=== PATIENT | male | born 1955 | race Caucasian/White ===

== ENCOUNTER 2019-01-20 12:32 | Inpatient (IN) ==
--- OUTSIDE RECORDS SUMMARY | 2019-01-20 12:35 | External Medical Summary | Continuity of Care Document ---
:1955 Author Name Micha Ellison Address Unavailable Unavailable , Care Team Providers Name Role Phone Unavailable Unavailable Unavailable Zackery Batres PA-C Unavailable [email or web address] M.D. 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) Dysfunction of right eustachian tube (381.81) (H69.81) Functional Status Hearing loss Allergies and Adverse Reactions No Known Drug Allergies (Allergy) Medications Clarithromycin 500 MG Oral Tablet; Take 1 tablet twice daily NASIR Batres Start: 02-Sep-2015 Quantity: 20 Refills: 0 Procedures Procedures not documented Immunizations Immunizations not documented Family History Unknown Family Member Family history of Diabetes Mellitus (V18.0) Status: Active Comments: Family History Family history of Prostate Cancer (V16.42) Status: Active Comments: Family History Social History - Smoking Status Never smoker Plan of Treatment Planned Observations Planned Goals not documented Results No Known Results Results not documented
[2019-01-20] MEDS ORDERED: KETOROLAC TROMETHAMINE 15 MG/ML VIAL IV STA (13:08)
[2019-01-20] MEDS ORDERED: ONDANSETRON INJ 2 MG/ML 2 ML VIAL IV STA (13:08)
[2019-01-20] MEDS: SODIUM CHLORIDE 0.9% 1000ML 1,000 ML IV SCH ×3 (13:22→22:43)
[2019-01-20 13:30] LABS: Appearance Urine Clear (Clear); Bacteria Urine Automated 3+ (Negative); Bilirubin Urine Negative (Negative); Blood Urine Trace (Negative); Color Urine Dark Yellow; Epithelial Cell Urine Auto 0-5 /lpf (0-5); Glucose Urine UA Negative (Negative); Ketones Urine 2+ (Negative); Leukocyte Esterase Urine 1+ (Negative); Nitrite Urine Positive (Negative); Protein Urine 1+ (Negative); RBC Urine Automated 0-4 /hpf (0-4); Specific Gravity Urine 1.034 (1.000-1.030); Urobilinogen Urine Negative (Negative); WBC Urine Automated >30 /hpf (0-5)
[2019-01-20 13:43] LABS: Albumin Level 3.4 gm/dl (3.4-5.0); BUN Creatinine Ratio 23.7 (10-20); Calcium 8.9 mg/dl (8.5-10.1); Creatinine Clr Calc Pharmacy 106.4 ml/min; Est GFR (African American) 111.3; Est GFR (Non-African American) 96.1; Potassium 4.4 mmol/L (3.5-5.1)
[2019-01-20 13:45] LABS: Bilirubin,Total 0.9 mg/dl (0.2-1); Globulin 3.3 gm/dl (2.5-4.0); Total Protein 6.7 gm/dl (6.4-8.2)
[2019-01-20 13:54] LABS: Hematocrit (blood only) 42.4 % (42-52); Hemoglobin 14.5 g/dL (14.0-18.0); Mean Corpuscular Hemoglobin 30.9 pg (25-34); Mean Corpuscular Hgb Conc 34.2 g/dL (32-36); Mean Corpuscular Volume 90.4 fL (80-100); RDW Standard Deviation 45.8 fL (36.4-46.3); Red Blood Count 4.69 M/uL (4.7-6.1)
[2019-01-20 13:55] LABS: Basophils # (auto) 0.01 K/uL (0-0.2); Basophils % (auto) 0.1 %; Eosinophils # (auto) 0.01 K/uL (0-0.5); Eosinophils % (auto) 0.1 %; Immature Granulocytes # (auto) 0.25 K/uL (0.00-0.02); Immature Granulocytes % (auto) 1.6 %; Lymphocytes # (auto) 2.86 K/uL (1.2-3.4); Lymphocytes % (auto) 17.9 %; Monocytes # (auto) 1.44 K/uL (0.11-0.59); Neutrophils # (auto) 11.43 K/uL (1.4-6.5); Neutrophils % (auto) 71.3 %
[2019-01-20] MEDS ORDERED: IOVERSOL 100ml IV PRN (14:23)
--- NOTE | 2019-01-20 14:39 | CT Scan Report ---
ABDOMEN AND PELVIS CT WITH IV CONTRAST CT DOSE: 1176.78 mGycm HISTORY: Acute bilateral flank pain b/l flank pain, ?renal stone on urgent KUB TECHNIQUE: Multiaxial CT images of the abdomen and pelvis were performed following the use of intrave nous contrast. A dose lowering technique was utilized adhering to the principles of ALARA. COMPARISON STUDY: Chest radiograph 08/26/2015 FINDINGS: Bibasilar groundglass opacities suggest probable atelectasis. Enlarged subcarinal lymph nodes. There is no pneumatosis or pneumoperitoneum. Imaged inferior cardiac chambers are mildly enlarged. Moderate attenuating circumscribed ovoid 2.3 x 1.3 x 2.8 cm cystic structure about the right epicardial fat p ad is noted abutting the pericardium. Spleen is mildly enlarged, 13.8 cm. Pancreas, gallbladder, adre nal glands appear unremarkable. There is suggestion of hepatic steatosis. Otherwise unremarkable appe arance of the liver. 5 mm hypodense lesion of the inferior right hepatic lobe is too small to charact erize. Patency of the hepatic and portal veins. Multiple renal sinus cysts are noted bilaterally, left greater than right. 1.3 cm cortical cyst of th e inferior pole left kidney. No renal or ureteral calculi or obstructive uropathy. Ureters are unrema rkable. Circumferential wall thickening of the bladder with perivesicular stranding. Prostamegaly. Sm all fat filled left inguinal hernia. Moderate sized right inguinal hernia contains mesenteric fat and nonobstructed loop of ileum. There is no bowel obstruction. Mild rectal wall thickening with mild pe rirectal inflammatory stranding. Moderate formed stool about the ascending and transverse colon. The appendix is not definitively seen. Aorta and IVC are unremarkable. Prominent inguinal chain lymph nodes measure up to 8 mm on the left. Prominent bilateral iliac chain with multiple enlarged retroperitoneal lymph nodes involving the nsaeem caval, and periaortic distributions. Index lymph node in the periaortic distribution measures 2.0 x 1 .1 cm on image 268 of series 3. Enlarged periportal and multiple prominent mesenteric lymph nodes are also present. Cluster of adenopathy seen about the right lower quadrant mesentery. Enlarged left axi llary chain lymph nodes measure up to 11 mm in short axis. Left iliac chain lymph node measures up to 2.3 x 1.8 cm. Soft tissues are within normal limits. No suspicious lytic or blastic bony lesions. De generative changes of the pelvis, hips and spine. IMPRESSION: 1. No renal calculi, ureteral calculi or obstructive uropathy. 2. Prostamegaly with urinary bladder wall thickening and perivesicular stranding. Correlate with urin alysis to exclude cystitis. 3. Mild rectal wall thickening with perirectal inflammation and prominent perirectal lymph nodes. Cor relate clinically to exclude proctitis. Findings also be correlated with colonoscopy if clinically wa rranted. 4. Enlarged subcarinal, periaortic, pericaval, iliac and axillary chain with prominent inguinal chain and mesenteric lymph nodes are nonspecific. Primary differential considerations would be a lymphopro liferative disorder or metastatic disease from unknown primary. Oncologic workup recommended. 5. Moderate right inguinal hernia contains mesenteric fat and nonobstructed loop of ileum. 6. Probable pericardial cyst, 2.8 cm. Electronically signed by: Osman Ness M.D. 01/20/2019 2:38 PM
[2019-01-20] MEDS ORDERED: cefTRIAXone SODIUM 2,000 MG/70 ML BAG IV STA (14:42)
[2019-01-20] MEDS ORDERED: SODIUM CHLORIDE 0.9% 1000ML 2,000 ML IV ONE (14:42)
[2019-01-20] MEDS ORDERED: PROCHLORPERAZINE 2 ML IV ONE (16:41)
[2019-01-20] MEDS ORDERED: ACETAMINOPHEN 1,000 MG/100 ML VIAL IV STA (16:41)
--- NOTE | 2019-01-20 21:24 | History and Physical Report ---
DATE OF ADMISSION: 01/20/2019 CHIEF COMPLAINT: Abdominal pain, flank pain and fever. HISTORY OF PRESENT ILLNESS: This is a 63-year-old male with no significant past medical history except for having UTI about 25 years ago, not on any medications, presents with ongoing fever, abdominal discomfort and flank pain and burning micturition going for last 3 days. Denies any hematuria. He was constipated a couple of days ago, but that got relieved. He did not eat anything in the last 24 hours, feeling nauseous, but currently hungry and wants to eat. Has some headaches. No blurred vision, no earache, no runny nose. Complains of some soreness in the neck, but no stiffness of the neck. No difficulty swallowing. No cough, no chest pain, no shortness of breath. No black stools or blood in the stools. No swelling in the legs, no rash. He is currently very weak and requiring help for ambulation. Prior to this episode, he was active. ALLERGIES: No known drug allergies. PAST MEDICAL HISTORY: As mentioned above. PAST SURGICAL HISTORY: Repair of inguinal hernia. MEDICATIONS: None. FAMILY HISTORY: Significant for mother had diabetes. SOCIAL HISTORY: . No smoking, no alcohol, no drugs. REVIEW OF SYMPTOMS: As per HPI. Rest of review of systems is negative. PHYSICAL EXAMINATION: GENERAL: The patient is of moderate build, not in acute distress. VITAL SIGNS: Temperature 36.9, pulse 77, respiratory rate 19, blood pressure 91/54, oxygen 94% on room air. HEENT: No pallor, no icterus. Pupils equal, round, reactive to light. NECK: No JVD, no neck masses, no carotid bruits. CARDIOVASCULAR: S1, S2 heard, regular rate and rhythm, no murmur, no gallop. RESPIRATORY SYSTEM: Normal AP diameter. No accessory muscle use. No wheezing, no crackles. ABDOMEN: Soft, bowel sounds present. Mild diffuse discomfort. No guarding, no rigidity. No distention. CENTRAL NERVOUS SYSTEM: Cranial nerves II-XII grossly nonfocal. EXTREMITIES: No edema, no erythema. LABORATORY DATA: WBC 16, hemoglobin 14.5, hematocrit 42.4. Sodium 136, potassium 4.4, chloride 105, bicarbonate 24, BUN 19, creatinine 0.7, serum glucose 123, calcium 8.9, total bilirubin 0.9, AST 18, ALT 24, alkaline phosphatase 71, lipase 59. Urinalysis positive for nitrite, leukocyte esterase. CT of abdomen and pelvis, no renal calculi, ureteral calculi or obstructive uropathy, prostatomegaly with urinary bladder wall thickening and perivascular stranding, correlate with urinalysis to exclude cystitis, mild rectal wall thickening with perirectal inflammation and prominent perirectal lymph nodes. Correlate clinically to exclude proctitis. Findings may be correlated with colonoscopy if clinically warranted. Enlarged subcarinal, periaortic, pericaval, iliac and axillary chain with prominent inguinal chain and mesenteric lymph nodes are nonspecific. Primary differential considerations are of lymphoproliferative disorder or metastatic disease of unknown primary. Oncology workup is recommended. Moderate right inguinal hernia containing mesenteric fat and nonobstructing loop of ileum, probable pericardial shift is 2.8 cm. ASSESSMENT AND PLAN: A 63-year-old male presents with ongoing cystitis,possible pyelonephritis. 1. Cystitis,possible pyelonephritis, ongoing fever, burning micturition,with abdominal pain for last 3 days, history of infection of urine 25 years ago. Received Rocephin in the ER. We will follow the cultures. UA is positive. Continue IV Rocephin, IV fluids. Closely monitor on the medical floor. Has prostatomegaly may consider consulting Urology or followup as outpatient. 2. Possible proctitis and rectal wall thickening. He did not have a colonoscopy in more than 10 years. We will consult GI while patient is here in the hospital. 3. Pericardial cyst on the CAT scan. We will get echocardiogram. 4. Enlarged lymphadenopathy in subcarinal, periaortic, pericaval, iliac and axillary chain and mesenteric lymph nodes, questionable differentials include lymphoproliferative disorder or metastatic disease from unknown primary. Needs an Oncology workup. Await GI input. Needs followup. 5. Deep venous thrombosis prophylaxis, sequential compression devices. 6. Disposition: Closely monitor on medical floor. Level 1 full code. MTDD
--- NOTE | 2019-01-20 21:27 | Emergency Department Note ---
Entered by Inocencia Molina acting as a scribe for History of Present Illness General Chief complaint: Flank Pain Stated complaint: LOWER BACK PAIN, AVALOS, FEVER Time Seen by Provider: 01/20/19 12:39 Source: patient History of Present Illness Provider complaint: Flank Pain Onset (ago): day(s) 2 Location: back (flank) Pain Consistency: + constant Maximum Pain Intensity: 10 Relieved By: not by medication (anti-nausea medication) Exacerbated By: + movement Associated symptoms: + denies other symptoms (diarrhea), + nausea/vomiting and + other (Painful Urination) The patient is a 63 year old male who presents to the Emergency Room with complaints of constant flank pain that began two days ago. The patient denies any diarrhea but reports nausea, vomiting, and painful urination. The patient states he has experienced about 5 episodes today while taking anti-nausea medication. He notes that the pain is worse with movement. The patient mentioned he had a previous bacterial infection in his kidneys 25 years prior but denies any history of kidney stones. Home Medications Home Medications Medication Instructions Recorded Confirmed Type acetaminophen [Tylenol Extra 500 mg PO Q6H PRN 01/20/19 01/20/19 History Strength] ibuprofen 200 mg PO Q6H PRN 01/20/19 01/20/19 History ondansetron 4 mg PO ONCE 01/20/19 01/20/19 History ondansetron 4 mg PO Q6H PRN 01/20/19 01/20/19 History Allergies Allergy/AdvReac Type Severity Reaction Status Date / Time No Known Allergies Allergy Unverified 01/20/19 14:18 Past Med/Surg History Medical History Kidney infection Family History Other No pertinent family history in first degree relatives Social History Preferred Language: Sinhala Communication Ability: Effective Beliefs That Will Affect Care: None Current Living Situation: Significant Other Other Information That Helps Us Care for You: No Feels Safe at Home: Yes Safety Concerns: Feels Safe At This Time Smoking Status: Never smoker Hx Alcohol Use: No Hx Substance Use: No Review of Systems See HPI for pertinent positives & negatives. and A total of 10 systems reviewed and were otherwise negative Physical Exam Vital Signs Vital Signs - 24 hr 01/20/19 12:35 01/20/19 13:25 01/20/19 13:27 Temperature 36.7 C Temperature Source Oral Sepsis Recent Fever Within 48 Hours No Sepsis New/Unexplained Change in Mental Status No Sepsis Action Taken by Nursing No Action Required Pulse Rate 78 72 Pulse Rate [Finger] Pulse Rate from SpO2 Sensor 72 Respiratory Rate 18 21 Respiratory Effort / Characteristics Non-Labored Respiratory Depth Normal Blood Pressure 112/72 Blood Pressure [Left Arm] Blood Pressure Mean 85 Blood Pressure Mean [Left Arm] Pulse Oximetry 96 94 94 Oxygen Delivery Method Room Air Room Air 01/20/19 13:30 01/20/19 14:00 01/20/19 14:30 Temperature Temperature Source Sepsis Recent Fever Within 48 Hours Sepsis New/Unexplained Change in Mental Status Sepsis Action Taken by Nursing Pulse Rate 73 70 69 Pulse Rate [Finger] Pulse Rate from SpO2 Sensor 72 70 Respiratory Rate 21 20 22 Respiratory Effort / Characteristics Respiratory Depth Blood Pressure Blood Pressure [Left Arm] Blood Pressure Mean Blood Pressure Mean [Left Arm] Pulse Oximetry 93 92 Oxygen Delivery Method 01/20/19 14:32 01/20/19 15:00 01/20/19 15:17 Temperature Temperature Source Sepsis Recent Fever Within 48 Hours Sepsis New/Unexplained Change in Mental Status Sepsis Action Taken by Nursing Pulse Rate 69 75 84 Pulse Rate [Finger] 66 Pulse Rate from SpO2 Sensor 69 74 82 Respiratory Rate 19 22 17 Respiratory Effort / Characteristics Respiratory Depth Blood Pressure 94/58 L 124/80 Blood Pressure [Left Arm] 94/58 L Blood Pressure Mean 70 94 Blood Pressure Mean [Left Arm] 70 Pulse Oximetry 94 95 94 Oxygen Delivery Method Room Air 01/20/19 15:20 01/20/19 15:21 01/20/19 15:30 Temperature Temperature Source Sepsis Recent Fever Within 48 Hours Sepsis New/Unexplained Change in Mental Status Sepsis Action Taken by Nursing Pulse Rate 74 74 73 Pulse Rate [Finger] Pulse Rate from SpO2 Sensor 75 74 74 Respiratory Rate 23 23 19 Respiratory Effort / Characteristics Respiratory Depth Blood Pressure 123/80 127/70 Blood Pressure [Left Arm] Blood Pressure Mean 94 89 Blood Pressure Mean [Left Arm] Pulse Oximetry 94 94 95 Oxygen Delivery Method 01/20/19 16:00 01/20/19 16:30 01/20/19 16:34 Temperature Temperature Source Sepsis Recent Fever Within 48 Hours Sepsis New/Unexplained Change in Mental Status Sepsis Action Taken by Nursing Pulse Rate 72 83 76 Pulse Rate [Finger] Pulse Rate from SpO2 Sensor 73 80 76 Respiratory Rate 21 18 26 H Respiratory Effort / Characteristics Respiratory Depth Blood Pressure 107/70 121/74 146/94 H Blood Pressure [Left Arm] Blood Pressure Mean 82 89 111 Blood Pressure Mean [Left Arm] Pulse Oximetry 96 92 94 Oxygen Delivery Method 01/20/19 17:00 01/20/19 17:04 01/20/19 17:30 Temperature Temperature Source Sepsis Recent Fever Within 48 Hours Sepsis New/Unexplained Change in Mental Status Sepsis Action Taken by Nursing Pulse Rate 82 79 82 Pulse Rate [Finger] Pulse Rate from SpO2 Sensor Respiratory Rate 30 H 18 22 Respiratory Effort / Characteristics Respiratory Depth Blood Pressure 114/65 124/75 Blood Pressure [Left Arm] Blood Pressure Mean 81 91 Blood Pressure Mean [Left Arm] Pulse Oximetry Oxygen Delivery Method 01/20/19 17:31 01/20/19 18:00 01/20/19 18:30 Temperature Temperature Source Sepsis Recent Fever Within 48 Hours Sepsis New/Unexplained Change in Mental Status Sepsis Action Taken by Nursing Pulse Rate 77 79 77 Pulse Rate [Finger] Pulse Rate from SpO2 Sensor Respiratory Rate 22 22 24 Respiratory Effort / Characteristics Respiratory Depth Blood Pressure 109/67 101/57 L Blood Pressure [Left Arm] Blood Pressure Mean 81 71 Blood Pressure Mean [Left Arm] Pulse Oximetry Oxygen Delivery Method 01/20/19 19:00 01/20/19 19:03 01/20/19 19:30 Temperature Temperature Source Sepsis Recent Fever Within 48 Hours Sepsis New/Unexplained Change in Mental Status Sepsis Action Taken by Nursing Pulse Rate 77 73 69 Pulse Rate [Finger] Pulse Rate from SpO2 Sensor Respiratory Rate 19 29 H 21 Respiratory Effort / Characteristics Respiratory Depth Blood Pressure 91/54 L 91/54 L 103/62 Blood Pressure [Left Arm] Blood Pressure Mean 66 66 75 Blood Pressure Mean [Left Arm] Pulse Oximetry Oxygen Delivery Method 01/20/19 19:31 01/20/19 20:00 01/20/19 20:01 Temperature Temperature Source Sepsis Recent Fever Within 48 Hours Sepsis New/Unexplained Change in Mental Status Sepsis Action Taken by Nursing Pulse Rate 70 74 75 Pulse Rate [Finger] Pulse Rate from SpO2 Sensor Respiratory Rate 19 18 22 Respiratory Effort / Characteristics Respiratory Depth Blood Pressure 102/64 Blood Pressure [Left Arm] Blood Pressure Mean 76 Blood Pressure Mean [Left Arm] Pulse Oximetry Oxygen Delivery Method GENERAL: Awake, alert, fatigued appearing, in no distress HENT: Normocephalic, atraumatic. Oropharynx with dry mucous membranes and otherwise unremarkable. EYES: Normal conjunctiva. Sclera non-icteric. NECK: Supple. No nuchal rigidity. FROM. No JVD. RESPIRATORY: Clear to auscultation bilaterally. CARDIAC: Regular rate, normal rhythm. Extremities warm and well perfused. Pulses equal. ABDOMEN: Soft, non-distended. No tenderness to palpation. No rebound or guarding. No masses. RECTAL: Deferred. MUSCULOSKELETAL: Chest examination reveals no tenderness. The back is symmetrical on inspection without obvious abnormality. There is no CVA ten derness to palpation. No joint edema. LOWER EXTREMITIES: Calves are equal size bilaterally and non-tender. No edema. No discoloration. NEURO: Normal sensorium. No sensory or motor deficits noted. SKIN: No rash or jaundice noted. Course 1253: Past medical records reviewed. The patient was evaluated in room C12B. A complete history and physical exam was performed. 1445: I reevaluated the patient and he is resting comfortably. I discussed the patient's test results and treatment plan with him. He verbally agrees and understands. 1934: I spoke with Dr. Guy about the patient's case. He will accept the patient for further evaluation. Administered Medications Sodium Chloride (Nss 1000ml) 1,000 mls @ 125 mls/hr IV .Q8H JUAN Stop: 02/19/19 22:01 Last Admin: 01/20/19 22:43 Dose: 125 mls/hr Documented by: [id number] Ondansetron HCl (Zofran) 4 mg IV Q6H PRN PRN Reason: Nausea Stop: 02/19/19 22:01 Last Admin: 01/20/19 22:43 Dose: 4 mg Documented by: [id number] Discontinued Medications Sodium Chloride (Nss 1000ml) 1,000 mls @ 999 mls/hr IV .Q1H1M JUAN Stop: 01/20/19 15:15 Last Infusion: 01/20/19 16:00 Dose: 0 mls/hr Documented by: [id number] Admin: 01/20/19 14:50 Dose: 999 mls/hr Documented by: [id number] Infusion: 01/20/19 14:28 Dose: 0 mls/hr Documented by: [id number] Admin: 01/20/19 13:22 Dose: 999 mls/hr Documented by: [id number] Ceftriaxone Sodium (Rocephin) 2,000 mg in 70 mls @ 140 mls/hr IV NOW STA Stop: 01/20/19 15:11 Last Infusion: 01/20/19 17:02 Dose: 0 mls/hr Documented by: [id number] Admin: 01/20/19 15:21 Dose: 140 mls/hr Documented by: [id number] Sodium Chloride (Nss 1000ml) 2,000 mls @ 999 mls/hr IV .Q2H1M ONE Stop: 01/20/19 16:42 Last Infusion: 01/20/19 17:56 Dose: 0 mls/hr Documented by: [id number] Admin: 01/20/19 15:21 Dose: 999 mls/hr Documented by: [id number] Acetaminophen (Ofirmev) 1,000 mg in 100 mls @ 400 mls/hr IV NOW STA Stop: 01/20/19 16:55 Last Infusion: 01/20/19 17:18 Dose: 0 mls/hr Documented by: [id number] Admin: 01/20/19 16:58 Dose: 400 mls/hr Documented by: [id number] Prochlorperazine (Compazine) 2 mls @ 1 mls/min IV ONE ONE Stop: 01/20/19 16:42 Last Admin: 01/20/19 16:58 Dose: 1 mls/min Documented by: [id number] Ioversol (Optiray 320 100ml) 93 ml IV ONCE PRN PRN Reason: Interaction Checking Stop: 01/24/19 14:22 Last Admin: 01/20/19 14:23 Dose: 93 ml Documented by: [id number] Ketorolac Tromethamine (Toradol) 15 mg IV NOW STA Stop: 01/20/19 13:09 Last Admin: 01/20/19 13:22 Dose: 15 mg Documented by: [id number] Ondansetron HCl (Zofran) 4 mg IV NOW STA Stop: 01/20/19 13:09 Last Admin: 01/20/19 13:22 Dose: 4 mg Documented by: [id number] Medical Decision Making Differential Diagnosis Differential diagnosis: Etiologies such as shingles, pyelonephritis/UTI, renal colic, appendicitis, diverticulitis, mesenteric ischemia, torsion, aortic pathology, infections, inflammatory bowel disease, bowel obstruction, PUD, biliary pathology, as well as others were entertained. Medical Records Attestation: I reviewed the patient's medical records. Home Medications Current Medication List: was personally reviewed by me Laboratory Data Attestation: I reviewed the patient's lab results. Result diagrams: 01/20/19 13:16 01/20/19 13:16 Lab Results 01/20/19 01/20/19 01/20/19 Range/Units 13:16 13:16 13:16 WBC 16.00 H (4.8-10.8) K/uL RBC 4.69 L (4.7-6.1) M/uL Hgb 14.5 (14.0-18.0) g/dL Hct 42.4 (42-52) % MCV 90.4 (80-100) fL MCH 30.9 (25-34) pg MCHC 34.2 (32-36) g/dL RDW Std Deviation 45.8 (36.4-46.3) fL RDW Coeff of Ho 14.0 (11.5-14.5) % Plt Count (130-400) K/uL Immature Gran % (Auto) 1.6 % Neut % (Auto) 71.3 % Lymph % (Auto) 17.9 % [place] % (Auto) 9.0 % Eos % (Auto) 0.1 % Baso % (Auto) 0.1 % Immature Gran # (Auto) 0.25 H (0.00-0.02) K/uL Neut # (Auto) 11.43 H (1.4-6.5) K/uL Lymph # (Auto) 2.86 (1.2-3.4) K/uL [place] # (Auto) 1.44 H (0.11-0.59) K/uL Eos # (Auto) 0.01 (0-0.5) K/uL Baso # (Auto) 0.01 (0-0.2) K/uL Sodium 136 (136-145) mmol/L Potassium 4.4 (3.5-5.1) mmol/L Chloride 105 (98-107) mmol/L Carbon Dioxide 24 (21-32) mmol/L Anion Gap 7.0 (3-11) BUN 19 H (7-18) mg/dl Creatinine 0.78 (0.6-1.4) mg/dl Est Cr Clr Drug Dosing 106.4 ml/min Est GFR ( Amer) 111.3 Est GFR (Non-Af Amer) 96.1 BUN/Creatinine Ratio 23.7 H (10-20) Glucose 123 H (70-99) mg/dl Calcium 8.9 (8.5-10.1) mg/dl Total Bilirubin 0.9 (0.2-1) mg/dl AST 18 (15-37) U/L ALT 24 (12-78) U/L Alkaline Phosphatase 71 (45-117) U/L Total Protein 6.7 (6.4-8.2) gm/dl Albumin 3.4 (3.4-5.0) gm/dl Globulin 3.3 (2.5-4.0) gm/dl Albumin/Globulin Ratio 1.0 (0.9-2) Lipase 59 L (73-393) U/L Specimen Hemolysis Urine Color Dark Yellow Urine Appearance Clear (Clear) Urine pH 5.0 (4.5-7.5) Ur Specific [place] 1.034 H (1.000-1.030) Urine Protein 1+ H (Negative) Urine Glucose (UA) Negative (Negative) Urine Ketones 2+ H (Negative) Urine Blood Trace H (Negative) Urine Nitrite Positive A (Negative) Urine Bilirubin Negative (Negative) Urine Urobilinogen Negative (Negative) Ur Leukocyte Esterase 1+ H (Negative) Urine WBC (Auto) >30 H (0-5) /hpf Urine RBC (Auto) 0-4 (0-4) /hpf U Hyaline Cast (Auto) 10-30 H (0-5) /lpf U Epithel Cells (Auto) 0-5 (0-5) /lpf Urine Bacteria (Auto) 3+ H (Negative) Imaging Data Radiologist's Impression: Radiology results as stated below per my review and the radiologist's interpretation: ABDOMEN AND PELVIS CT WITH IV CONTRAST CT DOSE: 1176.78 mGycm HISTORY: Acute bilateral flank pain b/l flank pain, ?renal stone on urgent KUB TECHNIQUE: Multiaxial CT images of the abdomen and pelvis were performed following the use of intravenous contrast. A dose lowering technique was utilized adhering to the principles of ALARA. COMPARISON STUDY: Chest radiograph 08/26/2015 FINDINGS: Bibasilar groundglass opacities suggest probable atelectasis. Enlarged subcarinal lymph nodes. There is no pneumatosis or pneumoperitoneum. Imaged inferior cardiac chambers are mildly enlarged. Moderate attenuating circumscribed ovoid 2.3 x 1.3 x 2.8 cm cystic structure about the right epicardial fat pad is noted abutting the pericardium. Spleen is mildly enlarged, 13.8 cm. Pancreas, gallbladder, adrenal glands appear unremarkable. There is suggestion of hepatic steatosis. Otherwise unremarkable appearance of the liver. 5 mm hypodense lesion of the inferior right hepatic lobe is too small to characterize. Patency of the hepatic and portal veins. Multiple renal sinus cysts are noted bilaterally, left greater than right. 1.3 cm cortical cyst of the inferior pole left kidney. No renal or ureteral calculi or obstructive uropathy. Ureters are unremarkable. Circumferential wall thickening of the bladder with perivesicular stranding. Prostamegaly. Small fat filled left inguinal hernia. Moderate sized right inguinal hernia contains mesenteric fat and nonobstructed loop of ileum. There is no bowel obstruction. Mild rectal wall thickening with mild perirectal inflammatory stranding. Moderate formed stool about the ascending and transverse colon. The appendix is not definitively seen. Aorta and IVC are unremarkable. Prominent inguinal chain lymph nodes measure up to 8 mm on the left. Prominent bilateral iliac chain with multiple enlarged retroperitoneal lymph nodes involving the pericaval, and periaortic distributions. Index lymph node in the periaortic distribution measures 2.0 x 1.1 cm on image 268 of series 3. Enlarged periportal and multiple prominent mesenteric lymph nodes are also present. Cluster of adenopathy seen about the right lower quadrant mesentery. Enlarged left axillary chain lymph nodes measure up to 11 mm in short axis. Left iliac chain lymph node measures up to 2.3 x 1.8 cm. Soft tissues are within normal limits. No suspicious lytic or blastic bony lesions. Degenerative changes of the pelvis, hips and spine. IMPRESSION: 1. No renal calculi, ureteral calculi or obstructive uropathy. 2. Prostamegaly with urinary bladder wall thickening and perivesicular stranding. Correlate with urinalysis to exclude cystitis. 3. Mild rectal wall thickening with perirectal inflammation and prominent perirectal lymph nodes. Correlate clinically to exclude proctitis. Findings also be correlated with colonoscopy if clinically warranted. 4. Enlarged subcarinal, periaortic, pericaval, iliac and axillary chain with prominent inguinal chain and mesenteric lymph nodes are nonspecific. Primary differential considerations would be a lymphoproliferative disorder or metastatic disease from unknown primary. Oncologic workup recommended. 5. Moderate right inguinal hernia contains mesenteric fat and nonobstructed loop of ileum. 6. Probable pericardial cyst, 2.8 cm. Electronically signed by: Osman Ness M.D. 01/20/2019 2:38 PM Blood Pressure Blood Pressure Findings: Low blood pressure Blood Pressure Disposition: further management by hospitalist MDM Narrative The patient is a pleasant 63-year-old gentleman with a past medical history of pyelonephritis, remotely who presents emergency department with generalized weakness, nausea, bilateral flank pain with question of kidney stone on urgent care KUB sent to the ED for further evaluation per hpi. On arrival the patient is uncomfortable fatigued appearing but no acute distress, afebrile stable vital signs. Abdomen is benign. Patient appears clinically dry. WBC 16K with left shift. H/H within normal limits. Chemistry without acidosis. Electrolytes and LFTs unremarkable. UA consistent with UTI with positive nitrites, WBCs and 3+ bacteria. CT abdomen pelvis demonstrates findings consistent with cystitis and otherwise no evidence of renal or ureteral uropathy. Diffuse LAD seen suspicious for malignancy. Given the patient's generalized symptoms possibly related to early upper infection although no evidence for this on CT. Patient was treated with IV ceftriaxone and IV fluid hydration. On reevaluation patient felt improved however still reporting significant generalized weakness and myalgias and preferred admission. Case was discussed with Dr. Feldman, [facility] hospitalist, who will evaluate the patient for admission. Impression & Plan Acute pyelonephritis, Lymphadenopathy Discharge Plan Visit Data *Final* Discharge Date/Time: 01/20/19 21:44 Chief Complaint: Flank Pain Stated Complaint: LOWER BACK PAIN, AVALOS, FEVER ED Provider: Gurwinder Robin Discharge Problem: Acute pyelonephritis, Lymphadenopathy Patient Disposition: Admitted As Inpatient Discharge Instructions Interventions: ED Discharge Assessment Last Done: 01/20/19 21:44 The scribe's documentation has been prepared under my direction and personally reviewed by me in its entirety. I confirm that the note above accurately reflects all work, treatment, procedures, and medical decision making performed by me.
[2019-01-20] MEDS ORDERED: POLYETHYLENE (MIRALAX) 17 GM PACK PO PRN (22:02)
[2019-01-20] MEDS ORDERED: ONDANSETRON INJ 2 MG/ML 2 ML VIAL IV PRN (22:02)
[2019-01-21 06:14] LABS: BUN Creatinine Ratio 20.4 (10-20); Calcium 7.7 mg/dl (8.5-10.1); Creatinine Clr Calc Pharmacy 113.7 ml/min; Est GFR (African American) 114.4; Est GFR (Non-African American) 98.7; Magnesium 1.9 mg/dl (1.8-2.4)
[2019-01-21] MEDS: SODIUM CHLORIDE 0.9% 1000ML 1,000 ML IV SCH ×3 (06:18→22:14)
[2019-01-21] MEDS: ACETAMINOPHEN 325 MG TAB PO PRN ×3 (06:20→22:14)
[2019-01-21 06:43] LABS: Mean Corpuscular Hgb Conc 34.3 g/dL (32-36)
[2019-01-21 06:44] LABS: Basophils # (auto) 0.02 K/uL (0-0.2); Basophils % (auto) 0.2 %; Echinocytes 1+; Eosinophils # (auto) 0.05 K/uL (0-0.5); Eosinophils % (auto) 0.4 %; Hematocrit (blood only) 36.1 % (42-52); Hemoglobin 12.4 g/dL (14.0-18.0); Immature Granulocytes # (auto) 0.05 K/uL (0.00-0.02); Immature Granulocytes % (auto) 0.4 %; Lymphocytes # (auto) 2.45 K/uL (1.2-3.4); Lymphocytes % (auto) 20.5 %; Mean Corpuscular Hemoglobin 30.9 pg (25-34); Monocytes # (auto) 1.01 K/uL (0.11-0.59); Monocytes % (auto) 8.5 %; Neutrophils # (auto) 8.37 K/uL (1.4-6.5); RDW Standard Deviation 46.6 fL (36.4-46.3); Red Blood Count 4.01 M/uL (4.7-6.1); White Blood Count 11.95 K/uL (4.8-10.8)
--- NOTE | 2019-01-21 09:35 | Hospitalist Progress Note ---
Date of Service January 21, 2019 Assessment & Plan (1) Acute pyelonephritis: (2) Lymphadenopathy: (3) Leukocytosis: Continue Abx, GI to see for abd LAD, WBCs coming down, IVFs ROS-No Headache, No Visual Changes, No Nausea, No Vomiting, + Fever, + Chills, No Neck Pain or Stiffness, No Chest Pain, No Palpitations, No SOB, No MANUEL, No Cough, No Sputum, No Wheezing, No Abdominal Pain, No Diarrhea, No Hematemesis, No Hemoptysis, No Unexpected Weight Loss, + Flank pain, No Melena, No Hematochezia, No Frequency, No Urgency, No Burning, No Hematuria, No Rashes, No Diaphoresis. Appetite is Normal Physical Exam Gen-AAO x 3, NAD, Afebrile Head-NCAT, EOMI, PERRLA, Anicteric Sclera, No Posterior Pharyngeal Erythema Neck-Supple, No JVD, No Thyromegaly, No Masses, No LAD, No Bruits Lungs-Clear to Auscultation Bilaterally, No Rales, No Rhonchi, No Wheezing, No Crepitus Chest-No S4, +S1, +S2, No S3, No Murmurs, No Rubs, No Gallops, No Ectopy Abdomen-Soft, Bowel Sounds Present, Non Tender, Non Distended, No Hepatomegaly, No Splenomegaly, No Palpable Masses, No Rebound, No Rigidity, No Guarding Musculoskeletal-Full Range of Motion Bilaterally, +CVAT Extremities-No Cyanosis, No Clubbing, No Edema Nuero-Cranial Nerves II-XII grossly intact, Motor WNL, DTRs WNL, Strength WNL, Non Focal Psych-Normal Mood Results & Data Vital Signs (Past 12 Hours) Vital Signs Temp Pulse Pulse Resp BP Pulse Ox 01/21/19 07:26 37.4 C 70 16 101/64 91 01/20/19 22:07 37.2 C 80 16 116/73 92 01/20/19 21:40 80 22 Allergies No Known Allergies Allergy (Unverified 01/20/19 14:18) Height/Weight/Isolation Height 6 ft Weight 92 kg CBC 01/20/19 01/20/19 01/20/19 13:16 13:16 13:16 WBC 16.00 H RBC 4.69 L Hgb 14.5 Hct 42.4 MCV 90.4 MCH 30.9 MCHC 34.2 RDW Std Deviation 45.8 RDW Coeff of Ho 14.0 Plt Count Immature Gran % (Auto) 1.6 Neut % (Auto) 71.3 Lymph % (Auto) 17.9 [place] % (Auto) 9.0 Eos % (Auto) 0.1 Baso % (Auto) 0.1 Immature Gran # (Auto) 0.25 H Neut # (Auto) 11.43 H Lymph # (Auto) 2.86 [place] # (Auto) 1.44 H Eos # (Auto) 0.01 Baso # (Auto) 0.01 Echinocytes Sodium 136 Potassium 4.4 Chloride 105 Carbon Dioxide 24 Anion Gap 7.0 BUN 19 H Creatinine 0.78 Est Cr Clr Drug Dosing 106.4 Est GFR ( Amer) 111.3 Est GFR (Non-Af Amer) 96.1 BUN/Creatinine Ratio 23.7 H Glucose 123 H Calcium 8.9 Magnesium Total Bilirubin 0.9 AST 18 ALT 24 Alkaline Phosphatase 71 Total Protein 6.7 Albumin 3.4 Globulin 3.3 Albumin/Globulin Ratio 1.0 Lipase 59 L Specimen Hemolysis Urine Color Dark Yellow Urine Appearance Clear Urine pH 5.0 Ur Specific [place] 1.034 H Urine Protein 1+ H Urine Glucose (UA) Negative Urine Ketones 2+ H Urine Blood Trace H Urine Nitrite Positive A Urine Bilirubin Negative Urine Urobilinogen Negative Ur Leukocyte Esterase 1+ H Urine WBC (Auto) >30 H Urine RBC (Auto) 0-4 U Hyaline Cast (Auto) 10-30 H U Epithel Cells (Auto) 0-5 Urine Bacteria (Auto) 3+ H 01/21/19 01/21/19 05:16 05:16 WBC 11.95 H RBC 4.01 L Hgb 12.4 L Hct 36.1 L MCV 90.0 MCH 30.9 MCHC 34.3 RDW Std Deviation 46.6 H RDW Coeff of Ho 14.0 Plt Count Immature Gran % (Auto) 0.4 Neut % (Auto) 70.0 Lymph % (Auto) 20.5 [place] % (Auto) 8.5 Eos % (Auto) 0.4 Baso % (Auto) 0.2 Immature Gran # (Auto) 0.05 H Neut # (Auto) 8.37 H Lymph # (Auto) 2.45 [place] # (Auto) 1.01 H Eos # (Auto) 0.05 Baso # (Auto) 0.02 Echinocytes 1+ Sodium 140 Potassium 4.0 Chloride 109 H Carbon Dioxide 24 Anion Gap 7.0 BUN 15 Creatinine 0.73 Est Cr Clr Drug Dosing 113.7 Est GFR ( Amer) 114.4 Est GFR (Non-Af Amer) 98.7 BUN/Creatinine Ratio 20.4 H Glucose 113 H Calcium 7.7 L Magnesium 1.9 Total Bilirubin AST ALT Alkaline Phosphatase Total Protein Albumin Globulin Albumin/Globulin Ratio Lipase Specimen Hemolysis Urine Color Urine Appearance Urine pH Ur Specific [place] Urine Protein Urine Glucose (UA) Urine Ketones Urine Blood Urine Nitrite Urine Bilirubin Urine Urobilinogen Ur Leukocyte Esterase Urine WBC (Auto) Urine RBC (Auto) U Hyaline Cast (Auto) U Epithel Cells (Auto) Urine Bacteria (Auto) Chemistry 01/20/19 01/21/19 13:16 05:16 Sodium 136 140 Potassium 4.4 4.0 Chloride 105 109 H Carbon Dioxide 24 24 Anion Gap 7.0 7.0 BUN 19 H 15 Creatinine 0.78 0.73 Glucose 123 H 113 H Urinalysis 01/20/19 13:16 Urine Color Dark Yellow Urine Appearance Clear Urine pH 5.0 Ur Specific [place] 1.034 H Urine Protein 1+ H Urine Glucose (UA) Negative Urine Ketones 2+ H Urine Blood Trace H Urine Nitrite Positive A Urine Bilirubin Negative Microbiology 01/20/19 13:16 Urine,Clean Catch Urine Culture - Preliminary Escherichia coli
--- NOTE | 2019-01-21 11:37 | Gastrointestinal Consultation ---
Date of Consultation January 21, 2019 Assessment & Plan (1) Constipation: (2) Proctitis: Pt is a 63 y/o male, currently admitted for pyelonephritis, Ecoli UTI. During his evaluation CT abd/pelvis showed rectal wall thickening w perirectal inflammation and prominent perirectal lymph nodes suspected to be proctitis. He has hx of constipation but currently denies any rectal pain/bleeding, pressure. - Recommend bowel regimen such as Miralax 17g daily to prevent constipation - Offered colonoscopy eval but given current issues w pyelonephritis, he prefers to have this done after he's discharged in outpt setting. We will thus call him to set up outpt colonoscopy upon his DC. Supervising Physician Co-Signing Physician Notes I have personally seen and examined the patient with YVETTE Lopez. Her note reflects my exam and findings. I agree with her impression and plan. I recommend fully treating urinary infection and we will arrange out patient colonoscopy. Jose Jamison M.D. History of Present Illness Reason for Consultation: Proctitis Requesting Physician: Dr. Jason Barksdale Attending Physician: Dr. Jose Jamison History of Present Illness Pt is a 63 y/o male who presented w bilateral flank pain, lower abd pressure sensation when trying to urinate, found to have E.coli UTI currently being treated w Ceftriaxone IV. During his evaluation, he had CT abd/pelvis evidence of mild rectal wall thickening w perirectal inflammation and prominent perirectal lymph nodes. Findings suspicious for proctitis and thus GI was consulted. Pt reports hx of constipation. However usually managed w dietary changes. He denies any rectal pain, burning, pressure sensation. Hx of colonoscopy [place] [address] Montoya but I was unable to retrieve report. Pt however doesn't remember anything being abnormal in the colonoscopy. Denies any personal or family of colorectal ca or IBD. Allergies Allergy/AdvReac Type Severity Reaction Status Date / Time No Known Allergies Allergy Unverified 01/20/19 14:18 Home Medications Home Medications Medication Instructions Recorded Confirmed Type acetaminophen [Tylenol Extra 500 mg PO Q6H PRN 01/20/19 01/20/19 History Strength] ibuprofen 200 mg PO Q6H PRN 01/20/19 01/20/19 History ondansetron 4 mg PO ONCE 01/20/19 01/20/19 History ondansetron 4 mg PO Q6H PRN 01/20/19 01/20/19 History Patient History Medical History Kidney infection Family History Other No pertinent family history in first degree relatives Social History Preferred Language: German Communication Ability: Effective Beliefs That Will Affect Care: None Current Living Situation: Significant Other Other Information That Helps Us Care for You: No Feels Safe at Home: Yes Safety Concerns: Feels Safe At This Time Smoking Status: Never smoker Hx Alcohol Use: No Hx Substance Use: No Review of Systems Review of Systems: All systems reviewed & are unremarkable except as noted in HPI & below Physical Exam Constitutional: WD/WN, vitals as above well groomed, cooperative and comfortable Eyes: PERRL, conjunctivae normal, anicteric sclerae ENMT: external ear and nose normal, oropharynx normal Respiratory: normal respiratory effort, lungs clear to auscultation Cardiovascular: RRR, no murmur, no edema Gastrointestinal (Abdomen): normal bowel sounds, soft, nontender, no hepatosplenomegaly Skin: no rashes, warm and dry no jaundice Psychiatric: A+Ox3, euthymic affect Lymphatic: no lymphedema Results & Data Vital Signs (Past 12 Hours) Vital Signs Temp Pulse Resp BP Pulse Ox 01/21/19 07:26 37.4 C 70 16 101/64 91 Laboratory Results Laboratory Results - last 72 hr 01/20/19 01/20/19 01/20/19 13:16 13:16 13:16 WBC 16.00 H RBC 4.69 L Hgb 14.5 Hct 42.4 MCV 90.4 MCH 30.9 MCHC 34.2 RDW Std Deviation 45.8 RDW Coeff of Ho 14.0 Plt Count Immature Gran % (Auto) 1.6 Neut % (Auto) 71.3 Lymph % (Auto) 17.9 Swisher % (Auto) 9.0 Eos % (Auto) 0.1 Baso % (Auto) 0.1 Immature Gran # (Auto) 0.25 H Neut # (Auto) 11.43 H Lymph # (Auto) 2.86 Swisher # (Auto) 1.44 H Eos # (Auto) 0.01 Baso # (Auto) 0.01 Echinocytes Sodium 136 Potassium 4.4 Chloride 105 Carbon Dioxide 24 Anion Gap 7.0 BUN 19 H Creatinine 0.78 Est Cr Clr Drug Dosing 106.4 Est GFR ( Amer) 111.3 Est GFR (Non-Af Amer) 96.1 BUN/Creatinine Ratio 23.7 H Glucose 123 H Calcium 8.9 Magnesium Total Bilirubin 0.9 AST 18 ALT 24 Alkaline Phosphatase 71 Total Protein 6.7 Albumin 3.4 Globulin 3.3 Albumin/Globulin Ratio 1.0 Lipase 59 L Specimen Hemolysis Urine Color Dark Yellow Urine Appearance Clear Urine pH 5.0 Ur Specific Topock 1.034 H Urine Protein 1+ H Urine Glucose (UA) Negative Urine Ketones 2+ H Urine Blood Trace H Urine Nitrite Positive A Urine Bilirubin Negative Urine Urobilinogen Negative Ur Leukocyte Esterase 1+ H Urine WBC (Auto) >30 H Urine RBC (Auto) 0-4 U Hyaline Cast (Auto) 10-30 H U Epithel Cells (Auto) 0-5 Urine Bacteria (Auto) 3+ H 01/21/19 01/21/19 05:16 05:16 WBC 11.95 H RBC 4.01 L Hgb 12.4 L Hct 36.1 L MCV 90.0 MCH 30.9 MCHC 34.3 RDW Std Deviation 46.6 H RDW Coeff of Ho 14.0 Plt Count Immature Gran % (Auto) 0.4 Neut % (Auto) 70.0 Lymph % (Auto) 20.5 Swisher % (Auto) 8.5 Eos % (Auto) 0.4 Baso % (Auto) 0.2 Immature Gran # (Auto) 0.05 H Neut # (Auto) 8.37 H Lymph # (Auto) 2.45 Swisher # (Auto) 1.01 H Eos # (Auto) 0.05 Baso # (Auto) 0.02 Echinocytes 1+ Sodium 140 Potassium 4.0 Chloride 109 H Carbon Dioxide 24 Anion Gap 7.0 BUN 15 Creatinine 0.73 Est Cr Clr Drug Dosing 113.7 Est GFR ( Amer) 114.4 Est GFR (Non-Af Amer) 98.7 BUN/Creatinine Ratio 20.4 H Glucose 113 H Calcium 7.7 L Magnesium 1.9 Total Bilirubin AST ALT Alkaline Phosphatase Total Protein Albumin Globulin Albumin/Globulin Ratio Lipase Specimen Hemolysis Urine Color Urine Appearance Urine pH Ur Specific Topock Urine Protein Urine Glucose (UA) Urine Ketones Urine Blood Urine Nitrite Urine Bilirubin Urine Urobilinogen Ur Leukocyte Esterase Urine WBC (Auto) Urine RBC (Auto) U Hyaline Cast (Auto) U Epithel Cells (Auto) Urine Bacteria (Auto)
[2019-01-21] MEDS: cefTRIAXone SODIUM 2,000 MG in DEXTROSE 5% 50 ML IV SCH (13:03)
[2019-01-21] MEDS ORDERED: PNEUMOCOCCAL POLYSACCHARIDES 25 MCG/0.5 ML VIAL/SYR IM ONE (16:30)
[2019-01-21] MEDS ORDERED: PNEUMOCOCCAL ADMINISTRATION CHARGE ONE (16:30)
[2019-01-22] MEDS: SODIUM CHLORIDE 0.9% 1000ML 1,000 ML IV SCH ×3 (05:30→20:58)
[2019-01-22] MEDS: ACETAMINOPHEN 325 MG TAB PO PRN ×2 (05:47→15:34)
[2019-01-22 07:52] LABS: BUN Creatinine Ratio 11.9 (10-20); Calcium 7.8 mg/dl (8.5-10.1); Creatinine Clr Calc Pharmacy 101.2 ml/min; Est GFR (African American) 109.1; Est GFR (Non-African American) 94.1; Potassium 3.8 mmol/L (3.5-5.1)
[2019-01-22] MEDS: DOCUSATE SODIUM 100 MG CAP PO SCH ×2 (11:51→20:57)
[2019-01-22] MEDS: cefTRIAXone SODIUM 2,000 MG in DEXTROSE 5% 50 ML IV SCH (13:01)
--- NOTE | 2019-01-22 18:15 | Hospitalist Progress Note ---
Date of Service January 22, 2019 Assessment & Plan (1) Acute pyelonephritis: CT ABD:No renal calculi, ureteral calculi or obstructive uropathy. Prostamegaly with urinary bladder wall thickening and perivesicular stranding. Correlate with urinalysis to exclude cystitis. Mild rectal wall thickening with perirectal inflammation and prominent perirectal lymph nodes. Correlate clinically to exclude proctitis. Findings also be correlated with colonoscopy if clinically warranted. Enlarged subcarinal, periaortic, pericaval, iliac and axillary chain with prominent inguinal chain and mesenteric lymph nodes are nonspecific. Primary differential considerations would be a lymphoproliferative disorder or metastatic disease from unknown primary. Oncologic workup recommended. Moderate right inguinal hernia contains mesenteric fat and nonobstructed loop of ileum. Probable pericardial cyst, 2.8 cm. Urine Cx:E.coli--Ly sensitive Continue Ceftriaxone DAY #2 Constipation Proctitis Perirectal lymphadenopathy Continue bowel regimen Appreciate GI input Plan for outpatient colonoscopy upon discharge May need oncology evaluation and repeat imaging as outpatient upon discharge once acute infection is treated ?? Pericardial cyst Incidental finding on CT scan Echo--- pericardial cyst not visualized but not excluded consistent with limitations of the study May need follow up PCP/cardiology as outpatient DVT Px: Heparin SQ Code Status Full Code Disposition: Likely to discharge home when stable Subjective Patient is seen and examined at bedside Reports constipation Dysuria resolved States having poor sleep overnight, feels tired today Denies any chest pain, shortness of breath, dizziness, nausea, vomiting Offers no other complaints Review of Systems Review of Systems: All systems reviewed & are unremarkable except as noted in HPI & below Physical Exam Physical Exam: Physical Exam: Vitals signs as noted above General Appearance:Moderately built and nourished, no apparent distress Head: normocephalic, Atraumatic Eyes: normal inspection, EOMI Neck: supple, Trachea midline Respiratory/Chest: Normal breath sounds, CTA Cardiovascular: S1, S2, No murmur Abdomen/GI:Soft, Non tender, Bowel sounds present Extremities/Musculoskelatal:normal inspection, no edema Neurologic/Psych:AAOX3, grossly no focal neurological deficits Skin: normal color, warm Results & Data Vital Signs (Past 12 Hours) Vital Signs Temp Pulse Resp BP Pulse Ox 01/22/19 17:15 37.2 C 01/22/19 15:15 37.6 C H 78 18 123/74 96 01/22/19 07:04 37.4 C 69 16 122/77 94 Laboratory Results [facility] 01/22/19 06:52 Sodium 142 Potassium 3.8 Chloride 112 H Carbon Dioxide 26 BUN 10 D Creatinine 0.82 Glucose 130 H Calcium 7.8 L
[2019-01-22 19:28] LABS: INR 1.1 (0.9-1.1); Prothrombin Time 11.3 Seconds (9.0-12.0)
[2019-01-22] MEDS: HEPARIN SOD 5,000 UNIT/0.5 ML VIAL SQ SCH (20:58)
[2019-01-23] MEDS: SODIUM CHLORIDE 0.9% 1000ML 1,000 ML IV SCH ×2 (04:58→12:45)
[2019-01-23] MEDS: ACETAMINOPHEN 325 MG TAB PO PRN (07:26)
[2019-01-23 07:47] LABS: Hematocrit (blood only) 36.4 % (42-52); Hemoglobin 12.4 g/dL (14.0-18.0); Mean Corpuscular Hemoglobin 30.6 pg (25-34); Mean Corpuscular Hgb Conc 34.1 g/dL (32-36); Mean Corpuscular Volume 89.9 fL (80-100); RDW Coefficient of Variation 14.2 % (11.5-14.5); RDW Standard Deviation 47.1 fL (36.4-46.3); Red Blood Count 4.05 M/uL (4.7-6.1); White Blood Count 9.07 K/uL (4.8-10.8)
[2019-01-23 07:52] LABS: Basophils # (auto) 0.03 K/uL (0-0.2); Basophils % (auto) 0.3 %; Eosinophils # (auto) 0.17 K/uL (0-0.5); Eosinophils % (auto) 1.9 %; Immature Granulocytes # (auto) 0.04 K/uL (0.00-0.02); Immature Granulocytes % (auto) 0.4 %; Lymphocytes # (auto) 3.12 K/uL (1.2-3.4); Lymphocytes % (auto) 34.4 %; Monocytes # (auto) 0.94 K/uL (0.11-0.59); Monocytes % (auto) 10.4 %; Neutrophils # (auto) 4.77 K/uL (1.4-6.5); Neutrophils % (auto) 52.6 %
[2019-01-23 07:56] LABS: BUN Creatinine Ratio 12.3 (10-20); Calcium 8.5 mg/dl (8.5-10.1); Creatinine Clr Calc Pharmacy 127.7 ml/min; Est GFR (Non-African American) 103.5; Magnesium 2.1 mg/dl (1.8-2.4)
[2019-01-23] MEDS: DOCUSATE SODIUM 100 MG CAP PO SCH (09:46)
[2019-01-23] MEDS: HEPARIN SOD 5,000 UNIT/0.5 ML VIAL SQ SCH (09:46)
--- NOTE | 2019-01-23 13:33 | Hospitalist Progress Note ---
Date of Service January 23, 2019 Assessment & Plan (1) Acute pyelonephritis: CT ABD:No renal calculi, ureteral calculi or obstructive uropathy. Prostamegaly with urinary bladder wall thickening and perivesicular stranding. Correlate with urinalysis to exclude cystitis. Mild rectal wall thickening with perirectal inflammation and prominent perirectal lymph nodes. Correlate clinically to exclude proctitis. Findings also be correlated with colonoscopy if clinically warranted. Enlarged subcarinal, periaortic, pericaval, iliac and axillary chain with prominent inguinal chain and mesenteric lymph nodes are nonspecific. Primary differential considerations would be a lymphoproliferative disorder or metastatic disease from unknown primary. Oncologic workup recommended. Moderate right inguinal hernia contains mesenteric fat and nonobstructed loop of ileum. Probable pericardial cyst, 2.8 cm. Urine Cx:E.coli--Ly sensitive Continue Ceftriaxone DAY #3 Plan to transition to PO Abx upon discharge Constipation Proctitis Perirectal lymphadenopathy Continue bowel regimen Appreciate GI input No rectal pain or bleeding Plan for outpatient colonoscopy upon discharge May need oncology evaluation and repeat imaging as outpatient upon discharge once acute infection is treated Continue bowel regimen for constipation ?? Pericardial cyst Incidental finding on CT scan Echo--- pericardial cyst not visualized but not excluded consistent with limitations of the study May need follow up PCP/cardiology as outpatient DVT Px: Heparin SQ Code Status Full Code Disposition: Plan to discharge home today Subjective Patient is seen and examined at bedside Had headache earlier today which improved with Tylenol Constipation and dysuria resolved Denies any chest pain, shortness of breath, dizziness, nausea, vomiting Offers no other complaints Review of Systems Review of Systems: All systems reviewed & are unremarkable except as noted in HPI & below Physical Exam Physical Exam: Physical Exam: Vitals signs as noted above General Appearance:Moderately built and nourished, no apparent distress Head: normocephalic, Atraumatic Eyes: normal inspection, EOMI Neck: supple, Trachea midline Respiratory/Chest: Normal breath sounds, CTA Cardiovascular: S1, S2, No murmur Abdomen/GI:Soft, Non tender, Bowel sounds present Extremities/Musculoskelatal:normal inspection, no edema Neurologic/Psych:AAOX3, grossly no focal neurological deficits Skin: normal color, warm Results & Data Vital Signs (Past 12 Hours) Vital Signs Temp Pulse Resp BP Pulse Ox 01/23/19 07:03 37.2 C 68 18 143/64 H 95 Laboratory Results Short CBC 08/29/19 Range/Units 06:27 WBC 9.07 (4.8-10.8) K/uL Hgb 12.4 L (14.0-18.0) g/dL Hct 36.4 L (42-52) % Plt Count (130-400) K/uL BMP 01/23/19 06:27 Sodium 143 Potassium 4.0 Chloride 112 H Carbon Dioxide 26 BUN 8 Creatinine 0.65 Glucose 107 H Calcium 8.5
--- NOTE | 2019-01-23 13:49 | Discharge Summary ---
Date of Service January 23, 2019 Admission HPI Per Admitting Provider CHIEF COMPLAINT: Abdominal pain, flank pain and fever. HISTORY OF PRESENT ILLNESS: This is a 63-year-old male with no significant past medical history except for having UTI about 25 years ago, not on any medications, presents with ongoing fever, abdominal discomfort and flank pain and burning micturition going for last 3 days. Denies any hematuria. He was constipated a couple of days ago, but that got relieved. He did not eat anything in the last 24 hours, feeling nauseous, but currently hungry and wants to eat. Has some headaches. No blurred vision, no earache, no runny nose. Complains of some soreness in the neck, but no stiffness of the neck. No difficulty swallowing. No cough, no chest pain, no shortness of breath. No black stools or blood in the stools. No swelling in the legs, no rash. He is currently very weak and requiring help for ambulation. Prior to this episode, he was active. Admission Exam Per Admitting Provider PHYSICAL EXAMINATION: GENERAL: The patient is of moderate build, not in acute distress. VITAL SIGNS: Temperature 36.9, pulse 77, respiratory rate 19, blood pressure 91/54, oxygen 94% on room air. HEENT: No pallor, no icterus. Pupils equal, round, reactive to light. NECK: No JVD, no neck masses, no carotid bruits. CARDIOVASCULAR: S1, S2 heard, regular rate and rhythm, no murmur, no gallop. RESPIRATORY SYSTEM: Normal AP diameter. No accessory muscle use. No wheezing, no crackles. ABDOMEN: Soft, bowel sounds present. Mild diffuse discomfort. No guarding, no rigidity. No distention. CENTRAL NERVOUS SYSTEM: Cranial nerves II-XII grossly nonfocal. EXTREMITIES: No edema, no erythema. Principal Diagnosis Discharge Information Discharge Diagnosis Acute pyelonephritis Proctitis Constipation Discharge Goals Decrease discomfort,Improve disease control, Improve function Discharge Activity Limitations Resume your previous activity Discharge Data Allergies Allergy/AdvReac Type Severity Reaction Status Date / Time No Known Allergies Allergy Unverified 01/20/19 14:18 Consultations 01/20/19 19:33 ED Decision to Admit Stat 01/21/19 08:00 Consult Gastroenterology Routine Procedures Performed CT ABD: 1. No renal calculi, ureteral calculi or obstructive uropathy. 2. Prostamegaly with urinary bladder wall thickening and perivesicular stranding. Correlate with urinalysis to exclude cystitis. 3. Mild rectal wall thickening with perirectal inflammation and prominent perirectal lymph nodes. Correlate clinically to exclude proctitis. Findings also be correlated with colonoscopy if clinically warranted. 4. Enlarged subcarinal, periaortic, pericaval, iliac and axillary chain with prominent inguinal chain and mesenteric lymph nodes are nonspecific. Primary differential considerations would be a lymphoproliferative disorder or metastatic disease from unknown primary. Oncologic workup recommended. 5. Moderate right inguinal hernia contains mesenteric fat and nonobstructed loop of ileum. 6. Probable pericardial cyst, 2.8 cm. Ordered Studies 01/20/19 13:06 CT abd pelvis IV con only Stat Hospital Course (1) Acute pyelonephritis: CT ABD:No renal calculi, ureteral calculi or obstructive uropathy. Prostamegaly with urinary bladder wall thickening and perivesicular stranding. Correlate with urinalysis to exclude cystitis. Mild rectal wall thickening with perirectal inflammation and prominent perirectal lymph nodes. Correlate clinically to exclude proctitis. Findings also be correlated with colonoscopy if clinically warranted. Enlarged subcarinal, periaortic, pericaval, iliac and axillary chain with prominent inguinal chain and mesenteric lymph nodes are nonspecific. Primary differential considerations would be a lymphoproliferative disorder or metastatic disease from unknown primary. Oncologic workup recommended. Moderate right inguinal hernia contains mesenteric fat and nonobstructed loop of ileum. Probable pericardial cyst, 2.8 cm. Urine Cx:E.coli--Ly sensitive Continue Ceftriaxone DAY #3 Plan to transition to PO Abx upon discharge Constipation Proctitis Perirectal lymphadenopathy Continue bowel regimen Appreciate GI input No rectal pain or bleeding Plan for outpatient colonoscopy upon discharge May need oncology evaluation and repeat imaging as outpatient upon discharge once acute infection is treated Continue bowel regimen for constipation ?? Pericardial cyst Incidental finding on CT scan Echo--- pericardial cyst not visualized but not excluded consistent with limitations of the study May need follow up PCP/cardiology as outpatient DVT Px: Heparin SQ Code Status Full Code Disposition: Plan to discharge home today Total Time Total Time Spent Total Time Spent (In Minutes): 37 minutes Total Time Includes: Examination of the Patient, Discharge Planning, Medication Reconciliation and Other Discharge Plan Discharge Items Patient Disposition: Home - Self-Care Reason For Visit: FLANK PAIN,FEVER Discharge Diagnosis: Acute pyelonephritis Proctitis Constipation Discharge Goals: Decrease discomfort, Improve disease control and Improve function Activity: Resume your previous activity Exercise/Sports: Gradually increase as tolerated Non-emergency contact: Primary Care Provider and [employer] Call non-emergency contact if: you have any medication questions, your symptoms worsen, your pain is not controlled, your pain is worsening, your pain is unusual for you, your pain is concerning for you and you have a fever Follow-up/Referrals: Norbert Stone MD [Primary Care Provider] - Diet: Heart Healthy Addtl Provider Instructions: Follow-up with your primary care physician Dr. Stone on January 28, 2019 at 12:55 PM Follow-up with your monogram and letter paster Dr. Jamison for colonoscopy as outpatient Consider following up with your oncologist for further work-up of lymphadenopathy noted on CT scan Complete antibiotic course as prescribed Seek immediate medical attention if your symptoms reoccur or worsen Prescriptions: New docusate sodium 100 mg Capsule 100 mg PO BID PRN (Reason: constipation) Qty: 14 RF: 0 polyethylene glycol 3350 [Miralax] 17 gram Powder In Packet 17 g PO DAILY PRN (Reason: constipation) 7 Days Qty: 7 RF: 0 cefuroxime axetil 500 mg tablet 500 mg PO BID Qty: 10 RF: 0 Continued acetaminophen [Tylenol Extra Strength] 500 mg Tablet 500 mg PO Q6H PRN (Reason: Pain) RF: 0 ibuprofen 200 mg Tablet 200 mg PO Q6H PRN (Reason: Pain) RF: 0 ondansetron 4 mg Film 4 mg PO Q6H PRN (Reason: Nausea And Vomiting) RF: 0 Discontinued ondansetron 4 mg Tablet,Disintegrating 4 mg PO ONCE RF: 0 Stand-Alone Forms: [facility], Work/School Release (Inpt) Viki/Other Patient Handouts: Pyelonephritis Dc Discharge Orders: Discharge Order (Routine); Ordered 01/23/19 Ordered By: Amilcar Sterling Admission Data Admit Date/Time: 01/20/19 20:12 Attending Provider: Amilcar Sterling Admit Provider: Artur Feldman Primary Care Provider: Norbert Stone Other Providers: Artur Feldman ; Jose Jamison ; Jason Barksdale Service: Medical Other Interventions: Discharge Summary Assessment (RN) Last Done: 01/23/19 13:57 Pending Studies at Discharge: No DC Date/Time DO NOT enter until pt leaves facility: 01/23/19 15:11
[2019-01-23] MEDS: cefTRIAXone SODIUM 2,000 MG in DEXTROSE 5% 50 ML IV SCH (13:52)
== END 2019-01-23 15:11 | disposition home or self-care (01) | DRG 690 ==
LOC: ED 12:32 → 3W 20:12 → SUATTDRO 20:12 → 3W 21:44

== ENCOUNTER 2021-04-30 12:51 | Inpatient (IN) ==
[2021-04-30] MEDS ORDERED: ONDANSETRON INJ 2 MG/ML 2 ML VIAL IV STA (13:10)
[2021-04-30] MEDS ORDERED: SODIUM CHLORIDE 0.9% 1000ML 500 ML IV ONE (13:25)
--- NOTE | 2021-04-30 13:47 | XRay Report ---
XR chest 1V portable HISTORY: weakness COMPARISON: Chest 08/26/2015 FINDINGS: Bibasilar airspace opacities. There are low lung volumes. No pneumothorax. No pleural effus ions. The heart is mildly enlarged. IMPRESSION: Bibasilar airspace opacities. This likely represents a pneumonia and could be due to a viral process or aspiration. ACT 112: Negative or not required by law. Electronically signed by: Med Judge M.D. 04/30/2021 1:45 PM
[2021-04-30 14:14] LABS: Prothrombin Time 10.6 Seconds (9.0-12.0)
[2021-04-30 14:17] LABS: Alanine Aminotransferase 25 (12-78); Aspartate Aminotransferase 32 U/L (15-37); BUN Creatinine Ratio 26.8 (10-20); Blood Urea Nitrogen 22 mg/dl (7-18); Calcium 8.6 mg/dl (8.5-10.1); Carbon Dioxide 25 mmol/L (21-32); Chloride 104 mmol/L (98-107); Est GFR (African American) 108.7 ml/min; Est GFR (Non-African American) 93.7 ml/min; Glucose 126 mg/dl (70-99); Lipase 131 U/L (73-393); Magnesium 2.4 mg/dl (1.8-2.4); Mean Corpuscular Hgb Conc 33.2 g/dL (32-36); Potassium 4.1 mmol/L (3.5-5.1); Sodium 135 mmol/L (136-145)
[2021-04-30 14:18] LABS: Hematocrit (blood only) 39.1 % (42-52); Mean Corpuscular Hemoglobin 31.4 pg (25-34); Mean Corpuscular Volume 94.4 fL (80-100); RDW Coefficient of Variation 14.3 % (11.5-14.5); RDW Standard Deviation 48.7 fL (36.4-46.3); Red Blood Count 4.14 M/uL (4.7-6.1); White Blood Count 38.48 K/uL (4.8-10.8)
[2021-04-30 14:25] LABS: Albumin Globulin Ratio 0.8 (0.9-2); Alkaline Phosphatase 56 U/L (45-117); Bilirubin,Total 0.7 mg/dl (0.2-1); C Reactive Protein 5.77 mg/dl (0-0.29); Creatine Kinase 65 U/L (39-308); Troponin I < 0.015 ng/ml (0-0.045)
[2021-04-30 14:37] LABS: Basophils # (auto) 0.04 K/uL (0-0.2); Basophils % (auto) 0.1 %; Immature Granulocytes # (auto) 0.09 K/uL (0.00-0.02); Immature Granulocytes % (auto) 0.2 %; Lymphocytes # (auto) 32.19 K/uL (1.2-3.4); Lymphocytes % (auto) 83.7 %; Mean Platelet Volume 10.2 fL (7.4-10.4); Monocytes # (auto) 0.07 K/uL (0.11-0.59); Monocytes % (auto) 0.2 %; Neutrophils # (auto) 6.09 K/uL (1.4-6.5); Neutrophils % (auto) 15.8 %; Platelet Count 131 K/uL (130-400); Platelet Estimate Normal (Normal); Smudge Cells Present
--- NOTE | 2021-04-30 14:59 | Emergency Department Note ---
Impression & Plan 2019 novel coronavirus-infected pneumonia (NCIP), Hypoxia, Nausea & vomiting, B-cell lymphoma ED Provider Note Provider: Jermaine Bradley MD DATE OF SERVICE: 04/30/2021 CHIEF COMPLAINT: Weakness, shortness of breath, nausea vomiting HISTORY OF PRESENT ILLNESS: Patient is a 65-year-old gentleman history of enlarged neck lymph node presenting today with reporting feeling increasingly weak and short of breath with decreased food and liquid intake with nausea and vomiting over the past several weeks but particularly over the last 2 to 3 days. Patient has not vaccinated for Covid. recently tested positive at home test with Covid as did the patient. Patient was seen by his outpatient doctor via a telemedicine visit and given doxycycline for possible sinus infection but has previously completed this. Patient reports significant pain in the epigastrium to chest region prickly with coughing. States significant dry cough reported. Patient did fall several weeks ago but no recent trauma no syncope. Patient feels generally weak. Patient does not have a significant history of smoking or oxygen usage. Patient reports that may have enlarged lymph node in the left neck and some testing on but have not followed up further about this. Became sick the weekend before . Patient did try dose of 2 of prednisone from his several days ago and did not seem to help only made him have insomnia. REVIEW OF SYSTEMS: A total of 10 review of systems was obtained and negative except as stated above in the HPI. PAST MEDICAL HISTORY: As noted above MEDICATIONS: No significant home prescriptions at this time SOCIAL HISTORY: Non-smoker, lives at home with PHYSICAL EXAM: GENERAL: alert and oriented in no acute distress on stretcher however fatigued appearing Head: normocephalic and atraumatic EYES: No injection, discharge or icterus. NECK: Trachea midline. ENT: Mucous membranes pink and moist. LUNGS: Airway patent. No retractions but some tachypnea noted Breath sounds clear HEART: Regular rate and rhythm. No chest wall tenderness ABDOMEN: Soft and non-tender, without guarding or rebound. SKIN: Acyanotic, warm, dry, without rashes EXTREMITIES: Without swelling, tenderness or deformity NEUROLOGICAL: No focal deficits. No aphasia. No facial droop or slurred speech. EK bpm normal sinus rhythm. No PVC or PAC. No acute ST segment elevation or depression. QTC 423. CONTINUOUS CARDIAC MONITORING: was ordered and showed a heart rate of 70s to 90s bpm in normal sinus rhythm Patient's laboratory studies and imaging reviewed. Differential includes Infection, gastrointestinal, dehydration, metabolic abnormality, hypo/hyperglycemia, electrolyte disturbance, anemia, hypoxia, cardiac sources, intracerebral event, toxicologic, neurologic, as well as other pathologies. IMPRESSION/MEDICAL DECISION MAKING: Patient recent Covid exposure and positive home test. Short of breath. Reportedly is not had significant outpatient work-up for diagnosed B-cell lymphoma. White blood cell count likely from that. Procalcitonin not elevated. X-ray consistent with likely viral Covid changes. Needing oxygen supplementation for hypoxia here. Troponin is undetectable and EKGs not impressive for ischemic changes. No significant renal dysfunction or electrolyte abnormality noted. CRP mildly elevated. Lipase not elevated. Covid test and flu test completed positive for Covid only. Given some steroids here given the hypoxia with Covid. Given some Tylenol today. CT the chest completed to exclude PE and per radiology without significant acute PE. Given his hypoxia and generalized weakness discussed with the patient and . Hospitalist be contacted for further inpatient care. Discussed the patient and his at bedside the biopsy findings of the lymph node from the summer and lymphadenopathy on the images and the need for further follow-up of this as it likely represents lymphoma but the elevated white blood cell count. They acknowledged this. Hospitalist is aware as well. Given some Reglan for additional nausea control. DIAGNOSIS: COVID-19 pneumonia, hypoxia, nausea DISPOSITION: Hospitalist will evaluate for further care at hospital Past Med/Surg History Medical History (Updated 04/30/21 @ 16:03 by Jermaine Bradley M.D.) Kidney infection Fall 2018 Surgical History H/O right inguinal hernia repair History of appendectomy History of colonoscopy Family History Father Blood transfusion reaction Prostate cancer Brother Brain tumor, Onset Age: 66 Mother Heart disease Other No family history of adverse response to anesthesia No family history of bleeding disorder No pertinent family history in first degree relatives Denies family history of Ovarian cancer Myocardial infarction Breast cancer Colorectal cancer Social History Smoking Status: Never smoker Second Hand Exposure: No; Hx Alcohol Use: No Hx Substance Use: No Preferred Language: French Communication Ability: Effective Group Managing Director Required: No Beliefs That Will Affect Care: None marital status: Single Current Living Situation: Significant Other current occupational status: employed and retired 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 Feels Safe at Home: Yes caffeine: Yes (Coffee ) Dental Care, Regularly: Yes Physical Activity Frequency: Daily Physical Activity Frequency Comment: Walking, daily housework/cleaning Seatbelt Use: always Sunscreen Use: No Assistive Devices: Denture - Upper and Glasses Allergies Allergies Allergy/AdvReac Type Severity Reaction Status Date / Time No Known Drug Allergies Allergy Verified 04/30/21 14:47 Home Meds Home Medications Medication Instructions Recorded Confirmed ibuprofen 200 mg tablet 800 mg PO Q6H PRN 01/20/19 04/30/21 Previous Rx's Medication Instructions Recorded doxycycline hyclate 100 mg tablet 100 mg PO BID #20 tab 04/20/21 Results & Data (ED) Vital Signs Vital Signs - 24 hr 04/30/21 12:51 04/30/21 12:58 04/30/21 13:11 Temperature 37.5 C Temperature Source Oral Pulse Rate 91 H 73 Pulse Rate [Finger] 80 Respiratory Rate 24 18 20 Blood Pressure 120/73 Blood Pressure [Right Arm] 128/80 Blood Pressure Mean 88 Blood Pressure Mean [Right Arm] 96 Pulse Oximetry 96 87 L 97 Oxygen Delivery Method Nasal Cannula Room Air Nasal Cannula Oxygen Flow Rate 4 4 Sepsis Recent Fever Within 48 Hours No Sepsis New/Unexplained Change in Mental Status No Sepsis Action Taken by Nursing No Action Required Laboratory Data Result diagrams: 04/30/21 13:38 04/30/21 13:38 Lab Results 04/30/21 04/30/21 04/30/21 Range/Units 13:38 13:38 13:38 WBC 38.48 H* (4.8-10.8) K/uL RBC 4.14 L (4.7-6.1) M/uL Hgb 13.0 L (14.0-18.0) g/dL Hct 39.1 L (42-52) % MCV 94.4 (80-100) fL MCH 31.4 (25-34) pg MCHC 33.2 (32-36) g/dL RDW Std Deviation 48.7 H (36.4-46.3) fL RDW Coeff of Ho 14.3 (11.5-14.5) % Plt Count 131 (130-400) K/uL MPV 10.2 (7.4-10.4) fL Immature Gran % (Auto) 0.2 % Neut % (Auto) 15.8 % Lymph % (Auto) 83.7 % [place] % (Auto) 0.2 % Eos % (Auto) 0.0 % Baso % (Auto) 0.1 % Neut # (Auto) 6.09 (1.4-6.5) K/uL Lymph # (Auto) 32.19 H (1.2-3.4) K/uL [place] # (Auto) 0.07 L (0.11-0.59) K/uL Eos # (Auto) 0.00 (0-0.5) K/uL Baso # (Auto) 0.04 (0-0.2) K/uL Immature Gran # (Auto) 0.09 H (0.00-0.02) K/uL Smudge Cells Present Platelet Estimate Normal (Normal) Plt Count ,Citrate PT 10.6 (9.0-12.0) Seconds INR 1.0 (0.9-1.1) Sodium 135 L (136-145) mmol/L Potassium 4.1 (3.5-5.1) mmol/L Chloride 104 (98-107) mmol/L Carbon Dioxide 25 (21-32) mmol/L Anion Gap 6.0 (3-11) BUN 22 H (7-18) mg/dl Creatinine 0.80 (0.6-1.4) mg/dl Est Cr Clr Drug Dosing 101.0 ml/min Est GFR ( Amer) 108.7 ml/min Est GFR (Non-Af Amer) 93.7 ml/min BUN/Creatinine Ratio 26.8 H (10-20) Glucose 126 H (70-99) mg/dl Lactate (0.4-2.0) mmol/L Calcium 8.6 (8.5-10.1) mg/dl Magnesium 2.4 (1.8-2.4) mg/dl Total Bilirubin 0.7 (0.2-1) mg/dl AST 32 (15-37) U/L ALT 25 (12-78) Alkaline Phosphatase 56 (45-117) U/L Total Creatine Kinase 65 (39-308) U/L Troponin I < 0.015 (0-0.045) ng/ml C-Reactive Protein 5.77 H (0-0.29) mg/dl Total Protein 7.0 (6.4-8.2) gm/dl Albumin 3.0 L (3.4-5.0) gm/dl Globulin 4.0 (2.5-4.0) gm/dl Albumin/Globulin Ratio 0.8 L (0.9-2) Lipase 131 (73-393) U/L Procalcitonin (0-0.5) ng/ml TSH 1.440 (0.300-4.500) uIu/ml SARS-CoV-2 (PCR) (Negative) Influenza Type A (PCR) (Neg) Influenza Type B (PCR) (Neg) RSV (RT-PCR) (Neg) 04/30/21 04/30/21 04/30/21 Range/Units 13:38 14:15 14:22 WBC (4.8-10.8) K/uL RBC (4.7-6.1) M/uL Hgb (14.0-18.0) g/dL Hct (42-52) % MCV (80-100) fL MCH (25-34) pg MCHC (32-36) g/dL RDW Std Deviation (36.4-46.3) fL RDW Coeff of Ho (11.5-14.5) % Plt Count (130-400) K/uL MPV (7.4-10.4) fL Immature Gran % (Auto) % Neut % (Auto) % Lymph % (Auto) % [place] % (Auto) % Eos % (Auto) % Baso % (Auto) % Neut # (Auto) (1.4-6.5) K/uL Lymph # (Auto) (1.2-3.4) K/uL [place] # (Auto) (0.11-0.59) K/uL Eos # (Auto) (0-0.5) K/uL Baso # (Auto) (0-0.2) K/uL Immature Gran # (Auto) (0.00-0.02) K/uL Smudge Cells Platelet Estimate (Normal) Plt Count ,Citrate PT (9.0-12.0) Seconds INR (0.9-1.1) Sodium (136-145) mmol/L Potassium (3.5-5.1) mmol/L Chloride (98-107) mmol/L Carbon Dioxide (21-32) mmol/L Anion Gap (3-11) BUN (7-18) mg/dl Creatinine (0.6-1.4) mg/dl Est Cr Clr Drug Dosing ml/min Est GFR ( Amer) ml/min Est GFR (Non-Af Amer) ml/min BUN/Creatinine Ratio (10-20) Glucose (70-99) mg/dl Lactate 1.0 (0.4-2.0) mmol/L Calcium (8.5-10.1) mg/dl Magnesium (1.8-2.4) mg/dl Total Bilirubin (0.2-1) mg/dl AST (15-37) U/L ALT (12-78) Alkaline Phosphatase (45-117) U/L Total Creatine Kinase (39-308) U/L Troponin I (0-0.045) ng/ml C-Reactive Protein (0-0.29) mg/dl Total Protein (6.4-8.2) gm/dl Albumin (3.4-5.0) gm/dl Globulin (2.5-4.0) gm/dl Albumin/Globulin Ratio (0.9-2) Lipase (73-393) U/L Procalcitonin < 0.05 (0-0.5) ng/ml TSH (0.300-4.500) uIu/ml SARS-CoV-2 (PCR) POSITIVE A* (Negative) Influenza Type A (PCR) Negative (Neg) Influenza Type B (PCR) Negative (Neg) RSV (RT-PCR) Negative (Neg) 04/30/21 Range/Units 14:22 WBC (4.8-10.8) K/uL RBC (4.7-6.1) M/uL Hgb (14.0-18.0) g/dL Hct (42-52) % MCV (80-100) fL MCH (25-34) pg MCHC (32-36) g/dL RDW Std Deviation (36.4-46.3) fL RDW Coeff of Ho (11.5-14.5) % Plt Count (130-400) K/uL MPV (7.4-10.4) fL Immature Gran % (Auto) % Neut % (Auto) % Lymph % (Auto) % [place] % (Auto) % Eos % (Auto) % Baso % (Auto) % Neut # (Auto) (1.4-6.5) K/uL Lymph # (Auto) (1.2-3.4) K/uL [place] # (Auto) (0.11-0.59) K/uL Eos # (Auto) (0-0.5) K/uL Baso # (Auto) (0-0.2) K/uL Immature Gran # (Auto) (0.00-0.02) K/uL Smudge Cells Platelet Estimate (Normal) Plt Count ,Citrate Cancelled PT (9.0-12.0) Seconds INR (0.9-1.1) Sodium (136-145) mmol/L Potassium (3.5-5.1) mmol/L Chloride (98-107) mmol/L Carbon Dioxide (21-32) mmol/L Anion Gap (3-11) BUN (7-18) mg/dl Creatinine (0.6-1.4) mg/dl Est Cr Clr Drug Dosing ml/min Est GFR ( Amer) ml/min Est GFR (Non-Af Amer) ml/min BUN/Creatinine Ratio (10-20) Glucose (70-99) mg/dl Lactate (0.4-2.0) mmol/L Calcium (8.5-10.1) mg/dl Magnesium (1.8-2.4) mg/dl Total Bilirubin (0.2-1) mg/dl AST (15-37) U/L ALT (12-78) Alkaline Phosphatase (45-117) U/L Total Creatine Kinase (39-308) U/L Troponin I (0-0.045) ng/ml C-Reactive Protein (0-0.29) mg/dl Total Protein (6.4-8.2) gm/dl Albumin (3.4-5.0) gm/dl Globulin (2.5-4.0) gm/dl Albumin/Globulin Ratio (0.9-2) Lipase (73-393) U/L Procalcitonin (0-0.5) ng/ml TSH (0.300-4.500) uIu/ml SARS-CoV-2 (PCR) (Negative) Influenza Type A (PCR) (Neg) Influenza Type B (PCR) (Neg) RSV (RT-PCR) (Neg) Administered Medications Discontinued Medications Acetaminophen (Acetaminophen 500 Mg Tab) 1,000 mg PO NOW STA Stop: 04/30/21 15:37 Last Admin: 04/30/21 15:47 Dose: 1,000 mg Documented by: [id number] Benzonatate (Benzonatate 100 Mg Capsule) 100 mg PO NOW ONE Stop: 04/30/21 15:37 Last Admin: 04/30/21 15:46 Dose: 100 mg Documented by: [id number] Dexamethasone Sodium Phosphate (DexamethasonePf 10 Mg/Ml Vial) 6 mg IV NOW ONE Stop: 04/30/21 15:41 Last Admin: 04/30/21 15:47 Dose: 6 mg Documented by: [id number] Sodium Chloride (Nss 1000ml) 500 mls @ 999 mls/hr IV .Q31M ONE Stop: 04/30/21 13:55 Last Infusion: 04/30/21 15:00 Dose: 0 mls/hr Documented by: [id number] Admin: 04/30/21 14:26 Dose: 999 mls/hr Documented by: [id number] Ioversol (Optiray 320 125ml) 119 ml IV ONCE ONE Stop: 04/30/21 15:09 Last Admin: 04/30/21 15:09 Dose: 1 ml Documented by: [id number] Metoclopramide HCl (Metoclopramide Hcl Inj 5 Mg/Ml 2 Ml Vial) 5 mg IV ONE ONE Stop: 04/30/21 15:37 Last Admin: 04/30/21 15:47 Dose: 5 mg Documented by: [id number] Ondansetron HCl (Ondansetron Inj 2 Mg/Ml 2 Ml Vial) 4 mg IV NOW STA Stop: 04/30/21 13:11 Last Admin: 04/30/21 14:26 Dose: 4 mg Documented by: [id number] Imaging Data Radiologist's Impression: Chest CTA 04/30/21 13:10 CHEST CTA for PULMONARY ARTERIES CT DOSE: 431.49 mGy.cm HISTORY: Short of breath. Covid. Hypoxia. TECHNIQUE: Multiaxial CT images of the chest were performed following the intravenous administration of contrast to evaluate the pulmonary arteries. Maximal intensity projection images were also obtained. A dose lowering techn ique was utilized adhering to the principles of ALARA. COMPARISON STUDY: None. FINDINGS: No fractures within the visualized osseous structures. The visualized liver is unremarkable. The spleen appears mildly enlarged. This may be reactive. Normal thyroid gland. There is mediastinal, bilateral hilar, axillary, and supraclavicular lymphadenopathy. A dominant right paratracheal lymph node measures 2.5 x 1.9 cm. Normal esophagus. The heart is borderline enlarged. There are few prominent anterior diaphragmatic lymph nodes. No pleural or pericardial effusions. Normal caliber thoracic aorta with no evidence for dissection. No filling defects within the pulmonary arteries to suggest a pulmonary embolus. No pneumothorax. Multifocal patchy groundglass and consolidative airspace opacities seen throughout the lungs. This is consistent with a viral pneumonia. This is most pronounced within the left lower lobe. IMPRESSION: 1. No evidence for pulmonary embolus. 2. Multifocal patchy bilateral airspace opacities consistent with a viral pneumonia. 3. Mediastinal, hilar, axillary, and supraclavicular lymphadenopathy. There is also mild splenomegaly. Although potentially reactive to the viral process, these findings are concerning for a lymphoproliferative disorder. Follow-up oncology consultation can be performed once the patient's pneumonia has resolved. ACT 112: Positive. There are findings on this exam that require communication between the performing entity and the patient following Patient Test Result Information Act ([place] Act 112) guidelines. Electronically signed by: Med Judge M.D. 04/30/2021 3:23 PM Chest X-Ray 04/30/21 13:11 XR chest 1V portable HISTORY: weakness COMPARISON: Chest 08/26/2015 FINDINGS: Bibasilar airspace opacities. There are low lung volumes. No pneumothorax. No pleural effusions. The heart is mildly enlarged. IMPRESSION: Bibasilar airspace opacities. This likely represents a pneumonia and could be due to a viral process or aspiration. ACT 112: Negative or not required by law. Electronically signed by: Med Judge M.D. 04/30/2021 1:45 PM Discharge Plan Visit Data Chief Complaint: Vomiting Stated Complaint: VOMITING ED Provider: Jermaine Bradley Discharge Problem: 2019 novel coronavirus-infected pneumonia (NCIP), Hypoxia, Nausea & vomiting, B-cell lymphoma Patient Disposition: Being Evaluated by Hospitalist Forms Stand Alone Forms: My [facility] Prescriptions Prescriptions: No Action doxycycline hyclate 100 mg tablet 100 mg PO BID Qty: 20 RF: 0 ibuprofen 200 mg Tablet 800 mg PO Q6H PRN (Reason: Pain) RF: 0 Referrals Referrals: Khang Bernabe DO [Primary Care Provider] -
[2021-04-30] MEDS ORDERED: OPTIRAY 320 125ml IV ONE (15:08)
[2021-04-30 15:14] LABS: Influenza A virus by PCR Negative (Neg); Influenza B virus by PCR Negative (Neg); RSV by PCR Negative (Neg)
--- NOTE | 2021-04-30 15:25 | CT Scan Report ---
CHEST CTA for PULMONARY ARTERIES CT DOSE: 431.49 mGy.cm HISTORY: Short of breath. Covid. Hypoxia. TECHNIQUE: Multiaxial CT images of the chest were performed following the intravenous administration of contrast to evaluate the pulmonary arteries. Maximal intensity projection images were also obtaine d. A dose lowering technique was utilized adhering to the principles of ALARA. COMPARISON STUDY: None. FINDINGS: No fractures within the visualized osseous structures. The visualized liver is unremarkable . The spleen appears mildly enlarged. This may be reactive. Normal thyroid gland. There is mediastina l, bilateral hilar, axillary, and supraclavicular lymphadenopathy. A dominant right paratracheal lymp h node measures 2.5 x 1.9 cm. Normal esophagus. The heart is borderline enlarged. There are few promi nent anterior diaphragmatic lymph nodes. No pleural or pericardial effusions. Normal caliber thoracic aorta with no evidence for dissection. No filling defects within the pulmonary arteries to suggest a pulmonary embolus. No pneumothorax. Multifocal patchy groundglass and consolidative airspace opaciti es seen throughout the lungs. This is consistent with a viral pneumonia. This is most pronounced with in the left lower lobe. IMPRESSION: 1. No evidence for pulmonary embolus. 2. Multifocal patchy bilateral airspace opacities consistent with a viral pneumonia. 3. Mediastinal, hilar, axillary, and supraclavicular lymphadenopathy. There is also mild splenomegaly . Although potentially reactive to the viral process, these findings are concerning for a lymphoproli ferative disorder. Follow-up oncology consultation can be performed once the patient's pneumonia has resolved. ACT 112: Positive. There are findings on this exam that require communication between the performing entity and the patient following Patient Test Result Information Act ([place] Act 112) guidelines. Electronically signed by: Med Judge M.D. 04/30/2021 3:23 PM
--- NOTE | 2021-04-30 15:34 | History & Physical Report ---
Date of Service April 30, 2021 Assessment & Plan (1) 2019 novel coronavirus-infected pneumonia (NCIP): Plan: Unvaccinated Dexamethasone 6mg IV given in the ER, continue 6mg IV daily Outside treatment window for remdesivir. Encourage pronation (2) Hypoxia: Plan: Aim O2 sats > 90% (3) B-cell lymphoma: Plan: Discussed suspected CLL diagnosis with patient. Lost to follow up with hematology. Will contact hematology regarding if any changes to usual COVID-19 treatments. No apparent symptoms other than lymphadenopathy prior to COVID-19 diagnosis. Plan: VTE prophylaxis - Lovenox 40mg SQ daily Diet - regular Disposition - admit COVID isolation on med/surg Admission and Anticipated Discharge Date Admission Date: April 30, 2021 History of Present Illness Chief Complaint: COVID-19 symptoms Primary Care Provider: Khang Bernabe DO Domenic Reardon is a 65 year old male who presents to the ER with COVID-19 symptoms. He is unvaccinated. He reports being unwell for two weeks. Initially with cold symptoms of nasal congestion and sinus pain. Was diagnosed with sinusitis on 04/20 and was treated with doxycycline at that time. He refused the COVID-19 test ordered by the PCP although reports taking a home test that day which was positive. He reports symptoms of fever, chills, nausea, vomiting, coughing, fatigue, mild shortness of breath, diarrhea, loss of taste and smell, poor appetite. Main reason he comes to the ER today is nausea and coughing. In the ER he was hypoxic requiring 4LPm O2 to maintain saturations > 90%. He was referred to medicine for admission and ongoing management of COVID-19 pneumonia. Of note, he was also noted to have a very elevated WBC (lymphocyte) count. He had a biopsy of cervical lymph nodes in November which was concerning for low grade CLL. He denies any symptoms of this prior to COVID-19. They called the hematology office for an appointment but due to no availability at the time of calling they never received a call back and were lost to follow up. Allergies Allergy/AdvReac Type Severity Reaction Status Date / Time No Known Drug Allergies Allergy Verified 04/30/21 14:47 Home Medications Medication Instructions Recorded Confirmed Type ibuprofen 200 mg tablet 800 mg PO Q6H PRN 08/26/19 12/04/21 History doxycycline hyclate 100 mg tablet 100 mg PO BID #20 tab 04/20/21 04/30/21 Rx Past Med/Surg History Medical History (Updated 04/30/21 @ 16:03 by Jermaine Bradley M.D.) Kidney infection Fall 2018 Surgical History H/O right inguinal hernia repair History of appendectomy History of colonoscopy Family History Father Blood transfusion reaction Prostate cancer Brother Brain tumor, Onset Age: 66 Mother Heart disease Other No family history of adverse response to anesthesia No family history of bleeding disorder No pertinent family history in first degree relatives Denies family history of Ovarian cancer Myocardial infarction Breast cancer Colorectal cancer Social History Smoking Status: Never smoker Second Hand Exposure: No; Hx Alcohol Use: No Hx Substance Use: No Preferred Language: Syriac Communication Ability: Effective 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: No Beliefs That Will Affect Care: None marital status: Single Current Living Situation: Significant Other current occupational status: employed and retired 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 Feels Safe at Home: Yes caffeine: Yes (Coffee ) Dental Care, Regularly: Yes Physical Activity Frequency: Daily Physical Activity Frequency Comment: Walking, daily housework/cleaning Seatbelt Use: always Sunscreen Use: No Assistive Devices: Denture - Upper and Glasses Review of Systems Review of Systems: All systems reviewed & are unremarkable except as noted in HPI & below Physical Exam Constitutional: WD/WN, vitals as above Eyes: PERRL, conjunctivae normal, anicteric sclerae ENMT: external ear and nose normal, oropharynx normal Neck: trachea midline, no thyromegaly Respiratory: normal respiratory effort; no respiratory distress Auscultation: + diminished lung sounds (bibasal) and + crackles (bibasal, fine); no rales and no wheezes Cardiovascular: RRR, no murmur, no edema Gastrointestinal (Abdomen): normal bowel sounds, soft, nontender, no hepatosplenomegaly Musculoskeletal: no cyanosis or clubbing, extremities motor strength 5/5 Skin: no rashes, warm and dry Neurologic: moves all extremities and awake; not confused Psychiatric: A+Ox3, euthymic affect Results & Data Results & Data ([facility]) Vital Signs (Past 12 Hours) Vital Signs Temp Pulse Pulse Resp BP BP Pulse Ox 04/30/21 13:11 73 20 97 04/30/21 12:58 37.5 C 91 H 18 120/73 87 L 04/30/21 12:51 80 24 128/80 96 Laboratory Results Abnormal lab results 04/30/21 04/30/21 Range/Units 13:38 13:38 WBC 38.48 H* (4.8-10.8) K/uL RBC 4.14 L (4.7-6.1) M/uL Hgb 13.0 L (14.0-18.0) g/dL Hct 39.1 L (42-52) % RDW Std Deviation 48.7 H (36.4-46.3) fL Lymph # (Auto) 32.19 H (1.2-3.4) K/uL [place] # (Auto) 0.07 L (0.11-0.59) K/uL Immature Gran # (Auto) 0.09 H (0.00-0.02) K/uL Sodium 135 L (136-145) mmol/L BUN 22 H (7-18) mg/dl BUN/Creatinine Ratio 26.8 H (10-20) Glucose 126 H (70-99) mg/dl C-Reactive Protein 5.77 H (0-0.29) mg/dl Albumin 3.0 L (3.4-5.0) gm/dl Albumin/Globulin Ratio 0.8 L (0.9-2) Diagnostic Findings XR chest 1V portable HISTORY: weakness COMPARISON: Chest 08/26/2015 FINDINGS: Bibasilar airspace opacities. There are low lung volumes. No pneumothorax. No pleural effusions. The heart is mildly enlarged. IMPRESSION: Bibasilar airspace opacities. This likely represents a pneumonia and could be due to a viral process or aspiration. CHEST CTA for PULMONARY ARTERIES CT DOSE: 431.49 mGy.cm HISTORY: Short of breath. Covid. Hypoxia. TECHNIQUE: Multiaxial CT images of the chest were performed following the intravenous administration of contrast to evaluate the pulmonary arteries. Maximal intensity projection images were also obtained. A dose lowering technique was utilized adhering to the principles of ALARA. COMPARISON STUDY: None. FINDINGS: No fractures within the visualized osseous structures. The visualized liver is unremarkable. The spleen appears mildly enlarged. This may be reactive. Normal thyroid gland. There is mediastinal, bilateral hilar, axillary, and supraclavicular lymphadenopathy. A dominant right paratracheal lymph node measures 2.5 x 1.9 cm. Normal esophagus. The heart is borderline enlarged. There are few prominent anterior diaphragmatic lymph nodes. No pleural or pericardial effusions. Normal caliber thoracic aorta with no evidence for dissection. No filling defects within the pulmonary arteries to suggest a pulmonary embolus. No pneumothorax. Multifocal patchy groundglass and consolidative airspace opacities seen throughout the lungs. This is consistent with a viral pneumonia. This is most pronounced within the left lower lobe. IMPRESSION: 1. No evidence for pulmonary embolus. 2. Multifocal patchy bilateral airspace opacities consistent with a viral pneumonia. 3. Mediastinal, hilar, axillary, and supraclavicular lymphadenopathy. There is also mild splenomegaly. Although potentially reactive to the viral process, these findings are concerning for a lymphoproliferative disorder. Follow-up oncology consultation can be performed once the patient's pneumonia has resolved. Medications Administered ER Medications Given: Ondansetron 4mg IV NSS 500ml bolus Acetaminophen 1000mg PO Tessalon Perles 100mg PO Metoclopramide 5mg IV ECG Indication: SOB/dyspnea Rate (beats per minute): 76 Rhythm: normal sinus Findings: + other (Left ventricular hypertrophy); no acute ischemic change Comparison ECG Date: from (June 19, 2019) Change: no significant change Code Status & VTE Plan Code Status Full VTE Prophylaxis Plan VTE Prophylaxis will be ordered: Yes PG Care Time/CCT Total # of Minutes Spent Total Time Spent with Patient: Total time spent is greater than 50% in coordination of care (as documented) at patient's floor/unit and/or counseling patient: Coding Level of Care Code 89027 Initial Inpt Care Lvl 2 Diagnoses 2019 novel coronavirus-infected pneumonia (NCIP) U07.1; J12.82 Hypoxia R09.02 B-cell lymphoma C85.10
[2021-04-30] MEDS ORDERED: METOCLOPRAMIDE HCL INJ 5 MG/ML 2 ML VIAL IV ONE (15:36)
[2021-04-30] MEDS ORDERED: BENZONATATE 100 MG CAPSULE PO ONE (15:36)
[2021-04-30] MEDS ORDERED: ACETAMINOPHEN 500 MG TAB PO STA (15:36)
[2021-04-30] MEDS ORDERED: dexAMETHasone**PF** 10 MG/ML VIAL IV ONE (15:40)
[2021-04-30 17:39] LABS: Appearance Urine Clear (Clear); Bacteria Urine Automated Negative (Negative); Bilirubin Urine Negative (Negative); Blood Urine Negative (Negative); Cast Urine Automated 0 /lpf (0-5); Color Urine Yellow; Epithelial Cell Urine Auto 0-5 /lpf (0-5); Glucose Urine UA Negative (Negative); Ketones Urine 1+ (Negative); Leukocyte Esterase Urine Negative (Negative); Nitrite Urine Negative (Negative); Protein Urine Trace (Negative); RBC Urine Automated 0-4 /hpf (0-4); Specific Gravity Urine > 1.045 (1.000-1.030); Urobilinogen Urine Negative (Negative); pH Urine 5.5 (4.5-7.5)
[2021-04-30] MEDS ORDERED: POLYETHYLENE (MIRALAX) 17 GM PACK PO PRN (19:58)
[2021-04-30] MEDS ORDERED: ONDANSETRON INJ 2 MG/ML 2 ML VIAL IV PRN (19:58)
[2021-04-30] MEDS ORDERED: ALUMINUM/MAGNESIUM SUSP 30 ML UDC PO PRN (19:58)
[2021-04-30] MEDS: ENOXAPARIN INJ 40 MG/0.4 ML SYR SQ SCH (21:04)
[2021-05-01] MEDS: dexAMETHasone 6 MG in SYRINGE 0 ML IV SCH (08:37)
[2021-05-01] MEDS: ACETAMINOPHEN 325 MG TAB PO PRN (08:43)
--- NOTE | 2021-05-01 10:16 | Hospitalist Progress Note ---
Date of Service May 01, 2021 Assessment & Plan (1) 2019 novel coronavirus-infected pneumonia (NCIP): Plan: Dexamethasone 6mg IV qAM x 10 days, day 2 today no role for Remdesivir as he is 2 weeks out from onset of symptoms no role for baricitinib, only on 5L encourage him to eat and drink, lay on his side or prone flutter valve and incentive spirometer at the bedside try to wean off oxygen (2) Hypoxia: Plan: Aim O2 sats > 90% requiring 5L today, up slightly from 4L, no distress flutter valve, incentive spirometer consider Lasix if he is drinking fluids consistently (3) B-cell lymphoma: Plan: had a biopsy in the summer of 2020, never followed up with oncology/hematology will work on getting him follow up once recovered from COVID WBC is 38k Plan: VTE prophylaxis - Lovenox 40mg SQ daily Diet - regular Disposition - continue COVID unit Admission and Anticipated Discharge Date Admission Date: April 30, 2021 Subjective patient says he feels better today compared to yesterday, he is not nauseated any more his breathing is a little better, he is on 5L right now while on his left side, saturations are 95% had some oatmeal for breakfast, drinking fluids he confirms he has been sick for about 2 weeks we discussed the CLL diagnosis and getting hematology to see him at some point, not urgent no fever/chills, + weakness, no chest pain, + dyspnea and cough, no diarrhea, nausea resolved Review of Systems Review of Systems: All systems reviewed & are unremarkable except as noted in Subjective Physical Exam Physical Exam: General: well developed, well nourished, ill appearing but not in distress Neck: supple, trachea midline, normal thyroid Lungs: clear to auscultation bilaterally, slightly tachypneic, no accessory muscle use, no distress Heart: regular S1 and S2, no murmur, peripheral pulses normal, capillary refill normal, no edema Abdomen: soft, NT, ND, + BS, no hepatomegaly, normal to percussion Extremities: normal in appearance, no cyanosis, no petechiae, strength is 5/5 bilaterally Neuro: awake, cooperative, moves all extremities, no focal motor deficits, CN II-XII intact, sensation in extremities intact, normal speech Skin: warm, dry, no rash, normal turgor Psych: Awake, alert oriented x 3, euthymic affect Results & Data Results & Data ([facility]) Vital Signs (Past 12 Hours) Vital Signs Temp Pulse Pulse Resp BP BP Pulse Ox 05/01/21 09:00 64 29 H 95 05/01/21 08:45 37.4 C 70 24 119/76 93 05/01/21 08:30 61 24 119/79 98 05/01/21 08:00 63 27 H 92 05/01/21 07:30 61 25 H 112/73 92 05/01/21 07:00 62 35 H 93 05/01/21 06:30 62 23 96 05/01/21 06:00 61 25 H 95 05/01/21 05:30 61 24 93 05/01/21 05:00 59 L 28 H 94 05/01/21 04:30 69 27 H 103/61 95 05/01/21 04:00 55 L 12 111/66 94 05/01/21 03:30 62 18 116/73 93 05/01/21 03:06 61 22 121/93 90 05/01/21 03:00 75 32 H 84 L 05/01/21 02:30 59 L 26 H 120/77 95 05/01/21 02:00 55 L 20 103/72 94 05/01/21 01:30 59 L 29 H 118/79 94 05/01/21 01:00 58 L 25 H 95 05/01/21 00:30 94 05/01/21 00:00 95 04/30/21 23:30 96 04/30/21 23:16 72 18 124/77 94 04/30/21 23:00 96 04/30/21 22:30 96 Laboratory Results Laboratory Results - last 24 hr 04/30/21 04/30/21 04/30/21 13:38 13:38 13:38 WBC 38.48 H* RBC 4.14 L Hgb 13.0 L Hct 39.1 L MCV 94.4 MCH 31.4 MCHC 33.2 RDW Std Deviation 48.7 H RDW Coeff of Ho 14.3 Plt Count 131 MPV 10.2 Immature Gran % (Auto) 0.2 Neut % (Auto) 15.8 Lymph % (Auto) 83.7 [place] % (Auto) 0.2 Eos % (Auto) 0.0 Baso % (Auto) 0.1 Neut # (Auto) 6.09 Lymph # (Auto) 32.19 H [place] # (Auto) 0.07 L Eos # (Auto) 0.00 Baso # (Auto) 0.04 Immature Gran # (Auto) 0.09 H Smudge Cells Present Platelet Estimate Normal Plt Count ,Citrate PT 10.6 INR 1.0 Sodium 135 L Potassium 4.1 Chloride 104 Carbon Dioxide 25 Anion Gap 6.0 BUN 22 H Creatinine 0.80 Est Cr Clr Drug Dosing 101.0 Est GFR ( Amer) 108.7 Est GFR (Non-Af Amer) 93.7 BUN/Creatinine Ratio 26.8 H Glucose 126 H Lactate Calcium 8.6 Magnesium 2.4 Total Bilirubin 0.7 AST 32 ALT 25 Alkaline Phosphatase 56 Total Creatine Kinase 65 Troponin I < 0.015 C-Reactive Protein 5.77 H Total Protein 7.0 Albumin 3.0 L Globulin 4.0 Albumin/Globulin Ratio 0.8 L Lipase 131 Procalcitonin TSH 1.440 Urine Color Urine Appearance Urine pH Ur Specific [place] Urine Protein Urine Glucose (UA) Urine Ketones Urine Blood Urine Nitrite Urine Bilirubin Urine Urobilinogen Ur Leukocyte Esterase Urine WBC (Auto) Urine RBC (Auto) U Hyaline Cast (Auto) U Epithel Cells (Auto) Urine Bacteria (Auto) SARS-CoV-2 (PCR) Influenza Type A (PCR) Influenza Type B (PCR) RSV (RT-PCR) 04/30/21 04/30/21 04/30/21 13:38 14:15 14:22 WBC RBC Hgb Hct MCV MCH MCHC RDW Std Deviation RDW Coeff of Ho Plt Count MPV Immature Gran % (Auto) Neut % (Auto) Lymph % (Auto) [place] % (Auto) Eos % (Auto) Baso % (Auto) Neut # (Auto) Lymph # (Auto) [place] # (Auto) Eos # (Auto) Baso # (Auto) Immature Gran # (Auto) Smudge Cells Platelet Estimate Plt Count ,Citrate PT INR Sodium Potassium Chloride Carbon Dioxide Anion Gap BUN Creatinine Est Cr Clr Drug Dosing Est GFR ( Amer) Est GFR (Non-Af Amer) BUN/Creatinine Ratio Glucose Lactate 1.0 Calcium Magnesium Total Bilirubin AST ALT Alkaline Phosphatase Total Creatine Kinase Troponin I C-Reactive Protein Total Protein Albumin Globulin Albumin/Globulin Ratio Lipase Procalcitonin < 0.05 TSH Urine Color Urine Appearance Urine pH Ur Specific [place] Urine Protein Urine Glucose (UA) Urine Ketones Urine Blood Urine Nitrite Urine Bilirubin Urine Urobilinogen Ur Leukocyte Esterase Urine WBC (Auto) Urine RBC (Auto) U Hyaline Cast (Auto) U Epithel Cells (Auto) Urine Bacteria (Auto) SARS-CoV-2 (PCR) POSITIVE A* Influenza Type A (PCR) Negative Influenza Type B (PCR) Negative RSV (RT-PCR) Negative 04/30/21 04/30/21 14:22 16:47 WBC RBC Hgb Hct MCV MCH MCHC RDW Std Deviation RDW Coeff of Ho Plt Count MPV Immature Gran % (Auto) Neut % (Auto) Lymph % (Auto) [place] % (Auto) Eos % (Auto) Baso % (Auto) Neut # (Auto) Lymph # (Auto) [place] # (Auto) Eos # (Auto) Baso # (Auto) Immature Gran # (Auto) Smudge Cells Platelet Estimate Plt Count ,Citrate Cancelled PT INR Sodium Potassium Chloride Carbon Dioxide Anion Gap BUN Creatinine Est Cr Clr Drug Dosing Est GFR ( Amer) Est GFR (Non-Af Amer) BUN/Creatinine Ratio Glucose Lactate Calcium Magnesium Total Bilirubin AST ALT Alkaline Phosphatase Total Creatine Kinase Troponin I C-Reactive Protein Total Protein Albumin Globulin Albumin/Globulin Ratio Lipase Procalcitonin TSH Urine Color Yellow Urine Appearance Clear Urine pH 5.5 Ur Specific [place] > 1.045 H Urine Protein Trace H Urine Glucose (UA) Negative Urine Ketones 1+ H Urine Blood Negative Urine Nitrite Negative Urine Bilirubin Negative Urine Urobilinogen Negative Ur Leukocyte Esterase Negative Urine WBC (Auto) 1-5 Urine RBC (Auto) 0-4 U Hyaline Cast (Auto) 0 U Epithel Cells (Auto) 0-5 Urine Bacteria (Auto) Negative SARS-CoV-2 (PCR) Influenza Type A (PCR) Influenza Type B (PCR) RSV (RT-PCR) Medications Administered Current Inpatient Medications Acetaminophen (Acetaminophen 325 Mg Tab) 650 mg PO Q4H PRN PRN Reason: pain/fever Stop: 05/30/21 19:57 Last Admin: 05/01/21 08:43 Dose: 650 mg Documented by: Al Hydrox/Mg Hydrox/Simethicone (Aluminum/Magnesium Susp 30 Ml Udc) 30 ml PO Q6H PRN PRN Reason: Dyspepsia Stop: 05/30/21 19:57 Enoxaparin Sodium (Enoxaparin Inj 40 Mg/0.4 Ml Syr) 40 mg SQ QPM [facility] Stop: 05/30/21 20:59 Last Admin: 04/30/21 21:04 Dose: 40 mg Documented by: Dexamethasone 6 mg/ Syringe 1.5 mls @ 1 mls/min IV QAM [facility] Stop: 05/31/21 08:59 Last Admin: 05/01/21 08:37 Dose: 1 mls/min Documented by: Ondansetron HCl (Ondansetron Inj 2 Mg/Ml 2 Ml Vial) 4 mg IV Q6H PRN PRN Reason: Nausea Stop: 05/30/21 19:57 Polyethylene Glycol (Polyethylene (Miralax) 17 Gm Pack) 17 gm PO DAILY PRN PRN Reason: Constipation Stop: 05/30/21 19:57 PG Care Time/CCT Total # of Minutes Spent Total Time Spent with Patient: Total time spent is greater than 50% in coordination of care (as documented) at patient's floor/unit and/or counseling patient: Coding Level of Care Code 58404 Subseq Hosp Care Lvl 2 Diagnoses 2019 novel coronavirus-infected pneumonia (NCIP) U07.1; J12.82 Hypoxia R09.02 B-cell lymphoma C85.10
--- NOTE | 2021-05-01 12:55 | Electrocardiogram Report ---
Test Reason : Blood Pressure : / mmHG Vent. Rate : 076 BPM Atrial Rate : 076 BPM P-R Int : 126 ms QRS Dur : 082 ms QT Int : 376 ms P-R-T Axes : 027 -08 005 degrees QTc Int : 423 ms Poor data quality, interpretation may be adversely affected Normal sinus rhythm Possible Left atrial enlargement Left ventricular hypertrophy Abnormal ECG When compared with ECG of 19-JUN-2019 10:48, No significant change was found Confirmed by Rc Quezada ([id number]) on 05/01/2021 12:55:27 PM Referred By: REFERRED SELF Confirmed By:Rc Quezada
[2021-05-01] MEDS ORDERED: ALBUT/IPRATROP 3MG/0.5MG NEB 3 ML VIAL NEB PRN (18:37)
[2021-05-01] MEDS: guaiFENesin/CODEINE 100MG/10MG 5ML UDC PO PRN (18:44)
[2021-05-01] MEDS: ENOXAPARIN INJ 40 MG/0.4 ML SYR SQ SCH (19:58)
[2021-05-02 05:11] LABS: Hematocrit (blood only) 36.7 % (42-52); Mean Corpuscular Hemoglobin 31.2 pg (25-34); Mean Corpuscular Hgb Conc 32.7 g/dL (32-36); Mean Corpuscular Volume 95.3 fL (80-100); Mean Platelet Volume 9.9 fL (7.4-10.4); Platelet Count 151 K/uL (130-400); RDW Coefficient of Variation 14.2 % (11.5-14.5); RDW Standard Deviation 49.3 fL (36.4-46.3); Red Blood Count 3.85 M/uL (4.7-6.1)
[2021-05-02 05:38] LABS: BUN Creatinine Ratio 28.5 (10-20); C Reactive Protein 2.05 mg/dl (0-0.29); Calcium 8.5 mg/dl (8.5-10.1); Est GFR (African American) 110.4 ml/min; Est GFR (Non-African American) 95.2 ml/min; Potassium 3.9 mmol/L (3.5-5.1)
[2021-05-02] MEDS: dexAMETHasone 6 MG in SYRINGE 0 ML IV SCH (10:07)
--- NOTE | 2021-05-02 15:53 | Hospitalist Progress Note ---
Date of Service May 02, 2021 Assessment & Plan (1) 2019 novel coronavirus-infected pneumonia (NCIP): Plan: Dexamethasone 6mg IV qAM x 10 days, day 3 today no role for Remdesivir as he is 2 weeks out from onset of symptoms no role for baricitinib, only on 7L if he is up to high flow tomorrow then consider baricitinib encourage him to eat and drink (not doing very well), lay on his side or prone flutter valve and incentive spirometer at the bedside try to wean off oxygen (2) Hypoxia: Plan: Aim O2 sats > 90% requiring 7L today, up slightly from 5L, no distress flutter valve, incentive spirometer consider Lasix but he is not drinking much fluid (3) B-cell lymphoma: Plan: had a biopsy in the summer of 2020, never followed up with oncology/hematology will work on getting him follow up once recovered from COVID WBC is 29k Plan: VTE prophylaxis - Lovenox 40mg SQ daily Diet - regular Disposition - continue COVID unit Admission and Anticipated Discharge Date Admission Date: April 30, 2021 Subjective patient with very flat affect, but he says he feels maybe a little better has a dry cough, not very short of breath no fever/chills he has no appetite, denies nausea or diarrhea he is up to 7L oxy mask today Review of Systems Review of Systems: All systems reviewed & are unremarkable except as noted in Subjective Physical Exam Physical Exam: General: well developed, well nourished, ill appearing but not in distress Neck: supple, trachea midline, normal thyroid Lungs: clear to auscultation bilaterally, slightly tachypneic, no accessory muscle use, no distress Heart: regular S1 and S2, no murmur, peripheral pulses normal, capillary refill normal, no edema Abdomen: soft, NT, ND, + BS, no hepatomegaly, normal to percussion Extremities: normal in appearance, no cyanosis, no petechiae, strength is 5/5 bilaterally Neuro: awake, cooperative, moves all extremities, no focal motor deficits, CN II-XII intact, sensation in extremities intact, normal speech Skin: warm, dry, no rash, normal turgor Psych: Awake, alert oriented x 3, euthymic affect Results & Data Results & Data ([facility]) Vital Signs (Past 12 Hours) Vital Signs Temp Pulse Pulse Resp BP BP Pulse Ox 05/02/21 14:28 37.4 C 72 16 125/81 94 05/02/21 13:10 68 22 101/64 95 05/02/21 08:00 87 18 132/79 95 05/02/21 06:00 78 26 H 117/66 97 05/02/21 05:00 76 30 H 128/76 93 05/02/21 04:00 73 31 H 126/78 96 Laboratory Results Laboratory Results - last 24 hr 05/02/21 05/02/21 04:37 04:37 WBC 29.10 H RBC 3.85 L Hgb 12.0 L Hct 36.7 L MCV 95.3 MCH 31.2 MCHC 32.7 RDW Std Deviation 49.3 H RDW Coeff of Ho 14.2 Plt Count 151 MPV 9.9 Sodium 138 Potassium 3.9 Chloride 105 Carbon Dioxide 28 Anion Gap 5.0 BUN 22 H Creatinine 0.77 Est Cr Clr Drug Dosing 105.0 Est GFR ( Amer) 110.4 Est GFR (Non-Af Amer) 95.2 BUN/Creatinine Ratio 28.5 H Glucose 120 H Calcium 8.5 C-Reactive Protein 2.05 H Medications Administered Current Inpatient Medications Acetaminophen (Acetaminophen 325 Mg Tab) 650 mg PO Q4H PRN PRN Reason: pain/fever Stop: 05/30/21 19:57 Last Admin: 05/01/21 08:43 Dose: 650 mg Documented by: Al Hydrox/Mg Hydrox/Simethicone (Aluminum/Magnesium Susp 30 Ml Udc) 30 ml PO Q6H PRN PRN Reason: Dyspepsia Stop: 05/30/21 19:57 Albuterol (Albut/Ipratrop 3mg/0.5mg Neb 3 Ml Vial) 3 ml NEB Q2R PRN PRN Reason: Dyspnea Stop: 05/31/21 18:36 Last Admin: 05/01/21 19:41 Dose: 3 ml Documented by: Enoxaparin Sodium (Enoxaparin Inj 40 Mg/0.4 Ml Syr) 40 mg SQ QPM JUAN Stop: 05/30/21 20:59 Last Admin: 05/01/21 19:58 Dose: 40 mg Documented by: Guaifenesin/Codeine Phosphate (Guaifenesin/Codeine 100mg/10mg 5ml Udc) 5 ml PO Q6H PRN PRN Reason: Cough Stop: 05/31/21 18:36 Last Admin: 05/01/21 18:44 Dose: 5 ml Documented by: Dexamethasone 6 mg/ Syringe 1.5 mls @ 1 mls/min IV QAM JUAN Stop: 05/31/21 08:59 Last Admin: 05/02/21 10:07 Dose: 1 mls/min Documented by: Ondansetron HCl (Ondansetron Inj 2 Mg/Ml 2 Ml Vial) 4 mg IV Q6H PRN PRN Reason: Nausea Stop: 05/30/21 19:57 Last Admin: 05/02/21 10:11 Dose: 4 mg Documented by: Polyethylene Glycol (Polyethylene (Miralax) 17 Gm Pack) 17 gm PO DAILY PRN PRN Reason: Constipation Stop: 05/30/21 19:57 PG Care Time/CCT Total # of Minutes Spent Total Time Spent with Patient: Total time spent is greater than 50% in coordination of care (as documented) at patient's floor/unit and/or counseling patient: Coding Level of Care Code 09645 Subseq Hosp Care Lvl 2 Diagnoses 2019 novel coronavirus-infected pneumonia (NCIP) U07.1; J12.82 Hypoxia R09.02 B-cell lymphoma C85.10
[2021-05-02 18:17] LABS: SARS CoV2 RNA(COVID-19) InHosp POSITIVE (Negative)
[2021-05-02] MEDS: ENOXAPARIN INJ 40 MG/0.4 ML SYR SQ SCH (20:53)
[2021-05-03] MEDS: ACETAMINOPHEN 325 MG TAB PO PRN (07:39)
[2021-05-03] MEDS: dexAMETHasone 6 MG in SYRINGE 0 ML IV SCH (08:10)
--- NOTE | 2021-05-03 12:34 | Hospitalist Progress Note ---
Date of Service May 03, 2021 Assessment & Plan (1) 2019 novel coronavirus-infected pneumonia (NCIP): Plan: Dexamethasone 6mg IV qAM x 10 days, day 4 today no role for Remdesivir as he is 2 weeks out from onset of symptoms no role for baricitinib, only on 6L encourage him to eat and drink, lay on his side or prone flutter valve and incentive spirometer at the bedside try to wean off oxygen (2) Hypoxia: Plan: Aim O2 sats > 90% requiring 6L today, slightly better than yesterday flutter valve, incentive spirometer consider Lasix but he is not drinking much fluid (3) B-cell lymphoma: Plan: had a biopsy in the summer of 2020, never followed up with oncology/hematology will work on getting him follow up once recovered from COVID WBC was 29k yesterday Plan: VTE prophylaxis - Lovenox 40mg SQ daily Diet - regular Disposition - continue COVID unit Admission and Anticipated Discharge Date Admission Date: April 30, 2021 Subjective patient is actually feeling better, breathing easier actually eating today, no nausea, no abdominal pain, no diarrhea no fever, no cough Review of Systems Review of Systems: All systems reviewed & are unremarkable except as noted in Subjective Respiratory: + cough, + dyspnea and + dyspnea on exertion Physical Exam Physical Exam: General: well developed, well nourished, ill appearing but not in distress Neck: supple, trachea midline, normal thyroid Lungs: clear to auscultation bilaterally, slightly tachypneic, no accessory muscle use, no distress Heart: regular S1 and S2, no murmur, peripheral pulses normal, capillary refill normal, no edema Abdomen: soft, NT, ND, + BS, no hepatomegaly, normal to percussion Extremities: normal in appearance, no cyanosis, no petechiae, strength is 5/5 bilaterally Neuro: awake, cooperative, moves all extremities, no focal motor deficits, CN II-XII intact, sensation in extremities intact, normal speech Skin: warm, dry, no rash, normal turgor Psych: Awake, alert oriented x 3, euthymic affect Results & Data Results & Data ([facility]) Vital Signs (Past 12 Hours) Vital Signs Temp Pulse Resp BP Pulse Ox 05/03/21 08:13 37.2 C 05/03/21 08:01 38.3 C H 86 20 142/80 H 94 Medications Administered Current Inpatient Medications Acetaminophen (Acetaminophen 325 Mg Tab) 650 mg PO Q4H PRN PRN Reason: pain/fever Stop: 05/30/21 19:57 Last Admin: 05/03/21 07:39 Dose: 650 mg Documented by: Al Hydrox/Mg Hydrox/Simethicone (Aluminum/Magnesium Susp 30 Ml Udc) 30 ml PO Q6H PRN PRN Reason: Dyspepsia Stop: 05/30/21 19:57 Albuterol (Albut/Ipratrop 3mg/0.5mg Neb 3 Ml Vial) 3 ml NEB Q2R PRN PRN Reason: Dyspnea Stop: 05/31/21 18:36 Last Admin: 05/01/21 19:41 Dose: 3 ml Documented by: Enoxaparin Sodium (Enoxaparin Inj 40 Mg/0.4 Ml Syr) 40 mg SQ QPM [facility]UAN Stop: 05/30/21 20:59 Last Admin: 05/02/21 20:53 Dose: 40 mg Documented by: Guaifenesin/Codeine Phosphate (Guaifenesin/Codeine 100mg/10mg 5ml Udc) 5 ml PO Q6H PRN PRN Reason: Cough Stop: 05/31/21 18:36 Last Admin: 05/01/21 18:44 Dose: 5 ml Documented by: Dexamethasone 6 mg/ Syringe 1.5 mls @ 1 mls/min IV QAM JUAN Stop: 05/31/21 08:59 Last Admin: 05/03/21 08:10 Dose: 1 mls/min Documented by: Ondansetron HCl (Ondansetron Inj 2 Mg/Ml 2 Ml Vial) 4 mg IV Q6H PRN PRN Reason: Nausea Stop: 05/30/21 19:57 Last Admin: 05/02/21 10:11 Dose: 4 mg Documented by: Polyethylene Glycol (Polyethylene (Miralax) 17 Gm Pack) 17 gm PO DAILY PRN PRN Reason: Constipation Stop: 05/30/21 19:57 PG Care Time/CCT Total # of Minutes Spent Total Time Spent with Patient: Total time spent is greater than 50% in coordination of care (as documented) at patient's floor/unit and/or counseling patient: Coding Level of Care Code 07764 Subseq Hosp Care Lvl 2 Diagnoses 2019 novel coronavirus-infected pneumonia (NCIP) U07.1; J12.82 Hypoxia R09.02 B-cell lymphoma C85.10
[2021-05-03] MEDS: ENOXAPARIN INJ 40 MG/0.4 ML SYR SQ SCH (20:23)
[2021-05-03] MEDS: DOCUSATE SODIUM 100 MG CAP PO SCH (20:23)
[2021-05-04 07:25] LABS: Hematocrit (blood only) 38.1 % (42-52); Hemoglobin 12.5 g/dL (14.0-18.0); Mean Corpuscular Hemoglobin 31.5 pg (25-34); Mean Corpuscular Hgb Conc 32.8 g/dL (32-36); Mean Platelet Volume 10.7 fL (7.4-10.4); Platelet Count 160 K/uL (130-400); RDW Coefficient of Variation 14.2 % (11.5-14.5); RDW Standard Deviation 49.4 fL (36.4-46.3); Red Blood Count 3.97 M/uL (4.7-6.1); White Blood Count 31.21 K/uL (4.8-10.8)
[2021-05-04 07:36] LABS: BUN Creatinine Ratio 38.5 (10-20); C Reactive Protein 5.91 mg/dl (0-0.29); Calcium 8.6 mg/dl (8.5-10.1); Creatinine Clr Calc Pharmacy 128.3 ml/min; Est GFR (African American) 119.9 ml/min; Est GFR (Non-African American) 103.4 ml/min; Potassium 3.8 mmol/L (3.5-5.1)
[2021-05-04] MEDS: ACETAMINOPHEN 325 MG TAB PO PRN (07:45)
[2021-05-04] MEDS: dexAMETHasone 6 MG in SYRINGE 0 ML IV SCH (09:14)
[2021-05-04] MEDS: DOCUSATE SODIUM 100 MG CAP PO SCH ×2 (09:14→20:34)
--- NOTE | 2021-05-04 10:53 | Hospitalist Progress Note ---
Date of Service May 04, 2021 Assessment & Plan (1) 2019 novel coronavirus-infected pneumonia (NCIP): Plan: Dexamethasone 6mg IV qAM x 10 days, day 5 today no role for Remdesivir as he is 2 weeks out from onset of symptoms no role for baricitinib, only on 6-7L encourage him to eat and drink, lay on his side or prone flutter valve and incentive spirometer at the bedside try to wean off oxygen, not moving too much the past two days low grade temp, with his leukocytosis (lymphoma) could be slightly immunocompromised will start Rocephin 2gm IV daily and Zithromax 500mg daily x 5 days, first day 05/04/21 (2) Hypoxia: Plan: Aim O2 sats > 90% requiring 6-7L today, slightly better than yesterday flutter valve, incentive spirometer consider Lasix but he is not drinking much fluid (3) B-cell lymphoma: Plan: had a biopsy in the summer of 2020, never followed up with oncology/hematology will work on getting him follow up once recovered from COVID WBC remains > 30k today Plan: VTE prophylaxis - Lovenox 40mg SQ daily Diet - regular Disposition - continue COVID unit Admission and Anticipated Discharge Date Admission Date: April 30, 2021 Subjective patient with low grade temp this morning, not above 38 very flat affect still he says he is eating, he had two BM yesterday, no nausea discussed starting some antibiotics with the low grade temp, he understands plan stable on 6-7L Review of Systems Review of Systems: All systems reviewed & are unremarkable except as noted in Subjective Respiratory: + cough and + dyspnea Physical Exam Physical Exam: General: well developed, well nourished, ill appearing but not in distress Neck: supple, trachea midline, normal thyroid Lungs: clear to auscultation bilaterally, slightly tachypneic, no accessory muscle use, no distress Heart: regular S1 and S2, no murmur, peripheral pulses normal, capillary refill normal, no edema Abdomen: soft, NT, ND, + BS, no hepatomegaly, normal to percussion Extremities: normal in appearance, no cyanosis, no petechiae, strength is 5/5 bilaterally Neuro: awake, cooperative, moves all extremities, no focal motor deficits, CN II-XII intact, sensation in extremities intact, normal speech Skin: warm, dry, no rash, normal turgor Psych: Awake, alert oriented x 3, flat affect Results & Data Results & Data ([facility]) Vital Signs (Past 12 Hours) Vital Signs Temp Pulse Resp BP BP Pulse Ox 05/04/21 07:59 37.8 C H 91 H 20 132/86 90 05/04/21 03:15 36.7 C 83 24 143/97 H 92 05/03/21 23:14 37.2 C 71 20 129/80 92 Laboratory Results Laboratory Results - last 24 hr 05/04/21 05/04/21 05:29 05:29 WBC 31.21 H* RBC 3.97 L Hgb 12.5 L Hct 38.1 L MCV 96.0 MCH 31.5 MCHC 32.8 RDW Std Deviation 49.4 H RDW Coeff of Ho 14.2 Plt Count 160 MPV 10.7 H Sodium 138 Potassium 3.8 Chloride 104 Carbon Dioxide 25 Anion Gap 9.0 BUN 24 H Creatinine 0.63 Est Cr Clr Drug Dosing 128.3 Est GFR ( Amer) 119.9 Est GFR (Non-Af Amer) 103.4 BUN/Creatinine Ratio 38.5 H Glucose 100 H Calcium 8.6 C-Reactive Protein 5.91 H Medications Administered Current Inpatient Medications Acetaminophen (Acetaminophen 325 Mg Tab) 650 mg PO Q4H PRN PRN Reason: pain/fever Stop: 05/30/21 19:57 Last Admin: 05/04/21 07:45 Dose: 650 mg Documented by: Al Hydrox/Mg Hydrox/Simethicone (Aluminum/Magnesium Susp 30 Ml Udc) 30 ml PO Q6H PRN PRN Reason: Dyspepsia Stop: 05/30/21 19:57 Albuterol (Albut/Ipratrop 3mg/0.5mg Neb 3 Ml Vial) 3 ml NEB Q2R PRN PRN Reason: Dyspnea Stop: 05/31/21 18:36 Last Admin: 05/01/21 19:41 Dose: 3 ml Documented by: Azithromycin (Azithromycin 250 Mg Tab) 500 mg PO QAM [facility]; Protocol Stop: 05/11/21 10:44 Docusate Sodium (Docusate Sodium 100 Mg Cap) 100 mg PO BID JUAN Stop: 06/02/21 20:59 Last Admin: 05/04/21 09:14 Dose: 100 mg Documented by: Enoxaparin Sodium (Enoxaparin Inj 40 Mg/0.4 Ml Syr) 40 mg SQ QPM JUAN Stop: 05/30/21 20:59 Last Admin: 05/03/21 20:23 Dose: 40 mg Documented by: Guaifenesin/Codeine Phosphate (Guaifenesin/Codeine 100mg/10mg 5ml Udc) 5 ml PO Q6H PRN PRN Reason: Cough Stop: 05/31/21 18:36 Last Admin: 05/01/21 18:44 Dose: 5 ml Documented by: Dexamethasone 6 mg/ Syringe 1.5 mls @ 1 mls/min IV QAM JUAN Stop: 05/31/21 08:59 Last Admin: 05/04/21 09:14 Dose: 1 mls/min Documented by: Ceftriaxone Sodium 2,000 mg/ (Dextrose) 70 mls @ 100 mls/hr IV Q24H JUAN; Protocol Stop: 05/11/21 10:59 Ondansetron HCl (Ondansetron Inj 2 Mg/Ml 2 Ml Vial) 4 mg IV Q6H PRN PRN Reason: Nausea Stop: 05/30/21 19:57 Last Admin: 05/02/21 10:11 Dose: 4 mg Documented by: Polyethylene Glycol (Polyethylene (Miralax) 17 Gm Pack) 17 gm PO DAILY PRN PRN Reason: Constipation Stop: 05/30/21 19:57 PG Care Time/CCT Total # of Minutes Spent Total Time Spent with Patient: Total time spent is greater than 50% in coordination of care (as documented) at patient's floor/unit and/or counseling patient: Coding Level of Care Code 61940 Subseq Hosp Care Lvl 2 Diagnoses 2019 novel coronavirus-infected pneumonia (NCIP) U07.1; J12.82 Hypoxia R09.02 B-cell lymphoma C85.10
[2021-05-04] MEDS: cefTRIAXone SODIUM 2,000 MG in DEXTROSE 5% 50 ML IV SCH (11:56)
[2021-05-04] MEDS: AZITHROMYCIN 250 MG TAB PO SCH (11:57)
[2021-05-04] MEDS: ENOXAPARIN INJ 40 MG/0.4 ML SYR SQ SCH (20:34)
[2021-05-04] MEDS: guaiFENesin/CODEINE 100MG/10MG 5ML UDC PO PRN (20:39)
[2021-05-04] MEDS ORDERED: MELATONIN 3 MG TAB PO PRN (22:33)
[2021-05-05] MEDS: dexAMETHasone 6 MG in SYRINGE 0 ML IV SCH (08:27)
[2021-05-05] MEDS: AZITHROMYCIN 250 MG TAB PO SCH (08:28)
[2021-05-05] MEDS: DOCUSATE SODIUM 100 MG CAP PO SCH ×2 (08:28→20:41)
[2021-05-05] MEDS: cefTRIAXone SODIUM 2,000 MG in DEXTROSE 5% 50 ML IV SCH (10:30)
--- NOTE | 2021-05-05 13:32 | Hospitalist Progress Note ---
Date of Service May 05, 2021 Assessment & Plan (1) 2019 novel coronavirus-infected pneumonia (NCIP): Plan: Dexamethasone 6mg IV qAM x 10 days, day 6 today no role for Remdesivir as he is 2 weeks out from onset of symptoms no role for baricitinib, only on 6L encourage him to eat and drink, lay on his side or prone flutter valve and incentive spirometer at the bedside try to wean off oxygen, not moving too much the past three days but also not getting worse give lasix 20mg IV in the morning low grade temp, with his leukocytosis (lymphoma) could be slightly immunocompromised will start Rocephin 2gm IV daily and Zithromax 500mg daily x 5 days, last day would be 05/08/21 (2) Hypoxia: Plan: Aim O2 sats > 90% requiring 6L today, slightly better than yesterday flutter valve, incentive spirometer Lasix tomorrow (3) B-cell lymphoma: Plan: had a biopsy in the summer of 2020, never followed up with oncology/hematology will work on getting him follow up once recovered from COVID WBC remains > 30k on 05/04 Plan: VTE prophylaxis - Lovenox 40mg SQ daily Diet - regular Disposition - continue COVID unit Admission and Anticipated Discharge Date Admission Date: April 30, 2021 Subjective patient doing well, no new issues, he sat up in a chair for a few hours today still on 6L, will try giving Lasix tomorrow to get oxygen down eating better each day, his strength is improving discussed getting down to 2L so he can go home Review of Systems Review of Systems: All systems reviewed & are unremarkable except as noted in Subjective Physical Exam Physical Exam: General: well developed, well nourished, no distress Neck: supple, trachea midline, normal thyroid Lungs: clear to auscultation bilaterally, normal respiratory effort, no accessory muscle use, no distress Heart: regular S1 and S2, no murmur, peripheral pulses normal, capillary refill normal, no edema Abdomen: soft, NT, ND, + BS, no hepatomegaly, normal to percussion Extremities: normal in appearance, no cyanosis, no petechiae, strength is 5/5 bilaterally Neuro: awake, cooperative, moves all extremities, no focal motor deficits, CN II-XII intact, sensation in extremities intact, normal speech Skin: warm, dry, no rash, normal turgor Psych: Awake, alert oriented x 3, flat affect Results & Data Results & Data ([facility]) Vital Signs (Past 12 Hours) Vital Signs Temp Pulse Resp BP Pulse Ox 05/05/21 08:31 37.6 C H 80 20 115/77 93 Medications Administered Current Inpatient Medications Acetaminophen (Acetaminophen 325 Mg Tab) 650 mg PO Q4H PRN PRN Reason: pain/fever Stop: 05/30/21 19:57 Last Admin: 05/04/21 07:45 Dose: 650 mg Documented by: Al Hydrox/Mg Hydrox/Simethicone (Aluminum/Magnesium Susp 30 Ml Udc) 30 ml PO Q6H PRN PRN Reason: Dyspepsia Stop: 05/30/21 19:57 Albuterol (Albut/Ipratrop 3mg/0.5mg Neb 3 Ml Vial) 3 ml NEB Q2R PRN PRN Reason: Dyspnea Stop: 05/31/21 18:36 Last Admin: 05/01/21 19:41 Dose: 3 ml Documented by: Azithromycin ([facility] 250 Mg Tab) [facility] Protocol Stop: 05/11/21 10:44 Last Admin: 05/05/21 08:28 Dose: 500 mg Documented by: Docusate Sodium (Docusate Sodium 100 Mg Cap) 100 mg PO BID [facility] Stop: 06/02/21 20:59 Last Admin: 05/05/21 08:28 Dose: 100 mg Documented by: Enoxaparin Sodium (Enoxaparin Inj 40 Mg/0.4 Ml Syr) 40 mg SQ QPM [facility] Stop: 05/30/21 20:59 Last Admin: 05/04/21 20:34 Dose: 40 mg Documented by: Guaifenesin/Codeine Phosphate (Guaifenesin/Codeine 100mg/10mg 5ml Udc) 5 ml PO Q6H PRN PRN Reason: Cough Stop: 05/31/21 18:36 Last Admin: 05/04/21 20:39 Dose: 5 ml Documented by: Dexamethasone 6 mg/ Syringe 1.5 mls @ 1 mls/min IV QAM [facility] Stop: 05/31/21 08:59 Last Admin: 05/05/21 08:27 Dose: 1 mls/min Documented by: Ceftriaxone Sodium 2,000 mg/ (Dextrose) 70 mls @ 100 mls/hr IV Q24H [facility]; Protocol Stop: 05/11/21 10:59 Last Infusion: 05/05/21 11:15 Dose: Infused Documented by: Melatonin (Melatonin 3 Mg Tab) 6 mg PO HS PRN PRN Reason: Sleep Stop: 06/03/21 22:32 Last Admin: 05/04/21 22:50 Dose: 6 mg Documented by: Ondansetron HCl (Ondansetron Inj 2 Mg/Ml 2 Ml Vial) 4 mg IV Q6H PRN PRN Reason: Nausea Stop: 05/30/21 19:57 Last Admin: 05/02/21 10:11 Dose: 4 mg Documented by: Polyethylene Glycol (Polyethylene (Miralax) 17 Gm Pack) 17 gm PO DAILY PRN PRN Reason: Constipation Stop: 05/30/21 19:57 PG Care Time/CCT Total # of Minutes Spent Total Time Spent with Patient: Total time spent is greater than 50% in coordination of care (as documented) at patient's floor/unit and/or counseling patient: Coding Level of Care Code 36586 Subseq Hosp Care Lvl 2 Diagnoses 2019 novel coronavirus-infected pneumonia (NCIP) U07.1; J12.82 Hypoxia R09.02 B-cell lymphoma C85.10
[2021-05-05] MEDS: ENOXAPARIN INJ 40 MG/0.4 ML SYR SQ SCH (20:41)
[2021-05-06] MEDS: AZITHROMYCIN 250 MG TAB PO SCH (08:20)
[2021-05-06] MEDS: dexAMETHasone 6 MG in SYRINGE 0 ML IV SCH (08:21)
[2021-05-06] MEDS: DOCUSATE SODIUM 100 MG CAP PO SCH ×2 (08:21→20:01)
[2021-05-06] MEDS ORDERED: FUROSEMIDE INJ 20 MG/2 ML VIAL IV ONE (10:47)
[2021-05-06] MEDS: cefTRIAXone SODIUM 2,000 MG in DEXTROSE 5% 50 ML IV SCH (10:49)
[2021-05-06] MEDS: ENOXAPARIN INJ 40 MG/0.4 ML SYR SQ SCH (20:02)
--- NOTE | 2021-05-07 01:38 | Hospitalist Progress Note ---
Date of Service May 06, 2021 Assessment & Plan (1) 2019 novel coronavirus-infected pneumonia (NCIP): Plan: Dexamethasone 6mg IV qAM x 10 days, day 7 today no role for Remdesivir as he is 2 weeks out from onset of symptoms no role for baricitinib, only on 5L encourage him to eat and drink, lay on his side or prone flutter valve and incentive spirometer at the bedside try to wean off oxygen, not moving too much the past three days but also not getting worse give lasix 20mg IV qAM low grade temp, with his leukocytosis (lymphoma) could be slightly immunocompromised will start Rocephin 2gm IV daily and Zithromax 500mg daily x 5 days, last day would be 05/08/21 (2) Hypoxia: Plan: Aim O2 sats > 90% requiring 5L today, slightly better than yesterday flutter valve, incentive spirometer Lasix tomorrow (3) B-cell lymphoma: Plan: had a biopsy in the summer of 2020, never followed up with oncology/hematology will work on getting him follow up once recovered from COVID WBC remains > 30k on 05/04 Plan: VTE prophylaxis - Lovenox 40mg SQ daily Diet - regular Disposition - continue COVID unit Admission and Anticipated Discharge Date Admission Date: April 30, 2021 Subjective patient having a better day, no distress at all, breathing better on 5L mask will try Lasix 20mg IV, see how he responds eating better, no diarrhea, no fever he is hoping to get home in a few days Review of Systems Review of Systems: All systems reviewed & are unremarkable except as noted in Subjective Physical Exam Physical Exam: General: well developed, well nourished, no distress Neck: supple, trachea midline, normal thyroid Lungs: clear to auscultation bilaterally, normal respiratory effort, no accessory muscle use, no distress Heart: regular S1 and S2, no murmur, peripheral pulses normal, capillary refill normal, no edema Abdomen: soft, NT, ND, + BS, no hepatomegaly, normal to percussion Extremities: normal in appearance, no cyanosis, no petechiae, strength is 5/5 bilaterally Neuro: awake, cooperative, moves all extremities, no focal motor deficits, CN II-XII intact, sensation in extremities intact, normal speech Skin: warm, dry, no rash, normal turgor Psych: Awake, alert oriented x 3, flat affect Results & Data Results & Data ([facility]) Vital Signs (Past 12 Hours) Vital Signs Temp Pulse Resp BP BP Pulse Ox 05/06/21 23:24 36.7 C 73 18 139/84 96 05/06/21 15:15 36.5 C 68 19 119/75 92 Medications Administered Current Inpatient Medications Acetaminophen (Acetaminophen 325 Mg Tab) 650 mg PO Q4H PRN PRN Reason: pain/fever Stop: 05/30/21 19:57 Last Admin: 05/04/21 07:45 Dose: 650 mg Documented by: Al Hydrox/Mg Hydrox/Simethicone (Aluminum/Magnesium Susp 30 Ml Udc) 30 ml PO Q6H PRN PRN Reason: Dyspepsia Stop: 05/30/21 19:57 Albuterol (Albut/Ipratrop 3mg/0.5mg Neb 3 Ml Vial) 3 ml NEB Q2R PRN PRN Reason: Dyspnea Stop: 05/31/21 18:36 Last Admin: 05/01/21 19:41 Dose: 3 ml Documented by: Azithromycin (Azithromycin 250 Mg Tab) [facility] [place]; Protocol Stop: 05/11/21 10:44 Last Admin: 05/06/21 08:20 Dose: 500 mg Documented by: Docusate Sodium (Docusate Sodium 100 Mg Cap) 100 mg PO BID [facility] Stop: 06/02/21 20:59 Last Admin: 05/06/21 20:01 Dose: Not Given Documented by: Enoxaparin Sodium (Enoxaparin Inj 40 Mg/0.4 Ml Syr) 40 mg SQ QPM [facility] Stop: 05/30/21 20:59 Last Admin: 05/06/21 20:02 Dose: 40 mg Documented by: Guaifenesin/Codeine Phosphate (Guaifenesin/Codeine 100mg/10mg 5ml Udc) 5 ml PO Q6H PRN PRN Reason: Cough Stop: 05/31/21 18:36 Last Admin: 05/04/21 20:39 Dose: 5 ml Documented by: Dexamethasone 6 mg/ Syringe 1.5 mls @ 1 mls/min IV [facility] Stop: 05/31/21 08:59 Last Admin: 05/06/21 08:21 Dose: 1 mls/min Documented by: Ceftriaxone Sodium 2,000 mg/ (Dextrose) 70 mls @ 100 mls/hr IV Q24H [facility]; Protocol Stop: 05/11/21 10:59 Last Infusion: 05/06/21 11:31 Dose: Infused Documented by: Melatonin (Melatonin 3 Mg Tab) 6 mg PO HS PRN PRN Reason: Sleep Stop: 06/03/21 22:32 Last Admin: 05/04/21 22:50 Dose: 6 mg Documented by: Ondansetron HCl (Ondansetron Inj 2 Mg/Ml 2 Ml Vial) 4 mg IV Q6H PRN PRN Reason: Nausea Stop: 05/30/21 19:57 Last Admin: 05/02/21 10:11 Dose: 4 mg Documented by: Polyethylene Glycol (Polyethylene (Miralax) 17 Gm Pack) 17 gm PO DAILY PRN PRN Reason: Constipation Stop: 05/30/21 19:57 PG Care Time/CCT Total # of Minutes Spent Total Time Spent with Patient: Total time spent is greater than 50% in coordination of care (as documented) at patient's floor/unit and/or counseling patient: Coding Level of Care Code 76739 Subseq Hosp Care Lvl 2 Diagnoses 2019 novel coronavirus-infected pneumonia (NCIP) U07.1; J12.82 Hypoxia R09.02 B-cell lymphoma C85.10
[2021-05-07] MEDS: DOCUSATE SODIUM 100 MG CAP PO SCH ×3 (08:37→20:59)
[2021-05-07] MEDS: AZITHROMYCIN 250 MG TAB PO SCH (08:37)
[2021-05-07] MEDS: dexAMETHasone 6 MG in SYRINGE 0 ML IV SCH (08:38)
[2021-05-07 10:35] LABS: Hematocrit (blood only) 36.8 % (42-52); Mean Corpuscular Hemoglobin 31.1 pg (25-34); Mean Corpuscular Hgb Conc 32.6 g/dL (32-36); Mean Corpuscular Volume 95.3 fL (80-100); Mean Platelet Volume 10.2 fL (7.4-10.4); Platelet Count 222 K/uL (130-400); RDW Coefficient of Variation 13.6 % (11.5-14.5); RDW Standard Deviation 47.2 fL (36.4-46.3); Red Blood Count 3.86 M/uL (4.7-6.1)
[2021-05-07 11:01] LABS: BUN Creatinine Ratio 29.4 (10-20); C Reactive Protein 3.89 mg/dl (0-0.29); Calcium 8.9 mg/dl (8.5-10.1); Creatinine Clr Calc Pharmacy 109.2 ml/min; Est GFR (African American) 112.2 ml/min; Est GFR (Non-African American) 96.8 ml/min; Potassium 3.7 mmol/L (3.5-5.1)
[2021-05-07] MEDS: cefTRIAXone SODIUM 2,000 MG in DEXTROSE 5% 50 ML IV SCH (11:01)
[2021-05-07 11:04] LABS: Basophils # (auto) 0.02 K/uL (0-0.2); Basophils % (auto) 0.1 %; Eosinophils # (auto) 0.06 K/uL (0-0.5); Eosinophils % (auto) 0.2 %; Immature Granulocytes # (auto) 0.06 K/uL (0.00-0.02); Immature Granulocytes % (auto) 0.2 %; Lymphocytes # (auto) 27.75 K/uL (1.2-3.4); Lymphocytes % (auto) 80.2 %; Monocytes # (auto) 0.64 K/uL (0.11-0.59); Monocytes % (auto) 1.8 %; Neutrophils # (auto) 6.07 K/uL (1.4-6.5); Neutrophils % (auto) 17.5 %
[2021-05-07] MEDS ORDERED: SODIUM CHLORIDE 0.65% NA SOLN 45 ML (OCEAN) PRN ×2 (13:31→13:34)
--- NOTE | 2021-05-07 13:35 | Hospitalist Progress Note ---
Date of Service May 07, 2021 Assessment & Plan (1) 2019 novel coronavirus-infected pneumonia (NCIP): Plan: IMPROVING cont to wean NC O2 cont pulm toilet Dexamethasone 6mg IV qAM x 10 days, day 8 today was not candidate for Remdesivir or Baricitinib early in admission currently on IV abx due to concern of bacterial superinfection in setting of lymphoma day #4 rocephin day #4 zithromax can likely stop abx tomorrow (2) B-cell lymphoma: Plan: had a biopsy in the summer of 2020, never followed up with oncology/hematology will arrange f/u post-d/c to [facility] (3) Acute respiratory failure with hypoxia: Plan: 2nd to #1 improving Plan: VTE prophylaxis - Lovenox 40mg SQ daily Diet - regular d/c tele - ok to move to [facility] med/surg COVID unit Admission and Anticipated Discharge Date Admission Date: April 30, 2021 Subjective patient doing better energy, cough, dyspnea all improved eating improved denies any new complaints Review of Systems Review of Systems: gen - no fever/chills CV - no cp, no orthopnea pulm - no sputum GI - no N/V/abd pain Physical Exam Physical Exam: gen - looks well, pleasant mouth - MMM neck - no JVD heart - RRR, s1 s2, no murmurs lungs - minimal rales bases, CTA b/l otherwise abd - soft NT ND BS+ ext - no edema, pulses 2+ b/l Results & Data Results & Data ([facility]) Vital Signs (Past 12 Hours) Vital Signs Temp Pulse Resp BP Pulse Ox 05/07/21 12:44 18 96 05/07/21 06:35 37.1 C 65 20 104/69 95 Laboratory Results wbc elevated - 34 cr wnl PG Care Time/CCT Total # of Minutes Spent Total Time Spent with Patient: Total time spent is greater than 50% in coordination of care (as documented) at patient's floor/unit and/or counseling patient: Coding Level of Care Code 28798 Subseq Hosp Care Lvl 2 Diagnoses 2019 novel coronavirus-infected pneumonia (NCIP) U07.1; J12.82 B-cell lymphoma C85.10 Acute respiratory failure with hypoxia J96.01
[2021-05-07] MEDS: ENOXAPARIN INJ 40 MG/0.4 ML SYR SQ SCH (20:59)
[2021-05-08] MEDS: DOCUSATE SODIUM 100 MG CAP PO SCH ×2 (09:55→20:44)
[2021-05-08] MEDS: AZITHROMYCIN 250 MG TAB PO SCH (09:56)
[2021-05-08] MEDS: dexAMETHasone 6 MG in SYRINGE 0 ML IV SCH (09:57)
[2021-05-08] MEDS: cefTRIAXone SODIUM 2,000 MG in DEXTROSE 5% 50 ML IV SCH (11:57)
[2021-05-08] MEDS: ENOXAPARIN INJ 40 MG/0.4 ML SYR SQ SCH (20:44)
--- NOTE | 2021-05-08 22:55 | Hospitalist Progress Note ---
Date of Service May 08, 2021 Assessment & Plan (1) 2019 novel coronavirus-infected pneumonia (NCIP): Plan: IMPROVING very nicely cont to wean NC O2 cont pulm toilet Dexamethasone 6mg IV qAM x 10 days, day 9 today was not candidate for Remdesivir or Baricitinib early in admission currently on IV abx due to concern of bacterial superinfection in setting of lymphoma day #5 rocephin day #5 zithromax stop abx after today's doses (2) B-cell lymphoma: Plan: had a biopsy in the summer of 2020, never followed up with oncology/hematology will arrange f/u post-d/c to [facility] (3) Acute respiratory failure with hypoxia: Plan: 2nd to #1 improving 2-step at discharge Plan: VTE prophylaxis - Lovenox 40mg SQ daily Diet - regular anticipate possible d/c tomorrow would send home with xarelto 10mg daily x 30 days -- high risk of VTE given his lymphoma status and concomitant COVID illness Admission and Anticipated Discharge Date Admission Date: April 30, 2021 Subjective feeling very good today O2 weaned to 2 L during my bedside visit -- sats maintained in mid 90s on such he "got a good shave today, good bowel movement, sat up a while" -- he feels very good today good appetite minimal cough energy improved Review of Systems Review of Systems: gen - no fevers or chills CV - no cp pulm - minimal MANUEL GI - no N/V/D/constipation/pain Physical Exam Physical Exam: gen - looks well, pleasant mouth - MMM neck - no JVD heart - RRR, s1 s2, no murmurs lungs - scant rales bases, CTA b/l otherwise abd - soft NT ND BS+ ext - no edema, pulses 2+ b/l psych - a/o x 3 Results & Data Results & Data ([facility]) Vital Signs (Past 12 Hours) Vital Signs Temp Pulse Resp BP Pulse Ox 05/08/21 22:28 36.8 C 70 18 125/79 95 05/08/21 17:25 95 05/08/21 15:43 36.9 C 71 18 124/79 96 PG Care Time/CCT Total # of Minutes Spent Total Time Spent with Patient: Total time spent is greater than 50% in coordination of care (as documented) at patient's floor/unit and/or counseling patient: Coding Level of Care Code 62392 Subseq Hosp Care Lvl 2 Diagnoses 2019 novel coronavirus-infected pneumonia (NCIP) U07.1; J12.82 B-cell lymphoma C85.10 Acute respiratory failure with hypoxia J96.01
[2021-05-09] MEDS: dexAMETHasone 6 MG in SYRINGE 0 ML IV SCH (07:52)
[2021-05-09] MEDS: DOCUSATE SODIUM 100 MG CAP PO SCH (07:52)
--- NOTE | 2021-05-09 16:51 | Discharge Summary ---
Date of Service date of admission - April 30, 2021 date of discharge - May 09, 2021 Admission HPI Per Admitting Provider Domenic Reardon is a 65 year old male who presents to the ER with COVID-19 symptoms. He is unvaccinated. He reports being unwell for two weeks. Initially with cold symptoms of nasal congestion and sinus pain. Was diagnosed with sinusitis on 04/20 and was treated with doxycycline at that time. He refused the COVID-19 test ordered by the PCP although reports taking a home test that day which was positive. He reports symptoms of fever, chills, nausea, vomiting, coughing, fatigue, mild shortness of breath, diarrhea, loss of taste and smell, poor appetite. Main reason he comes to the ER today is nausea and coughing. In the ER he was hypoxic requiring 4LPm O2 to maintain saturations > 90%. He was referred to medicine for admission and ongoing management of COVID-19 pneumonia. Of note, he was also noted to have a very elevated WBC (lymphocyte) count. He had a biopsy of cervical lymph nodes in November which was concerning for low grade CLL. He denies any symptoms of this prior to COVID-19. They called the hematology office for an appointment but due to no availability at the time of calling they never received a call back and were lost to follow up. Principal Diagnosis Acute hypoxic respiratory failure 2nd to COVID-19 pneumonia Discharge Exam gen - looks well, pleasant mouth - MMM neck - no JVD heart - RRR, s1 s2, no murmurs lungs - scant rales bases, CTA b/l otherwise abd - soft NT ND BS+ ext - no edema, pulses 2+ b/l psych - a/o x 3 Discharge Data Allergies Allergy/AdvReac Type Severity Reaction Status Date / Time No Known Drug Allergies Allergy Unknown Unknown Verified 05/04/21 22:39 Procedures Performed 2-step ambulatory oxygen test - no need for home O2 Ordered Studies Chest CTA 04/30/21 13:10 CHEST CTA for PULMONARY ARTERIES CT DOSE: 431.49 mGy.cm HISTORY: Short of breath. Covid. Hypoxia. TECHNIQUE: Multiaxial CT images of the chest were performed following the intravenous administration of contrast to evaluate the pulmonary arteries. Maximal intensity projection images were also obtained. A dose lowering technique was utilized adhering to the principles of ALARA. COMPARISON STUDY: None. FINDINGS: No fractures within the visualized osseous structures. The visualized liver is unremarkable. The spleen appears mildly enlarged. This may be reactive. Normal thyroid gland. There is mediastinal, bilateral hilar, axillary, and supraclavicular lymphadenopathy. A dominant right paratracheal lymph node measures 2.5 x 1.9 cm. Normal esophagus. The heart is borderline enlarged. There are few prominent anterior diaphragmatic lymph nodes. No pleural or pericardial effusions. Normal caliber thoracic aorta with no evidence for dissection. No filling defects within the pulmonary arteries to suggest a pulmonary embolus. No pneumothorax. Multifocal patchy groundglass and consolidative airspace opacities seen throughout the lungs. This is consistent with a viral pneumonia. This is most pronounced within the left lower lobe. IMPRESSION: 1. No evidence for pulmonary embolus. 2. Multifocal patchy bilateral airspace opacities consistent with a viral pneumonia. 3. Mediastinal, hilar, axillary, and supraclavicular lymphadenopathy. There is also mild splenomegaly. Although potentially reactive to the viral process, these findings are concerning for a lymphoproliferative disorder. Follow-up oncology consultation can be performed once the patient's pneumonia has resolved. ACT 112: Positive. There are findings on this exam that require communication between the performing entity and the patient following Patient Test Result Information Act ([place] Act 112) guidelines. Electronically signed by: Med Judge M.D. 04/30/2021 3:23 PM Chest X-Ray 04/30/21 13:11 XR chest 1V portable HISTORY: weakness COMPARISON: Chest 08/26/2015 FINDINGS: Bibasilar airspace opacities. There are low lung volumes. No pneumothorax. No pleural effusions. The heart is mildly enlarged. IMPRESSION: Bibasilar airspace opacities. This likely represents a pneumonia and could be due to a viral process or aspiration. ACT 112: Negative or not required by law. Electronically signed by: Med Judge M.D. 04/30/2021 1:45 PM Hospital Course (2018 novel coronavirus-infected pneumonia (NCIP): Received a full 10-day course of Dexamethasone while hospitalized. He was never a candidate for Remdesivir or Baricitinib during the stay. He was treated for possible bacterial superinfection in the setting of lymphoma and thus received IV rocephin/zithromax. Peak O2 requirement was 7 L NC O2. O2 was weaned off during the visit and he passed his 2-step ambulatory O2 test. He will complete a 30-day course of Xarelto 10mg daily for DVT prophylaxis post- discharge. 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 He never had heme/onc follow-up, however. He was counseled on the importance of heme/onc consultation post-discharge. He will be referred to the [facility] for ongoing management. (4) DVT prophylaxis: Received lovenox SC while hospitalized. Due to the severity of his illness and concomitant lymphoma he is at higher risk of VTE than others. Thus, at discharge, advised Xarelto 10mg once daily x 30 days. Total Time Total Time Spent Total Time Spent (In Minutes): 40 Discharge Plan Discharge Items Patient Disposition: Home - Self-Care Reason For Visit: COVID-19 PNEUMONIA Discharge Diagnosis: 1. COVID-19 pneumonia - resolving 2. Lymphoma - oncology follow-up needed Activity: As commented below Activity Comment: gradually increase your activities over the next 1-2 weeks Sexual Activity: Wait until after follow-up appointment Exercise/Sports: Wait until after follow-up appointment Driving/Machine Use: No limitations Non-emergency contact: Primary Care Provider and Oncologist Call non-emergency contact if: you have any medication questions, your symptoms worsen and you have a fever Follow-up/Referrals: Khang Bernabe DO [Primary Care Provider] - (see Dr Bernabe within 1 week ) Aleyda Lyman MD [Physician] - ([facility] will be contacting you with a follow-up appointment for your lymphoma ) Diet: Regular Addtl Attending Provider Instructions: Mr Mccoy, You were treated for severe COVID-19 pneumonia over your 10-day stay. You received steroids, antibiotics, oxygen, and other supportive measures. You improved gradually with time. On the day of discharge we did a formal walking test to see if you needed oxygen at home. You passed this test and thus you do not need oxygen. Recommendations - 1. For prevention of DVT blood clots of the legs / blood clots of the lungs while you are recovering from COVID - * take Xarelto 10mg once daily for 30 days, first dose on 05/10/21 * be sure to take the voucher to the pharmacy to receive the medication for free 2. Continue to use your flutter valve and incentive spirometry over the next 7- 10 days. 3. OK to use [id number]-[id number] mucinex up to 1200mg twice daily as needed for cough/congestion. 4. Purchase a pulse oximeter from [facility] or any other pharmacy so that you can monitor your oxygen levels on your finger at home. If your oxygen levels are consistently greater than 90% this is acceptable. If your oxygen levels are consistently LESS THAN 90% please seek medical attention. Recommend checking your oxygen levels 2-3 times each day at various times. 5. Please be sure to listen to your body and rest when needed. You will have a few more weeks of recovery from your illness. When you are tired it is ok to nap. Gradually increase your activities over the next few weeks. You may notice some shortness of breath for a period of time when you do activities. This will ultimately resolve as your lungs heal further. Plan to rest at home for the next few days. 6. Strongly consider a flu shot in about 3-4 weeks. 7. Strongly consider a COVID vaccine in about 3 months. 8. Wear a mask any time you leave your home. 9. Follow-up - * see your family doctor within 1 week * see the Cancer Center within 3-4 weeks for your Lymphoma 10. You are unlikely to be contagious to others at this time. It is ok to re- enter the community as desired. You do not need to isolate at home following discharge. Return to [facility] if - * you have fevers over 100 degrees * you have worsening shortness of breath * you have chest pain * you have oxygen levels on your finger less than 90% * you have bleeding from any location * any other concerns It was our pleasure caring for you at [facility]! Continue to feel better, Dr Estrella Addtl Patient Registration Supervisor Provider Instructions: Anticoagulation (blood thinner) Medication Instructions: While recovering from COVID we are recommending a blood thinner to take for 30 days. Blood thinners/anticoagulants will thin your blood to help prevent DVT blood clots of the legs and blood clots of the lungs. Your blood thinner is "XARELTO." * You should take your medication exactly as directed. * Never skip a dose. * Never take a double dose. If you miss a dose, take it as soon as you remember. Call your Primary Care doctor if you experience any of the following: * Swelling or Pain in your leg * Sudden, continuous pain deep in a muscle * Pain that worsens when you are active or when you stand still for a long time * Chest Pain * Sudden Shortness of Breath * Rapid or pounding heart beat * Fainting * Dizziness * Cough with blood or bloody sputum * Sweating more than normal * Bruises * Heavy or uncontrolled bleeding * Blood in your urine, stool or vomit * Black or tarry stools * Severe nose bleeding Caring for Your Self at Home: * Avoid sitting, standing or lying down for long periods without moving your legs and feet * When traveling by car, stop to get out and move around at least once every 3 hours * On long airplane, train or bus rides, get up and move around when possible * If you can't get up, wiggle your toes and tighten your calves to keep your blood moving Pending Studies at Discharge: No Stand-Alone Forms: My [facility] [employer], Smoking Cessation Medications and DC Order Prescriptions: New Xarelto 10 mg tablet 10 mg PO DAILY 30 Days Qty: 30 RF: 0 Discontinued doxycycline hyclate 100 mg tablet 100 mg PO BID Qty: 20 RF: 0 ibuprofen 200 mg Tablet 800 mg PO Q6H PRN (Reason: Pain) RF: 0 Discharge Orders: Discharge Order (Routine); Ordered 05/09/21 Ordered By: Connor Drew/Other Patient Handouts: How COVID-19 Spreads, 2019-nCoV, COVID-19 Prevention, COVID-19 Home Care, Preventing the Spread of ... Admission Data Admit Date/Time: 04/30/21 16:25 Attending Provider: Connor Estrella Admit Provider: Connor Tony Primary Care Provider: Khang Bernabe Other Providers: Connor Tony ; Rodney Foster V. Other Interventions: Discharge Summary Assessment (RN) Last Done: 05/09/21 16:44 Coding Level of Care Code D/C DAY MANAGEMENT >30 MINS Diagnoses 2019 novel coronavirus-infected pneumonia (NCIP) U07.1; J12.82 B-cell lymphoma C85.10 Acute respiratory failure with hypoxia J96.01 DVT prophylaxis Z29.9
== END 2021-05-09 17:41 | disposition home or self-care (01) | DRG 177 ==
LOC: ED 12:51 → SUATTDRO 16:25 → EDINP 16:25 → 2W 05-02 14:22 → 3W 05-07 15:59
DX: C85.10 Unspecified B-cell lymphoma, unspecified site; R19.7 Diarrhea, unspecified; R11.2 Nausea with vomiting, unspecified; J12.82 Pneumonia due to coronavirus disease 2019; A49.9 Bacterial infection, unspecified; R43.8 Other disturbances of smell and taste; U07.1 COVID-19; J96.01 Acute respiratory failure with hypoxia

== ENCOUNTER 2023-09-16 14:38 | Inpatient (IN) ==
--- NOTE | 2023-09-16 15:14 | Emergency Department Note ---
Impression & Plan Anemia, Chronic lymphocytic leukemia, Thrombocytopenia, MANUEL (dyspnea on exertion) ED Provider Note NAME: JANINE SANTIZO Sr AGE: 68 SEX: M : 1955 ARRIVES VIA: Walk-In INFORMANT: Patient, ED PROVIDER(S): Rc Herrera DO CHIEF COMPLAINT: Shortness of breath HPI: The patient is a 68-year-old male who presented to the emergency department for an evaluation of shortness of breath. The patient's been having symptoms of the course the last 6 days. He was seen by his family doctor for the symptoms. He had some testing done on Sunday. He was not able to have blood work done. The patient denies having any fever. He denies having any cough. He denies having any lower extremity swelling or pain. He has been noticing shortness of breath especially with exertion. His has been checking his pulse ox and noted it was low. He denies having any black or tarry stools. He denies having any vomiting. The patient came to emergency department today because he was doing yard work and realized that if symptoms were worsening. ROS: See above HPI for pertinent positives & negatives. A total of 10 systems reviewed and were otherwise negative. PAST MEDICAL HISTORY: See Below PAST SURGICAL HISTORY: See Below FAMILY HISTORY: See Below SOCIAL HISTORY: See Below HOME MEDICATIONS: See Below ALLERGIES: See Below VITALS: See Below PHYSICAL EXAMINATION: GENERAL: Patient is awake alert in no acute distress patient is resting comfortably and showing no signs of anxiety EYES: The conjunctivae are pale. The pupils are round and reactive. EARS, NOSE, MOUTH AND THROAT: The nose is without any evidence of any deformity. NECK: The neck is nontender and supple. RESPIRATORY: Normal respiratory effort is noted there is no evidence of wheezing rhonchi or rales CARDIOVASCULAR: Regular rate and rhythm noted there no murmurs rubs or gallops normal S1 normal S2. GASTROINTESTINAL: The abdomen is soft. Abdomen is nontender. MUSCULOSKELETAL/EXTREMITIES: There is no evidence of gross deformity full range of motion is noted in the hips and shoulders. SKIN: There is no obvious evidence of any rash. There are no petechiae, pallor or cyanosis noted. NEUROLOGIC: Patient is awake alert and oriented x3 MEDICAL DECISION MAKING: The patient is a 68-year-old male who has a history of CLL who presented to the emergency department for an evaluation of difficulty breathing. The patient has been experiencing difficulty breathing especially with exertion over the course last week. He was seen by his family doctor and he was started on antibiotic. The patient was negative for COVID at that time. The patient denies having any cough or fever. The patient does have a history of elevated white blood cell count has never had severe anemia although his hemoglobin has been trending down. The patient was found to have a very severe anemia in the emergency department. He was sent for type and screen. I discussed the patient's laboratory and radiographic studies with him. I discussed his condition with the on-call [facility] hospitalist as well as the on-call rail transit operator. The patient is most likely going to receive a blood transfusion. Triage Nursing notes reviewed. Prior medical records reviewed Vital Signs: reviewed and remarkable for no significant abnormalities Differential diagnosis: Reactive airway disease, pneumonia, pneumothorax, COPD, CHF, infections, cardiac ischemia, pulmonary embolism, musculoskeletal, gastrointestinal, as well as other pathologies. ER treatment provided: See below Diagnostics interpreted by me: ECG: EKG was obtained in the emergency department. My interpretation is normal sinus rhythm at 88 bpm. There is no ectopy. There is no acute ST segment abnormalities noted. This was compared to a tracing from April 30, 2021. No changes were noted Cardiac Monitoring: An order was placed for continuous cardiac monitoring. The monitor shows a rate of 85 bpm with sinus rhythm. Laboratory studies: As stated above and show below. Imaging studies: See below. Radiographic imaging was reviewed by myself Consultation(s): I discussed this case with Dr. Tony who is on-call for the [facility] group. I discussed this case with Dr. Rahman who is on-call for oncology Past Med/Surg History Medical History Acute respiratory failure with hypoxia 2018 novel coronavirus-infected pneumonia (NCIP) B-cell lymphoma Somatic dysfunction of pelvic region Somatic dysfunction of rib Somatic dysfunction of cervical region Somatic dysfunction of lumbar region Somatic dysfunction of thoracic region Incarcerated right inguinal hernia Proctitis Kidney infection Fall 2018 Surgical History History of colonoscopy History of appendectomy H/O right inguinal hernia repair Family History Father Blood transfusion reaction patient's father (age 66) after having a reaction to platelet transfusion following prostatectomy. Prostate cancer Brother , 06/27/2020 at age 67 Brain tumor, Onset Age: 66 Diagnosed with malignant brain tumor last February 2020 Mother Heart disease Other No family history of adverse response to anesthesia No family history of bleeding disorder No pertinent family history in first degree relatives Denies family history of Ovarian cancer Myocardial infarction Breast cancer Colorectal cancer Social History Smoking Status: Never smoker Second Hand Exposure: No; Do You Dip or Chew Tobacco: No; Hx Alcohol Use: No Hx Substance Use: No Preferred Language: Tristanian Communication Ability: Effective Hearing Ability: Hard of Hearing Computer 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 How many Children do You have: 3 Feels Safe at Home: Yes Childhood Exposure to Second-Hand Smoke: Yes Diet: regular caffeine: Yes (Coffee ) Dental Care, Regularly: Yes Physical Activity Frequency: Daily Physical Activity Frequency Comment: Walking, daily housework/cleaning Seatbelt Use: always Sunscreen Use: No Assistive Devices: Glasses Allergies Allergies Allergy/AdvReac Type Severity Reaction Status Date / Time No Known Drug Allergies Allergy Unknown Unknown Verified 09/16/23 16:09 Home Meds Home Medications Medication Instructions Recorded Confirmed ascorbate calcium (vitamin C) 500 500 mg PO Q OTHER DAY 07/17/22 09/16/23 mg tablet [id number]-mharrcayl-[id number] 333 mg-133 1 tab PO Q OTHER DAY 07/17/22 09/16/23 mg-5 mg tablet cholecalciferol (vitamin D3) 25 25 mcg PO Q OTHER DAY 07/17/22 09/16/23 mcg (1,000 unit) capsule ferrous sulfate 325 mg (65 mg 325 mg PO Q OTHER DAY 07/17/22 09/16/23 iron) tablet (Feosol) lactobacillus combination no.4 3 3,000 mmu cells PO DAILY 07/17/22 09/16/23 billion cell capsule (Probiotic) mecobalamin (vitamin B12) 1,000 1,000 mcg PO DAILY 07/17/22 09/16/23 mcg chewable tablet omega-3 fatty acids 1,000 mg 1,000 mg PO DAILY 07/17/22 09/16/23 capsule vitamin A 2,400 mcg capsule 2,400 mcg PO DAILY 07/17/22 09/16/23 cacspagfp-[id number]-[id number]-man-zinc tablet 1 tab PO DAILY 06/20/23 09/16/23 Previous Rx's Medication Instructions Recorded cyclobenzaprine 10 mg tablet 10 mg PO TID PRN muscle spasm #60 06/20/23 tabs azithromycin 250 mg tablet See Rx Instructions PO .COMPLEX #6 09/14/23 tabs prednisone 10 mg tablet 40 mg (4 x 10 mg) PO DAILY 7 days 09/14/23 #28 tabs Results & Data (ED) Vital Signs Vital Signs - 24 hr 09/16/23 14:50 09/16/23 15:21 09/16/23 15:21 Temperature 36.8 C Temperature Source Temporal Artery Scan Pulse Rate 101 H Pulse Rate [Apical] Pulse Rate from SpO2 Sensor Pulse Rhythm Pulse Rhythm [Apical] Pulse Strength [Apical] Respiratory Rate 18 Respiratory Effort / Characteristics Non-Labored Spontaneous Short of Breath Respiratory Depth Normal Normal Respiratory Pattern Regular Blood Pressure 120/73 Blood Pressure [Right Arm] Blood Pressure Mean 88 Blood Pressure Mean [Right Arm] Blood Pressure Position Sitting Pulse Oximetry 96 92 Oxygen Delivery Method Room Air Room Air Room Air Oxygen Flow Rate Sepsis Recent Fever Within 48 Hours No Sepsis New/Unexplained Change in Mental Status N/A Sepsis Action Taken by Nursing No Action Required Oxygen Flow Rate - Titration Pulse Oximetry Post Tiitration 09/16/23 15:21 09/16/23 15:21 09/16/23 15:30 Temperature Temperature Source Pulse Rate 87 77 Pulse Rate [Apical] 88 Pulse Rate from SpO2 Sensor 78 Pulse Rhythm Regular Pulse Rhythm [Apical] Regular Pulse Strength [Apical] Normal Respiratory Rate 24 24 17 Respiratory Effort / Characteristics Non-Labored Spontaneous Respiratory Depth Normal Respiratory Pattern Regular Blood Pressure Blood Pressure [Right Arm] 105/66 Blood Pressure Mean Blood Pressure Mean [Right Arm] 79 Blood Pressure Position Pulse Oximetry 91 91 98 Oxygen Delivery Method Room Air Room Air Nasal Cannula Oxygen Flow Rate 2 Sepsis Recent Fever Within 48 Hours Sepsis New/Unexplained Change in Mental Status Sepsis Action Taken by Nursing Oxygen Flow Rate - Titration Pulse Oximetry Post Tiitration 09/16/23 15:33 09/16/23 15:35 09/16/23 15:51 Temperature Temperature Source Pulse Rate 86 85 Pulse Rate [Apical] Pulse Rate from SpO2 Sensor 83 Pulse Rhythm Pulse Rhythm [Apical] Pulse Strength [Apical] Respiratory Rate 19 Respiratory Effort / Characteristics Respiratory Depth Respiratory Pattern Blood Pressure 114/66 Blood Pressure [Right Arm] Blood Pressure Mean 82 Blood Pressure Mean [Right Arm] Blood Pressure Position Pulse Oximetry 88 L 96 Oxygen Delivery Method Room Air Nasal Cannula Oxygen Flow Rate 2 Sepsis Recent Fever Within 48 Hours Sepsis New/Unexplained Change in Mental Status Sepsis Action Taken by Nursing Oxygen Flow Rate - Titration 2 Pulse Oximetry Post Tiitration 96 Home Medications Current Medication List: was personally reviewed by me Laboratory Data Attestation: I reviewed the patient's lab results. 09/16/23 15:17 09/16/23 15:17 Lab Results 09/16/23 09/16/23 09/16/23 Range/Units 15:15 15:17 16:00 WBC 133.12 H* (4.8-10.8) K/ul RBC 1.80 L (4.70-6.10) M/uL Hgb 5.9 L* (14.0-18.0) g/dl Hct 20.7 L* (42.0-52.0) % MCV 115.0 H (80.0-100.0) fL MCH 32.8 (25.0-34.0) pg MCHC 28.5 L (32.0-36.0) g/dL RDW Std Deviation 69.9 H (36.4-46.3) fL RDW Coeff of Ho 18.6 H (11.5-14.5) % Plt Count 46 L (130-400) K/uL MPV 10.7 (9.4-12.4) fL Immature Gran % (Auto) 0.2 % Neut % (Auto) 2.9 % Lymph % (Auto) 93.3 % Bonner % (Auto) 3.5 % Eos % (Auto) 0.0 % Baso % (Auto) 0.1 % Neut # (Auto) 3.71 (1.40-6.50) K/uL Lymph # (Auto) 124.18 H (1.20-3.40) K/uL Bonner # (Auto) 4.68 H (0.11-0.59) K/uL Eos # (Auto) 0.03 (0.00-0.50) K/uL Baso # (Auto) 0.19 (0.00-0.20) K/uL Immature Gran # (Auto) 0.33 H (0.01-0.20) K/uL Absolute Nucleated RBC 0.05 (0.00-0.12) K/uL Platelet Estimate Decreased L (Normal) Polychromasia 1+ Hypochromasia Present Anisocytosis Present Macrocytosis Present PT 11.6 (9.0-12.0) Seconds INR 1.1 (0.9-1.1) APTT 23 (21-31) Seconds PTT Ratio 0.8 D-Dimer 190 (0-500) ug/L FEU Sodium 137 (136-145) mmol/L Potassium 5.0 (3.5-5.1) mmol/L Chloride 108 H (98-107) mmol/L Carbon Dioxide 23 (21-32) mmol/L Anion Gap 6 (3-11) BUN 28 H (6-23) mg/dl Creatinine 0.99 (0.6-1.4) mg/dl Est Cr Clr Drug Dosing 78.4 ml/min Est GFR ( Amer) 90.3 ml/min Est GFR (Non-Af Amer) 77.9 ml/min BUN/Creatinine Ratio 28.3 H (10-20) Glucose 133 H (70-99(Fasting)) mg/dl Calcium 8.7 (8.6-10.3) mg/dl Magnesium 1.9 (1.7-2.4) mg/dl Total Bilirubin 1.1 H (0.2-1.0) mg/dl AST 16 (13-39) U/L ALT 9 (7-52) U/L Alkaline Phosphatase 90 (34-104) U/L Troponin I High Sens 7.4 (0-20) pg/ml Total Protein 6.0 (6.0-8.3) gm/dl Albumin 4.5 (3.4-5.0) gm/dl Globulin 1.5 L (2.5-4.0) gm/dl Albumin/Globulin Ratio 3.0 H (0.9-2) Urine Color Yellow Urine Appearance Clear (Clear) Urine pH 5.5 (4.5-7.5) Ur Specific [place] 1.018 (1.000-1.030) Urine Protein Negative (Negative) Urine Glucose (UA) Negative (Negative) Urine Ketones Negative (Negative) Urine Blood Negative (Negative) Urine Nitrite Negative (Negative) Urine Bilirubin Negative (Negative) Urine Urobilinogen Negative (Negative) Ur Leukocyte Esterase Negative (Negative) Blood Type O Positive Blood Type Recheck Antibody Screen POSITIVE A Crossmatch See Detail 09/16/23 Range/Units 16:44 WBC (4.8-10.8) K/ul RBC (4.70-6.10) M/uL Hgb (14.0-18.0) g/dl Hct (42.0-52.0) % MCV (80.0-100.0) fL MCH (25.0-34.0) pg MCHC (32.0-36.0) g/dL RDW Std Deviation (36.4-46.3) fL RDW Coeff of Ho (11.5-14.5) % Plt Count (130-400) K/uL MPV (9.4-12.4) fL Immature Gran % (Auto) % Neut % (Auto) % Lymph % (Auto) % Bonner % (Auto) % Eos % (Auto) % Baso % (Auto) % Neut # (Auto) (1.40-6.50) K/uL Lymph # (Auto) (1.20-3.40) K/uL Bonner # (Auto) (0.11-0.59) K/uL Eos # (Auto) (0.00-0.50) K/uL Baso # (Auto) (0.00-0.20) K/uL Immature Gran # (Auto) (0.01-0.20) K/uL Absolute Nucleated RBC (0.00-0.12) K/uL Platelet Estimate (Normal) Polychromasia Hypochromasia Anisocytosis Macrocytosis PT (9.0-12.0) Seconds INR (0.9-1.1) APTT (21-31) Seconds PTT Ratio D-Dimer (0-500) ug/L FEU Sodium (136-145) mmol/L Potassium (3.5-5.1) mmol/L Chloride (98-107) mmol/L Carbon Dioxide (21-32) mmol/L Anion Gap (3-11) BUN (6-23) mg/dl Creatinine (0.6-1.4) mg/dl Est Cr Clr Drug Dosing ml/min Est GFR ( Amer) ml/min Est GFR (Non-Af Amer) ml/min BUN/Creatinine Ratio (10-20) Glucose (70-99(Fasting)) mg/dl Calcium (8.6-10.3) mg/dl Magnesium (1.7-2.4) mg/dl Total Bilirubin (0.2-1.0) mg/dl AST (13-39) U/L ALT (7-52) U/L Alkaline Phosphatase (34-104) U/L Troponin I High Sens (0-20) pg/ml Total Protein (6.0-8.3) gm/dl Albumin (3.4-5.0) gm/dl Globulin (2.5-4.0) gm/dl Albumin/Globulin Ratio (0.9-2) Urine Color Urine Appearance (Clear) Urine pH (4.5-7.5) Ur Specific [place] (1.000-1.030) Urine Protein (Negative) Urine Glucose (UA) (Negative) Urine Ketones (Negative) Urine Blood (Negative) Urine Nitrite (Negative) Urine Bilirubin (Negative) Urine Urobilinogen (Negative) Ur Leukocyte Esterase (Negative) Blood Type Blood Type Recheck O Positive Antibody Screen Crossmatch Imaging Data Attestation: I personally reviewed and interpreted this imaging study as follows: My Impression: 1 view chest x-ray was obtained in the emergency department. My interpretation is no free air or definite infiltrate, final report below. Radiologist's Impression: Chest X-Ray 09/16/23 15:08 XR chest 1V portable CLINICAL HISTORY: Dyspnea COMPARISON STUDY: Chest CT September 19, 2021. Chest radiograph September 14, 2023. FINDINGS: Lung volumes are mildly diminished. Minimal left basilar opacity favors atelectasis. There is no pneumothorax or pleural effusion. Cardiac size is normal. Mediastinal contours are normal. There is no evidence for pulmonary edema. IMPRESSION: No acute cardiopulmonary findings. ACT 112: Negative or not required by law. Electronically signed by: Gerry Lennon M.D. 09/16/2023 3:53 PM Discharge Plan Visit Data Chief Complaint: Shortness of Breath/Dyspnea Stated Complaint: DIFFICULTY BREATHING, WEAKNESS IN EXTREMITIES ED Provider: Rc Herrera Discharge Problem: Anemia, Chronic lymphocytic leukemia, Thrombocytopenia, MANUEL (dyspnea on exertion) Patient Disposition: Being Evaluated by Hospitalist Forms Stand Alone Forms: My [facility] Prescriptions Prescriptions: No Action ascorbate calcium (vitamin C) 500 mg tablet 500 mg PO Q OTHER DAY omega-3 fatty acids 1,000 mg capsule 1,000 mg PO DAILY vitamin A 2,400 mcg capsule 2,400 mcg PO DAILY mecobalamin (vitamin B12) 1,000 mcg tablet,chewable 1,000 mcg PO DAILY cholecalciferol (vitamin D3) 25 mcg (1,000 unit) capsule 25 mcg PO Q OTHER DAY ferrous sulfate [Feosol] 325 mg (65 mg iron) tablet 325 mg PO Q OTHER DAY [id number]-uwug 333-133-5 mg tablet 1 tab PO Q OTHER DAY Probiotic 3 billion cell capsule 3,000 mmu cells PO DAILY Rx Instructions: administer with a meal [id number]-ccmuy-phu-man-zinc Tablet 1 tab PO DAILY Rx Instructions: orally daily; cyclobenzaprine 10 mg tablet 10 mg PO TID PRN (Reason: muscle spasm) Qty: 60 3RF prednisone 10 mg tablet 40 mg PO DAILY 7 Days Qty: 28 0RF azithromycin 250 mg tablet See Rx Instructions PO .COMPLEX Qty: 6 0RF Rx Instructions: For 250 mg dose pack: take 500 mg today (day 1), then 250 mg for 4 days (days 2-5) PO Referrals Referrals: Khang Bernabe DO [Primary Care Provider] - Discharge Problem: Anemia Qualifiers: Anemia type: unspecified type Qualified Code(s): D64.9 - Anemia, unspecified
[2023-09-16 15:32] LABS: Appearance Urine Clear (Clear); Bilirubin Urine Negative (Negative); Blood Urine Negative (Negative); Color Urine Yellow; Glucose Urine UA Negative (Negative); Ketones Urine Negative (Negative); Leukocyte Esterase Urine Negative (Negative); Nitrite Urine Negative (Negative); Protein Urine Negative (Negative); Specific Gravity Urine 1.018 (1.000-1.030); Urobilinogen Urine Negative (Negative); pH Urine 5.5 (4.5-7.5)
[2023-09-16 15:52] LABS: Alanine Aminotransferase 9 U/L (7-52); Albumin Level 4.5 gm/dl (3.4-5.0); Alkaline Phosphatase 90 U/L (34-104); Anion Gap 6 (3-11); Aspartate Aminotransferase 16 U/L (13-39); BUN Creatinine Ratio 28.3 (10-20); Bilirubin,Total 1.1 mg/dl (0.2-1.0); Blood Urea Nitrogen 28 mg/dl (6-23); Calcium 8.7 mg/dl (8.6-10.3); Carbon Dioxide 23 mmol/L (21-32); Chloride 108 mmol/L (98-107); Creatinine Clr Calc Pharmacy 78.4 ml/min; Est GFR (African American) 90.3 ml/min; Est GFR (Non-African American) 77.9 ml/min; Globulin 1.5 gm/dl (2.5-4.0); Glucose 133 mg/dl (70-99(Fasting)); Magnesium 1.9 mg/dl (1.7-2.4); Sodium 137 mmol/L (136-145)
[2023-09-16 15:54] LABS: Hematocrit (blood only) 20.7 % (42.0-52.0); Hemoglobin 5.9 g/dl (14.0-18.0); Mean Corpuscular Hemoglobin 32.8 pg (25.0-34.0); Mean Corpuscular Hgb Conc 28.5 g/dL (32.0-36.0); RDW Coefficient of Variation 18.6 % (11.5-14.5); RDW Standard Deviation 69.9 fL (36.4-46.3); White Blood Count 133.12 K/ul (4.8-10.8)
--- NOTE | 2023-09-16 15:55 | XRay Report ---
XR chest 1V portable CLINICAL HISTORY: Dyspnea COMPARISON STUDY: Chest CT September 19, 2021. Chest radiograph September 14, 2023. FINDINGS: Lung volumes are mildly diminished. Minimal left basilar opacity favors atelectasis. There is no pneumothorax or pleural effusion. Cardiac size is normal. Mediastinal contours are normal. Ther e is no evidence for pulmonary edema. IMPRESSION: No acute cardiopulmonary findings. ACT 112: Negative or not required by law. Electronically signed by: Gerry Lennon M.D. 09/16/2023 3:53 PM
[2023-09-16 15:59] LABS: Troponin I High Sensitivity 7.4 pg/ml (0-20)
[2023-09-16 16:02] LABS: D Dimer 190 ug/L FEU (0-500); INR 1.1 (0.9-1.1); Partial Thromboplastin Ratio 0.8; Partial Thromboplastin Time 23 Seconds (21-31); Prothrombin Time 11.6 Seconds (9.0-12.0)
[2023-09-16 16:05] LABS: Anisocytosis Present; Basophils # (auto) 0.19 K/uL (0.00-0.20); Basophils % (auto) 0.1 %; Eosinophils # (auto) 0.03 K/uL (0.00-0.50); Hypochromasia Present; Immature Granulocytes # (auto) 0.33 K/uL (0.01-0.20); Immature Granulocytes % (auto) 0.2 %; Lymphocytes # (auto) 124.18 K/uL (1.20-3.40); Lymphocytes % (auto) 93.3 %; Macrocytosis Present; Mean Platelet Volume 10.7 fL (9.4-12.4); Monocytes # (auto) 4.68 K/uL (0.11-0.59); Monocytes % (auto) 3.5 %; Neutrophils # (auto) 3.71 K/uL (1.40-6.50); Neutrophils % (auto) 2.9 %; Nucleated RBC # (auto) 0.05 K/uL (0.00-0.12); Platelet Count 46 K/uL (130-400); Platelet Estimate Decreased (Normal); Polychromasia 1+
[2023-09-16] MEDS ORDERED: SODIUM CHLORIDE 0.9% 250 ML IV PRN (16:55)
--- NOTE | 2023-09-16 17:26 | History & Physical Report ---
Date of Service September 16, 2023 Assessment & Plan (1) Symptomatic anemia: Plan: Suspected from progression of underlying CLL - planning on following up with Dr Foster B12, folate, retic, iron studies, LDH to assess for alternative causes Transfuse irradiated packed RBC to aim Hgb > 7, or asymptomatic - multiple antibodies therefore may take some time for this to arrive from outside facility Consult hematology Stop prednisone and azithromycin given better explanation for this symptoms with anemia. (2) CLL (chronic lymphocytic leukemia): Plan: Elevated lymphocytes, Thrombocytopenia, anemia consistent with progression of CLL Consult hematology Plan VTE Prophylaxis - deferred due to symptomatic anemia Diet - regular Disposition - admit to med/tele Admission and Anticipated Discharge Date Admission Date: September 16, 2023 History of Present Illness Chief Complaint: Shortness of breath Primary Care Provider: Khang Bernabe DO Domenic Reardon is a 68-year-old male with CLL who presents to the ER with shortness of breath, fatigue and pain in shoulders and neck. He reports symptoms started about a week ago. Worse on exertion. He was seen by his PCP on Sunday and given steroids and azithromycin for possible infection ?sinuses, labs ordered and had planned to get these on Sunday. However today he was pushing his mower and his symptoms were more severe therefore decided to come to the ER. No dizziness, lightheadedness or chest pain. He denies any fever, chills, cough, nasal congestion, abdominal pain, diarrhea, urinary symptoms. Allergies Allergy/AdvReac Type Severity Reaction Status Date / Time No Known Drug Allergies Allergy Unknown Unknown Verified 09/16/23 16:09 Home Medications Medication Instructions Recorded Confirmed Type ascorbate calcium (vitamin C) 500 500 mg PO Q OTHER DAY 07/17/22 09/16/23 History mg tablet gpffypy-lephzieja-qruf 333 mg-133 1 tab PO Q OTHER DAY 07/17/22 09/16/23 History mg-5 mg tablet cholecalciferol (vitamin D3) 25 25 mcg PO Q OTHER DAY 07/17/22 09/16/23 History mcg (1,000 unit) capsule ferrous sulfate 325 mg (65 mg 325 mg PO Q OTHER DAY 07/17/22 09/16/23 History iron) tablet (Feosol) lactobacillus combination no.4 3 3,000 mmu cells PO DAILY 07/17/22 09/16/23 History billion cell capsule (Probiotic) mecobalamin (vitamin B12) 1,000 1,000 mcg PO DAILY 07/17/22 09/16/23 History mcg chewable tablet omega-3 fatty acids 1,000 mg 1,000 mg PO DAILY 07/17/22 09/16/23 History capsule vitamin A 2,400 mcg capsule 2,400 mcg PO DAILY 07/17/22 09/16/23 History cyclobenzaprine 10 mg tablet 10 mg PO TID PRN muscle spasm #60 06/20/23 09/16/23 Rx tabs immolhebx-ymbmk-hbn-man-zinc tablet 1 tab PO DAILY 06/20/23 09/16/23 History azithromycin 250 mg tablet See Rx Instructions PO .COMPLEX #6 09/14/23 09/16/23 Rx tabs prednisone 10 mg tablet 40 mg (4 x 10 mg) PO DAILY 7 days 09/14/23 09/16/23 Rx #28 tabs Past Med/Surg History Medical History Acute respiratory failure with hypoxia 2018 novel coronavirus-infected pneumonia (NCIP) B-cell lymphoma Somatic dysfunction of pelvic region Somatic dysfunction of rib Somatic dysfunction of cervical region Somatic dysfunction of lumbar region Somatic dysfunction of thoracic region Incarcerated right inguinal hernia Proctitis Kidney infection Fall 2018 Surgical History History of colonoscopy History of appendectomy H/O right inguinal hernia repair Family History Father Blood transfusion reaction patient's father (age 66) after having a reaction to platelet transfusion following prostatectomy. Prostate cancer Brother , 06/27/2020 at age 67 Brain tumor, Onset Age: 66 Diagnosed with malignant brain tumor last February 2020 Mother Heart disease Other No family history of adverse response to anesthesia No family history of bleeding disorder No pertinent family history in first degree relatives Denies family history of Ovarian cancer Myocardial infarction Breast cancer Colorectal cancer Social History Smoking Status: Never smoker Second Hand Exposure: No; Do You Dip or Chew Tobacco: No; Hx Alcohol Use: Yes Alcohol type: beer Hx Substance Use: No Preferred Language: Romanian Communication Ability: Effective Hearing Ability: Hard of Hearing [employer] Required: No Beliefs That Will Affect Care: None marital status: Current Living Situation: Significant Other Current Living Situation Comment: Lives with girlfriend - Marcie Thakkar. 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 How many Children do You have: 3 Other Information That Helps Us Care for You: No Feels Safe at Home: Yes Safety Concerns: Feels Safe At This Time Childhood Exposure to Second-Hand Smoke: Yes Diet: regular caffeine: Yes (Coffee ) Dental Care, Regularly: Yes Physical Activity Frequency: Daily Physical Activity Frequency Comment: Walking, daily housework/cleaning Seatbelt Use: always Sunscreen Use: No Assistive Devices: Denture - Upper, Denture - Lower and Glasses Review of Systems Review of Systems: All systems reviewed & are unremarkable except as noted in HPI & below Physical Exam Constitutional: WD/WN, vitals as above Eyes: + anicteric sclerae; normal pupil size ENMT: external ear and nose normal, oropharynx normal Respiratory: normal respiratory effort, lungs clear to auscultation Cardiovascular: RRR, no murmur, no edema Gastrointestinal (Abdomen): normal bowel sounds, soft, nontender, no hepatosplenomegaly Musculoskeletal: no cyanosis or clubbing, extremities motor strength 5/5 Skin: no rashes, warm and dry Neurologic: moves all extremities and awake; not confused Psychiatric: A+Ox3, euthymic affect Results & Data Results & Data Vital Signs (Past 12 Hours) Vital Signs Temp Pulse Pulse Resp BP BP Pulse Ox 09/16/23 15:51 85 19 114/66 96 09/16/23 15:35 88 L 09/16/23 15:33 86 09/16/23 15:30 77 17 98 09/16/23 15:21 87 24 91 09/16/23 15:21 88 24 105/66 91 09/16/23 15:21 92 09/16/23 15:21 09/16/23 14:50 36.8 C 101 H 18 120/73 96 O2 Del Method O2 Flow Rate 09/16/23 15:51 Nasal Cannula 2 09/16/23 15:35 Room Air 09/16/23 15:33 09/16/23 15:30 Nasal Cannula 2 09/16/23 15:21 Room Air 09/16/23 15:21 Room Air 09/16/23 15:21 Room Air 09/16/23 15:21 Room Air 09/16/23 14:50 Room Air Laboratory Results Abnormal lab results 09/16/23 09/16/23 Range/Units 15:17 16:00 WBC 133.12 H* (4.8-10.8) K/ul RBC 1.80 L (4.70-6.10) M/uL Hgb 5.9 L* (14.0-18.0) g/dl Hct 20.7 L* (42.0-52.0) % MCV 115.0 H (80.0-100.0) fL MCHC 28.5 L (32.0-36.0) g/dL RDW Std Deviation 69.9 H (36.4-46.3) fL RDW Coeff of Ho 18.6 H (11.5-14.5) % Plt Count 46 L (130-400) K/uL Reticulocyte % (Auto) 2.42 H (0.50-2.00) % Lymph # (Auto) 124.18 H (1.20-3.40) K/uL [place] # (Auto) 4.68 H (0.11-0.59) K/uL Immature Gran # (Auto) 0.33 H (0.01-0.20) K/uL Platelet Estimate Decreased L (Normal) Chloride 108 H (98-107) mmol/L BUN 28 H (6-23) mg/dl BUN/Creatinine Ratio 28.3 H (10-20) Glucose 133 H (70-99(Fasting)) mg/dl Iron 276 H (35-175) mcg/dl Unsaturated IBC < 55 L (155-355) mcg/dl Total Bilirubin 1.1 H (0.2-1.0) mg/dl Globulin 1.5 L (2.5-4.0) gm/dl Albumin/Globulin Ratio 3.0 H (0.9-2) Antibody Screen POSITIVE A Crossmatch See Detail Diagnostic Findings XR chest 1V portable CLINICAL HISTORY: Dyspnea COMPARISON STUDY: Chest CT September 19, 2021. Chest radiograph September 14, 2023. FINDINGS: Lung volumes are mildly diminished. Minimal left basilar opacity favors atelectasis. There is no pneumothorax or pleural effusion. Cardiac size is normal. Mediastinal contours are normal. There is no evidence for pulmonary edema. IMPRESSION: No acute cardiopulmonary findings. Medications Administered ER medications given: None ECG Rate (beats per minute): 88 Rhythm: normal sinus Findings: no acute ischemic change Comparison ECG Date: no prior available Code Status & VTE Plan Code Status Full VTE Prophylaxis Plan VTE Prophylaxis will be ordered: Yes PG Care Time/CCT Total # of Minutes Spent Total Time Spent with Patient: Total time spent is greater than 50% in coordination of care (as documented) at patient's floor/unit and/or counseling patient: Coding Level of Care Code 30578 INT INP/OBS CARE 2MIN Diagnoses Symptomatic anemia D64.9 CLL (chronic lymphocytic leukemia) C91.10
[2023-09-16 17:33] LABS: Reticulocyte % 2.42 % (0.50-2.00)
[2023-09-16 17:50] LABS: Iron 276 mcg/dl (35-175); Lactate Dehydrogenase 216 U/L (86-244); Unsaturated Iron Binding Cap < 55 mcg/dl (155-355)
[2023-09-16 18:04] LABS: Ferritin 255.2 ng/ml (8-388)
[2023-09-16 18:08] LABS: Folate (Folic Acid),Ser orPlas 10.2 ng/ml (>5.38)
[2023-09-16] MEDS ORDERED: ACETAMINOPHEN 325 MG TAB PO PRN (19:28)
[2023-09-16 22:53] LABS: Hematocrit (blood only) 19.8 % (42.0-52.0); Hemoglobin 5.8 g/dl (14.0-18.0)
--- NOTE | 2023-09-17 06:09 | Electrocardiogram Report ---
Test Reason : Blood Pressure : / mmHG Vent. Rate : 088 BPM Atrial Rate : 088 BPM P-R Int : 148 ms QRS Dur : 082 ms QT Int : 352 ms P-R-T Axes : 066 012 043 degrees QTc Int : 425 ms Normal sinus rhythm Normal ECG When compared with ECG of 30-APR-2021 14:16, No significant change was found Confirmed by Manjit Phoenix ([id number]) on 09/17/2023 6:08:30 AM Referred By: Confirmed By:Manjit Phoenix
[2023-09-17 06:37] LABS: Hematocrit (blood only) 16.1 % (42.0-52.0); Hemoglobin 4.8 g/dl (14.0-18.0); Mean Corpuscular Hemoglobin 33.6 pg (25.0-34.0); Mean Corpuscular Hgb Conc 29.8 g/dL (32.0-36.0); Mean Corpuscular Volume 112.6 fL (80.0-100.0); Nucleated RBC # (auto) 0.07 K/uL (0.00-0.12); Nucleated RBC % (auto) 0.1 %; Platelet Count 37 K/uL (130-400); RDW Standard Deviation 69.2 fL (36.4-46.3); Red Blood Count 1.43 M/uL (4.70-6.10); White Blood Count 95.91 K/ul (4.8-10.8)
[2023-09-17] MEDS ORDERED: SODIUM CHLORIDE 0.9% 250 ML IV PRN (06:45)
--- NOTE | 2023-09-17 06:53 | Communication Note ---
Date of Service: September 17, 2023 Notified of Hbg= 4.8. Saw pt at bedside, asymptomatic and hemodynamically stable. Called blood bank and blood on it's way. Ordered another 2 units irritated blood to have on hold.
[2023-09-17 07:08] LABS: BUN Creatinine Ratio 28.2 (10-20); Calcium 8.6 mg/dl (8.6-10.3); Creatinine Clr Calc Pharmacy 99.5 ml/min; Est GFR (African American) 107.5 ml/min; Est GFR (Non-African American) 92.8 ml/min; Potassium 3.8 mmol/L (3.5-5.1)
[2023-09-17 07:17] LABS: Basophils # (auto) 0.14 K/uL (0.00-0.20); Basophils % (auto) 0.1 %; Eosinophils # (auto) 0.03 K/uL (0.00-0.50); Immature Granulocytes # (auto) 0.15 K/uL (0.01-0.20); Immature Granulocytes % (auto) 0.2 %; Lymphocytes # (auto) 89.85 K/uL (1.20-3.40); Lymphocytes % (auto) 93.7 %; Macrocytosis Present; Monocytes # (auto) 3.49 K/uL (0.11-0.59); Monocytes % (auto) 3.6 %; Neutrophils # (auto) 2.25 K/uL (1.40-6.50); Neutrophils % (auto) 2.4 %; Polychromasia 1+; Smudge Cells Present
--- NOTE | 2023-09-17 07:54 | Hospitalist Progress Note ---
Date of Service September 17, 2023 Assessment & Plan (1) Symptomatic anemia: Plan: Suspected from progression of underlying CLL - planning on following up with Dr Foster B12, folate, retic, iron studies, LDH to assess for alternative causes Transfuse irradiated packed RBC to aim Hgb > 7, or asymptomatic - multiple antibodies therefore may take some time for this to arrive from outside facility Consult hematology Stopped prednisone and azithromycin given better explanation for this symptoms with anemia. 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 TSH checked in Jun, slight elevation but normal Ft4 (not on replacement at baseline). 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 Hgb 5.8--> 4.8, 2u irritated blood order, per blood bank on it's way. On 2nd unit of PRBC this afternoon, repeat CBC following and aiming to keep hgb >7 2 additional units ordered to be on hold if needed Hematology consult, Dr Brenner. Initially discussed w/ Dr Lyman but as patient planned to f/u Dr Foster however did not and was seen by Dr Brenner and plans to follow up at discharge with CCP. * They will arrange for initiating treatment with a combination on an outpatient basis. * If needed, could give 1 dose of anti-CD20 antibody while he is admitted -- rational to do so will strictly be the fact that he has severe symptomatic anemia and is requiring multiple blood transfusions. Decadron 40mg PO daily added per recs -Pepcid PO BID added for GI proph while on high dose steroids. -Monitor to need to switch to PPI If hgb does not respond, can start him on IVIG given that there may be an associated component of autoimmune hemolytic anemia with CLL. 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 Prior CT imaging of chest from 2020 during admission w/ [facility] noting "Mediastinal, hilar, axillary, and supraclavicular lymphadenopathy. There is also mild splenomegaly. Although potentially reactive to the viral process, these findings are concerning for a lymphoproliferative disorder." Elevated lymphocytes, Thrombocytopenia, anemia consistent with progression of CLL Hematology consult placed, was notified by providers on admission and offical consult/treatment as outlined above and will need ongoing f/u CCP at discharge. Ongoing recs appreciated by hematology/oncology. Consideration to start anti- CD20 antibody while inpatient or IVIG if hgb not responding to transfusion/decadron as outlined. Plan DVT proph: chemical proph deferred given above continued inpatient stay Admission and Anticipated Discharge Date Admission Date: September 16, 2023 Subjective Evaluated this afternoon, sitting up at bedside, eating cheeseburger, family at bedside. Seen by Jordin this morning, reports planning on following with him at discharge. On 2nd unit PRBC, plans to repeat blood counts following transfusion. Decadron added per hematology recommendations and will continue daily. Reports breathing stable at present, no lightheaded/dizziness, no chest pain. Go od appetite, no nausea/vomiting. Physical Exam Physical Exam: 68yo male sitting up at side of bed eati ng lunch, family in room, NAD, reports feels improved, getting 2nd unit PRBC at present time Eyes: + anicteric sclerae; normal pupil size ENMT: external ear and nose normal, oropharynx normal +cervical lymphadenopathy Respiratory: normal respiratory effort, lungs clear to auscultation Cardiovascular: RRR, no murmur, no edema Gastrointestinal (Abdomen): normal bowel sounds, soft, nontender, no hepatosplenomegaly slight distension Musculoskeletal: no cyanosis or clubbing, extremities motor strength 5/5 Skin: no rashes, warm and dry Neurologic: moves all extremities and awake; not confused Psychiatric: A+Ox3, euthymic affect Results & Data Results & Data Vital Signs (Past 12 Hours) Vital Signs Temp Pulse Pulse Resp BP BP Pulse Ox 09/17/23 07:44 71 09/17/23 04:15 36.7 C 76 18 98/56 L 95 09/16/23 23:45 75 09/16/23 22:26 36.3 C L 75 18 94/57 L 94 O2 Del Method 09/17/23 07:44 09/17/23 04:15 Room Air 09/16/23 23:45 09/16/23 22:26 Room Air Laboratory Results 09/17/23 09/16/23 09/16/23 Range/Units 05:17 22:39 18:20 WBC 95.91 H* (4.8-10.8) K/ul RBC 1.43 L (4.70-6.10) M/uL Hgb 4.8 L* 5.8 L* (14.0-18.0) g/dl Hct 16.1 L* 19.8 L* (42.0-52.0) % MCV 112.6 H (80.0-100.0) fL MCH 33.6 (25.0-34.0) pg MCHC 29.8 L (32.0-36.0) g/dL RDW Std Deviation 69.2 H (36.4-46.3) fL RDW Coeff of Ho 18.0 H (11.5-14.5) % Plt Count 37 L (130-400) K/uL MPV 11.0 (9.4-12.4) fL Immature Gran % (Auto) 0.2 % Neut % (Auto) 2.4 % Lymph % (Auto) 93.7 % [place] % (Auto) 3.6 % Eos % (Auto) 0.0 % Baso % (Auto) 0.1 % Reticulocyte % (Auto) (0.50-2.00) % Neut # (Auto) 2.25 (1.40-6.50) K/uL Lymph # (Auto) 89.85 H (1.20-3.40) K/uL [place] # (Auto) 3.49 H (0.11-0.59) K/uL Eos # (Auto) 0.03 (0.00-0.50) K/uL Baso # (Auto) 0.14 (0.00-0.20) K/uL Reticulocyte # (0.020-0.100) 10^6/uL Immature Gran # (Auto) 0.15 (0.01-0.20) K/uL Absolute Nucleated RBC 0.07 (0.00-0.12) K/uL Nucleated RBC % (auto) 0.1 % Smudge Cells Present Platelet Estimate (Normal) Polychromasia 1+ Hypochromasia Anisocytosis Macrocytosis Present PT (9.0-12.0) Seconds INR (0.9-1.1) APTT (21-31) Seconds PTT Ratio D-Dimer (0-500) ug/L FEU Sodium 141 (136-145) mmol/L Potassium 3.8 D (3.5-5.1) mmol/L Chloride 111 H (98-107) mmol/L Carbon Dioxide 26 (21-32) mmol/L Anion Gap 4 (3-11) BUN 22 (6-23) mg/dl Creatinine 0.78 (0.6-1.4) mg/dl Est Cr Clr Drug Dosing 99.5 ml/min Est GFR ( Amer) 107.5 ml/min Est GFR (Non-Af Amer) 92.8 ml/min BUN/Creatinine Ratio 28.2 H (10-20) Glucose 105 H (70-99(Fasting)) mg/dl Calcium 8.6 (8.6-10.3) mg/dl Magnesium 2.1 (1.7-2.4) mg/dl Iron (35-175) mcg/dl TIBC Unsaturated IBC (155-355) mcg/dl Transferrin % Sat Ferritin (8-388) ng/ml Total Bilirubin (0.2-1.0) mg/dl AST (13-39) U/L ALT (7-52) U/L Alkaline Phosphatase (34-104) U/L Lactate Dehydrogenase (86-244) U/L Troponin I High Sens (0-20) pg/ml Total Protein (6.0-8.3) gm/dl Albumin (3.4-5.0) gm/dl Globulin (2.5-4.0) gm/dl Albumin/Globulin Ratio (0.9-2) Vitamin B12 (180-914) pg/ml Folate (>5.38) ng/ml Urine Color Urine Appearance (Clear) Urine pH (4.5-7.5) Ur Specific [place] (1.000-1.030) Urine Protein (Negative) Urine Glucose (UA) (Negative) Urine Ketones (Negative) Urine Blood (Negative) Urine Nitrite (Negative) Urine Bilirubin (Negative) Urine Urobilinogen (Negative) Ur Leukocyte Esterase (Negative) Blood Type Blood Type Recheck Antibody Screen Antibody Identification Antibody ID Referred Pending Antibody ID Comment Crossmatch 09/16/23 09/16/23 09/16/23 Range/Units 16:44 16:05 16:00 WBC (4.8-10.8) K/ul RBC (4.70-6.10) M/uL Hgb (14.0-18.0) g/dl Hct (42.0-52.0) % MCV (80.0-100.0) fL MCH (25.0-34.0) pg MCHC (32.0-36.0) g/dL RDW Std Deviation (36.4-46.3) fL RDW Coeff of Ho (11.5-14.5) % Plt Count (130-400) K/uL MPV (9.4-12.4) fL Immature Gran % (Auto) % Neut % (Auto) % Lymph % (Auto) % [place] % (Auto) % Eos % (Auto) % Baso % (Auto) % Reticulocyte % (Auto) (0.50-2.00) % Neut # (Auto) (1.40-6.50) K/uL Lymph # (Auto) (1.20-3.40) K/uL [place] # (Auto) (0.11-0.59) K/uL Eos # (Auto) (0.00-0.50) K/uL Baso # (Auto) (0.00-0.20) K/uL Reticulocyte # (0.020-0.100) 10^6/uL Immature Gran # (Auto) (0.01-0.20) K/uL Absolute Nucleated RBC (0.00-0.12) K/uL Nucleated RBC % (auto) % Smudge Cells Platelet Estimate (Normal) Polychromasia Hypochromasia Anisocytosis Macrocytosis PT (9.0-12.0) Seconds INR (0.9-1.1) APTT (21-31) Seconds PTT Ratio D-Dimer (0-500) ug/L FEU Sodium (136-145) mmol/L Potassium (3.5-5.1) mmol/L Chloride (98-107) mmol/L Carbon Dioxide (21-32) mmol/L Anion Gap (3-11) BUN (6-23) mg/dl Creatinine (0.6-1.4) mg/dl Est Cr Clr Drug Dosing ml/min Est GFR ( Amer) ml/min Est GFR (Non-Af Amer) ml/min BUN/Creatinine Ratio (10-20) Glucose (70-99(Fasting)) mg/dl Calcium (8.6-10.3) mg/dl Magnesium (1.7-2.4) mg/dl Iron (35-175) mcg/dl TIBC Unsaturated IBC (155-355) mcg/dl Transferrin % Sat Ferritin (8-388) ng/ml Total Bilirubin (0.2-1.0) mg/dl AST (13-39) U/L ALT (7-52) U/L Alkaline Phosphatase (34-104) U/L Lactate Dehydrogenase (86-244) U/L Troponin I High Sens (0-20) pg/ml Total Protein (6.0-8.3) gm/dl Albumin (3.4-5.0) gm/dl Globulin (2.5-4.0) gm/dl Albumin/Globulin Ratio (0.9-2) Vitamin B12 593 (180-914) pg/ml Folate 10.20 (>5.38) ng/ml Urine Color Urine Appearance (Clear) Urine pH (4.5-7.5) Ur Specific [place] (1.000-1.030) Urine Protein (Negative) Urine Glucose (UA) (Negative) Urine Ketones (Negative) Urine Blood (Negative) Urine Nitrite (Negative) Urine Bilirubin (Negative) Urine Urobilinogen (Negative) Ur Leukocyte Esterase (Negative) Blood Type O Positive Blood Type Recheck O Positive Antibody Screen POSITIVE A Antibody Identification Auto Ly Agglutinin Antibody ID Referred Antibody ID Comment Cancelled Crossmatch See Detail 09/16/23 09/16/23 Range/Units 15:17 15:15 WBC 133.12 H* (4.8-10.8) K/ul RBC 1.80 L (4.70-6.10) M/uL Hgb 5.9 L* (14.0-18.0) g/dl Hct 20.7 L* (42.0-52.0) % MCV 115.0 H (80.0-100.0) fL MCH 32.8 (25.0-34.0) pg MCHC 28.5 L (32.0-36.0) g/dL RDW Std Deviation 69.9 H (36.4-46.3) fL RDW Coeff of Ho 18.6 H (11.5-14.5) % Plt Count 46 L (130-400) K/uL MPV 10.7 (9.4-12.4) fL Immature Gran % (Auto) 0.2 % Neut % (Auto) 2.9 % Lymph % (Auto) 93.3 % [place] % (Auto) 3.5 % Eos % (Auto) 0.0 % Baso % (Auto) 0.1 % Reticulocyte % (Auto) 2.42 H (0.50-2.00) % Neut # (Auto) 3.71 (1.40-6.50) K/uL Lymph # (Auto) 124.18 H (1.20-3.40) K/uL [place] # (Auto) 4.68 H (0.11-0.59) K/uL Eos # (Auto) 0.03 (0.00-0.50) K/uL Baso # (Auto) 0.19 (0.00-0.20) K/uL Reticulocyte # 0.040 (0.020-0.100) 10^6/uL Immature Gran # (Auto) 0.33 H (0.01-0.20) K/uL Absolute Nucleated RBC 0.05 (0.00-0.12) K/uL Nucleated RBC % (auto) % Smudge Cells Platelet Estimate Decreased L (Normal) Polychromasia 1+ Hypochromasia Present Anisocytosis Present Macrocytosis Present PT 11.6 (9.0-12.0) Seconds INR 1.1 (0.9-1.1) APTT 23 (21-31) Seconds PTT Ratio 0.8 D-Dimer 190 (0-500) ug/L FEU Sodium 137 (136-145) mmol/L Potassium 5.0 (3.5-5.1) mmol/L Chloride 108 H (98-107) mmol/L Carbon Dioxide 23 (21-32) mmol/L Anion Gap 6 (3-11) BUN 28 H (6-23) mg/dl Creatinine 0.99 (0.6-1.4) mg/dl Est Cr Clr Drug Dosing 78.4 ml/min Est GFR ( Amer) 90.3 ml/min Est GFR (Non-Af Amer) 77.9 ml/min BUN/Creatinine Ratio 28.3 H (10-20) Glucose 133 H (70-99(Fasting)) mg/dl Calcium 8.7 (8.6-10.3) mg/dl Magnesium 1.9 (1.7-2.4) mg/dl Iron 276 H (35-175) mcg/dl TIBC TNP Unsaturated IBC < 55 L (155-355) mcg/dl Transferrin % Sat TNP Ferritin 255.2 (8-388) ng/ml Total Bilirubin 1.1 H (0.2-1.0) mg/dl AST 16 (13-39) U/L ALT 9 (7-52) U/L Alkaline Phosphatase 90 (34-104) U/L Lactate Dehydrogenase 216 (86-244) U/L Troponin I High Sens 7.4 (0-20) pg/ml Total Protein 6.0 (6.0-8.3) gm/dl Albumin 4.5 (3.4-5.0) gm/dl Globulin 1.5 L (2.5-4.0) gm/dl Albumin/Globulin Ratio 3.0 H (0.9-2) Vitamin B12 (180-914) pg/ml Folate (>5.38) ng/ml Urine Color Yellow Urine Appearance Clear (Clear) Urine pH 5.5 (4.5-7.5) Ur Specific [place] 1.018 (1.000-1.030) Urine Protein Negative (Negative) Urine Glucose (UA) Negative (Negative) Urine Ketones Negative (Negative) Urine Blood Negative (Negative) Urine Nitrite Negative (Negative) Urine Bilirubin Negative (Negative) Urine Urobilinogen Negative (Negative) Ur Leukocyte Esterase Negative (Negative) Blood Type Blood Type Recheck Antibody Screen Antibody Identification Antibody ID Referred Antibody ID Comment Crossmatch Diagnostic Findings Chest X-Ray 09/16/23 15:08 XR chest 1V portable CLINICAL HISTORY: Dyspnea COMPARISON STUDY: Chest CT September 19, 2021. Chest radiograph September 14, 2023. FINDINGS: Lung volumes are mildly diminished. Minimal left basilar opacity favors atelectasis. There is no pneumothorax or pleural effusion. Cardiac size is normal. Mediastinal contours are normal. There is no evidence for pulmonary edema. IMPRESSION: No acute cardiopulmonary findings. ACT 112: Negative or not required by law. Electronically signed by: Gerry Lennon M.D. 09/16/2023 3:53 PM PG Care Time/CCT Total # of Minutes Spent Total Time Spent with Patient: Total time spent is greater than 50% in coordination of care (as documented) at patient's floor/unit and/or counseling patient: Coding Level of Care Code 70619 SUB INP/OBS CARE 50MIN Diagnoses Symptomatic anemia D64.9 CLL (chronic lymphocytic leukemia) C91.10
[2023-09-17 10:17] LABS: Magnesium 2.1 mg/dl (1.7-2.4)
[2023-09-17] MEDS: MAGNESIUM SULFATE / D5W 1 GM/100 ML BAG IV ONE (11:07)
--- NOTE | 2023-09-17 11:37 | Oncology Consultation ---
Date of Consultation September 17, 2023 Assessment & Plan (1) CLL (chronic lymphocytic leukemia): At this point the patient has Stiles stage IV CLL, given that he is symptomatic from the anemia, hemoglobin is less than 7 g/dL, platelet count is less than 50,000/mcL. He obviously warrants treatment for the CLL. This could be instituted once he is stabilized discharge from the hospital. My recommendation would be to institute therapy with obinutuzumab plus venetoclax according to the clinical trial published in [place] [employer] in 2019. We will arrange for initiating treatment with a combination on an outpatient basis. If needed I can give him 1 dose of anti-CD20 antibody while he is admitted. The rational to do so will strictly be the fact that he has severe symptomatic anemia and is requiring multiple blood transfusions. (2) Symptomatic anemia: The patient is currently symptomatic from the anemia. He is needing a blood transfusion. Will recommend at least 2 packed red blood cell transfusions to increase the hemoglobin greater than 7 g/dL. The patient will also need IV/PO but obviously the mainstay of treatment for the anemia would be blood transfusions to maintain hemoglobin level over 7 g/dL. Decadron 40 mg. If his hemoglobin does not then can start him on IVIG given that there may be an associated component of autoimmune hemolytic anemia with CLL. (3) Thrombocytopenia: Thrombocytopenia is again secondary to the CLL. Transfuse if the platelet count is less than 10,000/mcL or the patient is actively bleeding. (4) Leukocytosis: Leukocytosis secondary to CLL. Since this is related to chronic lymphocytic leukemia, the patient does not need leukocyte a pheresis as these patients are not prone to hyperviscosity crisis. Plan Hematology will continue to follow the patient. The patient was given information about obinutuzumab/venetoclax combination. I had a discussion with the hospitalist in the ER yesterday. I will schedule an appointment in the clinic to initiate treatment with obinutuzumab/venetoclax combination. Thank you for this interesting urological consult. A total of 60 minutes were spent in counseling, coordination of care and review of prior records. History of Present Illness Reason for Consultation: Chronic lymphocytic leukemia Attending Physician: Sammie Baker MD History of Present Illness The patient is a very pleasant 68-year-old gentleman prior diagnosis of CLL who came to [facility] with increased weakness and fatigue. at admission he was found to have a WBC count of 133,000/mcL, hemoglobin of 5.8 g/dL, platelet count 34,000/mcL. Hematology was consulted to assist in management of this patient with untreated CLL, who has now become anemic as well as thrombocytopenic. Previously he had seen my colleague Dr. Rodney Foster, as well as Dr. Lyman in 2021 who had recommended treatment. Currently he is very fatigued, is getting a blood transfusion. He has not had any infections or other hospitalizations recently. Does not report any active bleeding or bruising. Allergies Allergy/AdvReac Type Severity Reaction Status Date / Time No Known Drug Allergies Allergy Unknown Unknown Verified 09/16/23 16:09 Home Medications Medication Instructions Recorded Confirmed Type ascorbate calcium (vitamin C) 500 500 mg PO Q OTHER DAY 07/17/22 09/16/23 History mg tablet ndfnaqu-gfndpafli-rgcb 333 mg-133 1 tab PO Q OTHER DAY 07/17/22 09/16/23 History mg-5 mg tablet cholecalciferol (vitamin D3) 25 25 mcg PO Q OTHER DAY 07/17/22 09/16/23 History mcg (1,000 unit) capsule ferrous sulfate 325 mg (65 mg 325 mg PO Q OTHER DAY 07/17/22 09/16/23 History iron) tablet (Feosol) lactobacillus combination no.4 3 3,000 mmu cells PO DAILY 07/17/22 09/16/23 History billion cell capsule (Probiotic) mecobalamin (vitamin B12) 1,000 1,000 mcg PO DAILY 07/17/22 09/16/23 History mcg chewable tablet omega-3 fatty acids 1,000 mg 1,000 mg PO DAILY 07/17/22 09/16/23 History capsule vitamin A 2,400 mcg capsule 2,400 mcg PO DAILY 07/17/22 09/16/23 History cyclobenzaprine 10 mg tablet 10 mg PO TID PRN muscle spasm #60 06/20/23 09/16/23 Rx tabs ystydhyse-axhle-twn-man-zinc tablet 1 tab PO DAILY 06/20/23 09/16/23 History azithromycin 250 mg tablet See Rx Instructions PO .COMPLEX #6 09/14/23 09/16/23 Rx tabs prednisone 10 mg tablet 40 mg (4 x 10 mg) PO DAILY 7 days 09/14/23 09/16/23 Rx #28 tabs Patient History Medical History Acute respiratory failure with hypoxia 2018 novel coronavirus-infected pneumonia (NCIP) B-cell lymphoma Somatic dysfunction of pelvic region Somatic dysfunction of rib Somatic dysfunction of cervical region Somatic dysfunction of lumbar region Somatic dysfunction of thoracic region Incarcerated right inguinal hernia Proctitis Kidney infection Fall 2018 Surgical History History of colonoscopy History of appendectomy H/O right inguinal hernia repair Family History Father Blood transfusion reaction patient's father (age 66) after having a reaction to platelet transfusion following prostatectomy. Prostate cancer Brother , 06/27/2020 at age 67 Brain tumor, Onset Age: 66 Diagnosed with malignant brain tumor last February 2020 Mother Heart disease Other No family history of adverse response to anesthesia No family history of bleeding disorder No pertinent family history in first degree relatives Denies family history of Ovarian cancer Myocardial infarction Breast cancer Colorectal cancer Social History Smoking Status: Never smoker Second Hand Exposure: No; Do You Dip or Chew Tobacco: No; Hx Alcohol Use: Yes Alcohol type: beer Hx Substance Use: No Preferred Language: Hebrew Communication Ability: Effective Hearing Ability: Hard of Hearing 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 How many Children do You have: 3 Other Information That Helps Us Care for You: No Feels Safe at Home: Yes Safety Concerns: Feels Safe At This Time Childhood Exposure to Second-Hand Smoke: Yes Diet: regular caffeine: Yes (Coffee ) Dental Care, Regularly: Yes Physical Activity Frequency: Daily Physical Activity Frequency Comment: Walking, daily housework/cleaning Seatbelt Use: always Sunscreen Use: No Assistive Devices: Denture - Upper, Denture - Lower and Glasses Review of Systems Review of Systems: Patient is tired and fatigued, needing blood transfusion Constitutional: + fatigue Eyes: as per Subjective / HPI Ear, Nose, Mouth, Throat: as per Subjective / HPI Respiratory: as per Subjective / HPI Cardiovascular: as per Subjective / HPI Gastrointestinal: as per Subjective / HPI Genitourinary: + as per Subjective / HPI Musculoskeletal: as per Subjective / HPI Integumentary: as per Subjective / HPI Neurologic: as per Subjective / HPI Endocrine: as per Subjective / HPI Hematologic / Lymphatic: as per Subjective / HPI Allergy / Immunological: as per Subjective / HPI Physical Exam Constitutional: WD/WN, vitals as above Eyes: PERRL, conjunctivae normal, anicteric sclerae ENMT: external ear and nose normal, oropharynx normal Neck: trachea midline, no thyromegaly Respiratory: normal respiratory effort, lungs clear to auscultation Cardiovascular: RRR, no murmur, no edema Gastrointestinal (Abdomen): normal bowel sounds, soft, nontender, no hepatosplenomegaly Musculoskeletal: no cyanosis or clubbing, extremities motor strength 5/5 Skin: no rashes, warm and dry Neurologic: patellar DTR's 2+ bilat, sensation intact Results & Data Vital Signs (Past 12 Hours) Vital Signs Temp Pulse Pulse Resp BP BP Pulse Ox 09/17/23 10:55 37.0 C 78 18 116/70 96 09/17/23 10:25 36.8 C 81 18 101/61 95 09/17/23 10:10 36.6 C 77 18 103/62 96 09/17/23 09:51 36.5 C 80 18 110/61 94 09/17/23 08:15 36.6 C 79 20 94/56 L 94 09/17/23 07:44 71 09/17/23 04:15 36.7 C 76 18 98/56 L 95 09/16/23 23:45 75 O2 Del Method O2 Flow Rate 09/17/23 10:55 09/17/23 10:25 0 09/17/23 10:10 0 09/17/23 09:51 09/17/23 08:15 Room Air 09/17/23 07:44 09/17/23 04:15 Room Air 09/16/23 23:45
[2023-09-17] MEDS: dexAMETHasone 4 MG TAB PO SCH (14:42)
[2023-09-17 17:14] LABS: BUN Creatinine Ratio 21.1 (10-20); Calcium 8.4 mg/dl (8.6-10.3); Creatinine Clr Calc Pharmacy 81.7 ml/min; Est GFR (African American) 94.9 ml/min; Est GFR (Non-African American) 81.9 ml/min; Potassium 4.8 mmol/L (3.5-5.1)
[2023-09-17 17:22] LABS: Hematocrit (blood only) 23.9 % (42.0-52.0); Hemoglobin 7.6 g/dl (14.0-18.0); Mean Corpuscular Hemoglobin 32.9 pg (25.0-34.0); Mean Corpuscular Hgb Conc 31.8 g/dL (32.0-36.0); Mean Corpuscular Volume 103.5 fL (80.0-100.0); Mean Platelet Volume 9.9 fL (9.4-12.4); Nucleated RBC # (auto) 0.07 K/uL (0.00-0.12); Nucleated RBC % (auto) 0.1 %; Platelet Count 38 K/uL (130-400); RDW Coefficient of Variation 22.3 % (11.5-14.5); RDW Standard Deviation 80.1 fL (36.4-46.3); Red Blood Count 2.31 M/uL (4.70-6.10); White Blood Count 85.08 K/ul (4.8-10.8)
[2023-09-17 17:36] LABS: Anisocytosis Present; Basophils # (auto) 0.18 K/uL (0.00-0.20); Basophils % (auto) 0.2 %; Eosinophils # (auto) 0.05 K/uL (0.00-0.50); Eosinophils % (auto) 0.1 %; Immature Granulocytes # (auto) 0.11 K/uL (0.01-0.20); Immature Granulocytes % (auto) 0.1 %; Lymphocytes % (auto) 91.6 %; Macrocytosis Present; Monocytes # (auto) 4.57 K/uL (0.11-0.59); Monocytes % (auto) 5.4 %; Neutrophils # (auto) 2.27 K/uL (1.40-6.50); Neutrophils % (auto) 2.6 %; Smudge Cells Present
[2023-09-17] MEDS: FAMOTIDINE 10 MG TABLET PO SCH (20:06)
[2023-09-18 06:30] LABS: Albumin Globulin Ratio 2.9 (0.9-2); Albumin Level 4.3 gm/dl (3.4-5.0); BUN Creatinine Ratio 32.9 (10-20); Bilirubin,Total 0.8 mg/dl (0.2-1.0); Calcium 8.9 mg/dl (8.6-10.3); Creatinine Clr Calc Pharmacy 98.2 ml/min; Est GFR (African American) 106.9 ml/min; Est GFR (Non-African American) 92.3 ml/min; Globulin 1.5 gm/dl (2.5-4.0); Magnesium 2.2 mg/dl (1.7-2.4); Potassium 5.2 mmol/L (3.5-5.1); Total Protein 5.8 gm/dl (6.0-8.3)
[2023-09-18 07:21] LABS: Hematocrit (blood only) 25.3 % (42.0-52.0); Hemoglobin 7.6 g/dl (14.0-18.0); Mean Corpuscular Hemoglobin 31.1 pg (25.0-34.0); Mean Corpuscular Volume 103.7 fL (80.0-100.0); Mean Platelet Volume 10.5 fL (9.4-12.4); Nucleated RBC # (auto) 0.04 K/uL (0.00-0.12); Platelet Count 44 K/uL (130-400); RDW Coefficient of Variation 22.7 % (11.5-14.5); RDW Standard Deviation 79.6 fL (36.4-46.3); Red Blood Count 2.44 M/uL (4.70-6.10); White Blood Count 147.89 K/ul (4.8-10.8)
[2023-09-18 07:35] LABS: Anisocytosis Present; Basophils # (auto) 0.08 K/uL (0.00-0.20); Basophils % (auto) 0.1 %; Eosinophils # (auto) 0.04 K/uL (0.00-0.50); Immature Granulocytes # (auto) 0.36 K/uL (0.01-0.20); Immature Granulocytes % (auto) 0.2 %; Lymphocytes # (auto) 139.95 K/uL (1.20-3.40); Lymphocytes % (auto) 94.6 %; Monocytes # (auto) 3.98 K/uL (0.11-0.59); Monocytes % (auto) 2.7 %; Neutrophils # (auto) 3.48 K/uL (1.40-6.50); Neutrophils % (auto) 2.4 %; Smudge Cells Present
--- NOTE | 2023-09-18 11:30 | Discharge Summary ---
Date of Service September 18, 2023 Admission HPI Per Admitting Provider Domenic Reardon is a 68-year-old male with CLL who presents to the ER with shortness of breath, fatigue and pain in shoulders and neck. He reports symptoms started about a week ago. Worse on exertion. He was seen by his PCP on Sunday and given steroids and azithromycin for possible infection ?sinuses, labs ordered and had planned to get these on Sunday. However today he was pushing his mower and his symptoms were more severe therefore decided to come to the ER. No dizziness, lightheadedness or chest pain. He denies any fever, chills, cough, nasal congestion, abdominal pain, diarrhea, urinary symptoms. Admission Exam Per Admitting Provider Constitutional: WD/WN, vitals as above Eyes: + anicteric sclerae; normal pupil size ENMT: external ear and nose normal, oropharynx normal Respiratory: normal respiratory effort, lungs clear to auscultation Cardiovascular: RRR, no murmur, no edema Gastrointestinal (Abdomen): normal bowel sounds, soft, nontender, no hepatosplenomegaly Musculoskeletal: no cyanosis or clubbing, extremities motor strength 5/5 Skin: no rashes, warm and dry Neurologic: moves all extremities and awake; not confused Psychiatric: A+Ox3, euthymic affect Principal Diagnosis symptomatic anemia Discharge Exam General: AAOx3, afebrile, NAD CV: RRR, no r/m/g Pulm: CTA bilaterally, normal respiratory effort, no respiratory distress GI: soft, non-distended, non-tender Ext: no swelling or calf tenderness in b/l LE Discharge Data Allergies Allergy/AdvReac Type Severity Reaction Status Date / Time No Known Drug Allergies Allergy Unknown Unknown Verified 09/16/23 16:09 Consultations 09/16/23 16:01 ED Decision to Admit Stat 09/17/23 07:46 Consult Oncology Routine Hospital Course (1) Thrombocytopenia: (2) Symptomatic anemia: (3) CLL (chronic lymphocytic leukemia): Plan Mr. Mccoy is a 68 y/o male with PMHx of CLL who was admitted due to symptomatic anemia, and Hgb at the time of admission was found to be ~5 with repeat after a few hours being ~4. Symptomatic Anemia (Improved) - Likely due to progression of CLL given thrombocytopenia and increasing WBC count - B12 normal and Iron levels normal-elevated - S/p transfusion of 2 units of PRBC with correction of Hgb from 4.8 to 7.6 yesterday - This am labs showing stable Hgb at 7.6 and patient not experiencing symptoms as he was prior to admission - Mild hyperkalemia (5.2) likely due to hemolysis. Given Patiromer to give breathing room should his hemolysis continue after discharge. 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 Brenner after discharge, who discussed treatment plan with patient during this admission, which will begin after discharge. For more details regarding this treatment plan, please refer to their note. Patient found stable and fit to be discharged today. Total Time Total Time Spent Total Time Spent (In Minutes): <30 Discharge Plan Discharge Items Patient Disposition: Home - Self-Care Reason For Visit: SYMPTOMATIC ANEMIA, PROGRESSION CLL Discharge Diagnosis: symptomatic anemia Activity: Per Instructions section Non-emergency contact: Primary Care Provider and Oncologist Call non-emergency contact if: your symptoms worsen and your temperature is above 101 Follow-up/Referrals: Khang Bernabe DO [Primary Care Provider] - 09/25/23 12:00 pm Dennys Brenner MD [Physician] - (The office will call you to make a follow up appointment.) Diet: Regular Ambulatory Orders: Basic Metabolic Panel (Routine) Timeframe: 3 Days Location: Determined by Patient Ordered By: Ethel Natarajan Attending Provider Instructions: You were admitted to the hospital due to a low blood count (anemia) that lead to symptoms of fatigue and shortness of breath that was worse with exertion. You were given 2 units of blood to correct this anemia with successful improvement with regards to your symptoms, and today you are found stable and fit to be discharged. Your anemia was very likely related to your history of CLL. While in the hospital, your oncologist discussed the next steps with regards to the treatment for your CLL, and we advise you follow up with them. A discharge summary will be sent to your primary care physician to ensure continuity of care. Please bring this discharge summary with you to your next office appointment so that your provider can review it at that time. Follow-up appointments: Make a follow-up appointment with your PCP within the next week. It is very important that you follow up with them shortly after discharge from the hospital. Keep all your follow-up appointments as already scheduled. If you cannot make an appointment, notify your provider. Medications: Your medication list has been reviewed and reconciled upon discharge to ensure accuracy and continuity of care. An updated list of all your medications is included with your hospital discharge paperwork. Please review this list closely, and make note of any changes. You also have an order for a BMP that should be done in 4 days (Sunday). If you have any issues filling these prescriptions, please call [phone] and ask to leave a message for Dr. Weaver. Take your medications as instructed; do not skip a dose of your medicines. Make sure all of your doctors know every medicine you are taking (including cerk-fhj-onbqopr medicines, vitamins, and supplements). Call your primary care provider before taking any new medicines (including over- the-counter medicines, vitamins, and supplements), because some of these may interact with your current medications, or may make your symptoms worse. Tell your primary care provider if you cannot afford your medications. CONTACT YOUR PRIMARY CARE PROVIDER if you experience any of the following: Worsening of symptoms Fever, chills, or fatigue Difficulty following your treatment plan, or difficulty taking medications CALL 911 OR GO TO THE EMERGENCY DEPARTMENT if you experience any of the following: Sudden, severe abdominal pain or nausea/vomiting Severe chest pain, or chest pain that radiates (moves) to your jaw or arm Sudden, severe shortness of breath or difficulty breathing Thank you for allowing us to participate in your care. Pending Studies at Discharge: No Stand-Alone Forms: My [employer], Smoking Cessation Medications and DC Order Prescriptions: Continued ascorbate calcium (vitamin C) 500 mg tablet 500 mg PO Q OTHER DAY omega-3 fatty acids 1,000 mg capsule 1,000 mg PO DAILY vitamin A 2,400 mcg capsule 2,400 mcg PO DAILY mecobalamin (vitamin B12) 1,000 mcg tablet,chewable 1,000 mcg PO DAILY cholecalciferol (vitamin D3) 25 mcg (1,000 unit) capsule 25 mcg PO Q OTHER DAY ferrous sulfate [Feosol] 325 mg (65 mg iron) tablet 325 mg PO Q OTHER DAY monzjkk-zwxxqukuy-mlrw 333-133-5 mg tablet 1 tab PO Q OTHER DAY Probiotic 3 billion cell capsule 3,000 mmu cells PO DAILY Rx Instructions: administer with a meal qxivkxyku-mzerj-lrp-man-zinc Tablet 1 tab PO DAILY Rx Instructions: orally daily; cyclobenzaprine 10 mg tablet 10 mg PO TID PRN (Reason: muscle spasm) Qty: 60 3RF prednisone 10 mg tablet 40 mg PO DAILY 7 Days Qty: 28 0RF azithromycin 250 mg tablet See Rx Instructions PO .COMPLEX Qty: 6 0RF Rx Instructions: For 250 mg dose pack: take 500 mg today (day 1), then 250 mg for 4 days (days 2-5) PO Discharge Orders: Discharge Order (Routine); Ordered 09/18/23 Ordered By: Ethel Weaver Admission Data Admit Date/Time: 09/16/23 16:55 Attending Provider: Willie Gonzalez Admit Provider: Connor Tony Primary Care Provider: Khang Bernabe Other Providers: Connor Tony; Dennys Brenner Other Interventions: Discharge Summary Assessment (RN) Last Done: 09/18/23 12:30 Supervising Physician Co-Signing Physician Notes I personally examined the patient and verified all jones points of history and exam, discussed case, and agree with decision making with Dr Weaver Feels okay and would like to go home. Discussed labs and follow-up. Vitals noted, in general he is awake and alert pleasant no distress. HEENT normocephalic atraumatic mucous membranes moist. Breathing unlabored no accessory muscle use good effort. Skin shows no rashes no pallor or icterus. CLLfor close outpatient hematology follow-up. Mild hyperkalemialikely mostly relates to transfusion, but given concern for any small degree of ongoing hyperkalemiagave a dose of patiromer, and will repeat basic metabolic panel later this week. Otherwise as above. Resident Activity Tracking Resident Involvement: Resident Care Provided Care Provided: Adult Hospital Medicine
[2023-09-18] MEDS: PATIROMER CALCIUM SORBITEX 8.4 GM PACK PO SCH (11:40)
--- NOTE | 2023-09-18 18:14 | Billing Data ---
Date of Service September 18, 2023 Coding Level of Care Code 08237 IN/OBS DISCH 30 MIN/LESS
== END 2023-09-18 13:56 | disposition home or self-care (01) | DRG 841 ==
LOC: ED 14:38 → SUATTDRO 16:55 → 2W 16:55